=== PATIENT | male | born 1955 | race Caucasian/White ===

== ENCOUNTER 2021-05-03 18:32 | Inpatient (IN) | payer MEDICARE, SELFPAY ==
[2021-05-03] VITALS (8 sets, daily range): BP systolic 149–187; BP diastolic 99–123; PULSE 73–106; RESP 12–19; TEMP 36.1–36.6; O2SAT 94–97; BMI 35.0
--- NOTE | 2021-05-03 18:34 | EKG12_ITS ---
Test Reason : Blood Pressure : / mmHG Vent. Rate : 081 BPM Atrial Rate : 081 BPM P-R Int : 156 ms QRS Dur : 096 ms QT Int : 410 ms P-R-T Axes : 059 002 038 degrees QTc Int : 476 ms Normal sinus rhythm Inferior infarct , age undetermined Abnormal ECG Confirmed by TINO SHANKAR, JOHNATHON ([id number]), editor school photograph RACH MILES ([id number]) on 05/05/2021 11:01:30 AM Referred By: Confirmed By:JOHNATHON JIMÉNEZ MD
--- NOTE | 2021-05-03 18:34 | CT_ITS ---
STUDY: CT BRAIN WITHOUT CONTRAST REASON FOR EXAM: Male, 66 years old. Headache vertigo vomiting RADIATION DOSAGE (If Supplied By Facility): CTDIvol = ( 44.99 ) mGy, DLP = ( 880.47 ) mGycm TECHNIQUE: Transaxial CT imaging of the brain was performed without administration of intravenous contrast material. Individualized dose optimization techniques were used for this CT. COMPARISON: No relevant priors. FINDINGS: Brain parenchyma is without focal lesions, mass effect, acute intracranial hemorrhage, extra parenchymal fluid collections, hydrocephalus or herniation. The skull is intact. CT/Brain/Head without Contrast IMPRESSION: 1. Normal CT brain. Electronically Signed: Funmilayo Edouard MD at 19:31 EDT Tel , Service support ,
--- NOTE | 2021-05-03 18:36 | EX.ED.DYSGE1 ---
HPI History of Present Illness Chief Complaint: Weakness Informant: patient Narrative Narrative: 66-year-old male with a history of asthma states when he woke up this morning he felt very lightheaded and noted an occipital headache. He states it progressively has gotten worse throughout the day. He was able to eat dinner but after dinner everything seemed to get worse and he began to vomit. He notes that when he moves his eyes from side to side things do not focus as they should. But he denies any double vision. He notes tingling in his fingertips on both sides. No recent falls or head injuries. He describes dizziness not as a room spinning sensation but more of a lightheadedness [facility] Medical History (Updated 05/03/21 @ 21:[address] James Reyes DO) Asthma Home Medications albuterol sulfate [Ventolin HFA] 2 puff INHALATION Q6H PRN PRN 10/28/14 [History Last Taken Unknown] fluticasone propion-salmeterol [Advair Diskus] 1 puff INHALATION BID 10/28/14 [History Last Taken 10/31/14 09:00] Allergy/AdvReac Type Severity Reaction Status Date / Time latex Allergy Rash Verified 05/03/21 18:33 Surgical History H/O inguinal hernia repair H/O ventral hernia repair Social History (Updated 05/03/21 @ 18:[address] James Reyes DO) Smoking Status: Former smoker substance use type: does not use ROS ROS ED ROS Narrative Lightheadedness Constitutional Constitutional ED: Denies chills or weight loss Eyes Eyes: Reports change in vision; Denies diplopia ENT ENT ED: Denies ear pain, rhinorrhea or sore throat Cardiovascular Cardiovascular: Denies chest pain, orthopnea, palpitations or racing heartbeat Respiratory/Chest Respiratory/Chest: Denies cough, dyspnea or orthopnea Gastrointestinal Gastrointestinal: Reports nausea and vomiting; Denies abdominal pain or diarrhea Genitourinary Genitourinary ED: Denies dysuria, hematuria or urinary frequency Musculoskeletal Musculoskeletal: Denies arthralgias or myalgias Integumentary Denies abscess or rash Neurologic Neurologic: Reports headache(s); Denies weakness Psychiatric Psychiatric: Denies anxiety, depression, suicidal ideation or suicidal thoughts Endocrine Endocrinology: Denies polydipsia, polyphagia or polyuria Allergic/Immunologic Allergic/Immunologic ED: Denies mouth swelling, tongue swelling or urticaria EXAM Physical Exam Const Vital Signs: 05/03/21 18:33 05/03/21 18:38 05/03/21 18:53 Temperature 97.9 F Temperature Source Oral Pulse Rate 100 78 Respiratory Rate 18 12 Respiratory Effort Normal Non-Labored Respiratory Pattern Normal Blood Pressure 172/123 H 162/112 H Blood Pressure Mean 139 128 Pulse Ox 94 94 Oxygen Delivery Method Room Air Room Air 05/03/21 19:26 05/03/21 21:24 05/03/21 22:16 Temperature Temperature Source Pulse Rate 79 73 78 Respiratory Rate 17 15 16 Respiratory Effort Respiratory Pattern Blood Pressure 149/115 H 187/115 H 172/101 H Blood Pressure Mean 126 139 124 Pulse Ox 94 97 96 Oxygen Delivery Method Room Air Room Air Room Air 05/03/21 22:47 Temperature Temperature Source Pulse Rate 102 H Respiratory Rate 16 Respiratory Effort Respiratory Pattern Blood Pressure 162/99 H Blood Pressure Mean 120 Pulse Ox 95 Oxygen Delivery Method Room Air Positive well nourished and well developed General Appearance ED: well developed HEENT Reports normocephalic, head/scalp atraumatic, TM's clear and moist mucous membranes Negative for trauma Tympanic Membrane ED: Yes TM's clear Eyes PERRL and EOMs intact bilaterally Neck no lymphadenopathy, supple and no JVD Resp normal respiratory effort and clear to auscultation bilaterally Cardio regular rate, regular rhythm and no murmurs GI normal to inspection, nondistended, normoactive bowel sounds and non-tender Palpation: soft Back/Spine no CVA tenderness and normal ROM Extremity normal to inspection General Extremety ED: Negative for edema General Extremity: Negative for edema Neuro oriented x3 and CN's II-XII intact bilaterally Neuro Narrative: I do not appreciate nystagmus. He has a normal [id number] [id number]. Her scores NIH is 0. Watching him go from cot to bed he appears rather ataxic. Sensorium / Orientation: alert Motor Exam: strength 5/5 throughout Psych mental status grossly normal Mood & Affect: Negative for depressed or tearful Skin no rashes or lesions noted and no wounds MDM MDM MDM Narrative Medical decision making narrative: When the patient ambulates it appears that he is ataxic. White count elevated 12.8. Coags normal. Troponin XX [address] of the brain showed no acute finding. My interpretation of the chest x-ray is no acute process. Patient remains significantly hypertensive. He received a dose of clonidine which was ineffective so we gave him hydralazine. Currently blood pressure 162/99 and he is resting comfortably in the bed. Difficult to say if this is all hypertensive urgency or perhaps the patient had a cerebellar stroke rendering him ataxic. I think it is reasonable given his lack of history of hypertension to bring him into the hospital for further evaluation I will speak with her hospitalist Lab Data Attestation: I reviewed the patient's lab results. Labs: Laboratory Results - last 24 hr 05/03/21 05/03/21 05/03/21 18:40 18:40 18:40 WBC 12.8 H RBC 5.24 Hgb 15.4 Hct 47.7 MCV 91.0 MCH 29.4 MCHC 32.3 RDW Std Deviation 44.7 H RDW Coeff of [place] 13.2 Plt Count 288 MPV 9.9 Immature Gran % (Auto) 0.500 Neut % (Auto) 86.4 H Lymph % (Auto) 8.1 L [place] % (Auto) 4.4 Eos % (Auto) 0.1 Baso % (Auto) 0.5 Absolute Neuts (auto) 11.1 H Absolute Lymphs (auto) 1.04 Nucleated RBC % 0 PT 12.9 INR 1.0 APTT 29.1 Sodium 136 Potassium 3.8 Chloride 103 Carbon Dioxide 24.0 Anion Gap 9 BUN 14 Creatinine 1.19 Estim Creat Clear Calc 69.94 Est GFR (MDRD) Af Amer 79 Est GFR (MDRD) Non-Af 65 BUN/Creatinine Ratio 11.8 Glucose 185 H Calcium 9.3 Total Bilirubin 0.50 AST 19 ALT 40 Alkaline Phosphatase 116 Troponin I High Sens 23 Total Protein 8.4 H Albumin 3.7 Globulin 4.7 H Albumin/Globulin Ratio 0.8 L Lipase 47 L Radiography Diagnostic Testing: Clinical Impression(s) from Imaging Studies Brain CT 05/03/21 18:34 IMPRESSION: 1. Normal CT brain. Electronically Signed: Funmilayo Edouard MD at 19:31 EDT Tel , Service support , Chest X-Ray 05/03/21 19:09 IMPRESSION: Normal x-ray examination of the chest. Electronically Signed: Destiney Kimbrough MD at 21:48 EDT Tel , Service support , EKG Initial EKG: Attestation: I personally reviewed and interpreted this EKG as follows: Comments: Normal sinus rhythm with a ventricular rate of 81 bpm. Discharge Plan Dx/Rx/DC Orders Clinical Impression: Ataxia, Vomiting, Hypertensive urgency Disposition Disposition: Acute Care Hospital [facility]
[2021-05-03] MEDS: Ondansetron 4 MG/2 ML Vial IV (18:40)
[2021-05-03 18:49] LABS: Absolute Lymphocyte Count 1.04 X10^3/uL (0.83-4.51); Absolute Neutrophil Count 11.1 X10^3/uL (2.0-7.7); Basophil# 0.07 X10^3/uL; Basophil% 0.5 % (0-1); Eosinophil# 0.01 X10^3/uL; Eosinophils% 0.1 % (0-5); Hematocrit 47.7 % (40-54); Hemoglobin 15.4 g/dL (13.0-16.5); Lymphocyte # 1.04 X10^3/ul (0.83-4.51); Lymphocyte % 8.1 % (19-41); Mean Corp Hgb Conc 32.3 g/dL (32-36); Mean Corpuscular Hgb 29.4 pg (27.0-32.0); Mean Platelet Vol. 9.9 fl (6.2-12.0); Monocyte# 0.57 X10^3/uL; Monocyte% 4.4 % (0-10); NRBC Flagged by Analyzer 0 % (0-5); Neutrophil # 11.06 X10^3/uL (2.7-7.7); Neutrophil % 86.4 % (47-70); Platelet Count 288 K/mm3 (150-450); RBC Distribution Width CV 13.2 % (11.6-14.6); RBC Distribution Width SD 44.7 fl (35.1-43.9); Red Blood Count 5.24 M/mm3 (4.6-6.2); White Blood Count 12.8 K/mm3 (4.4-11.0)
[2021-05-03] MEDS: 0.9% Normal Saline 1,000 ML 150 ML IV (18:50)
--- NOTE | 2021-05-03 19:09 | RAD_ITS ---
STUDY: X-RAY CHEST REASON FOR EXAM: Male, 66 years old. lightheadedness TECHNIQUE: Single AP portable view of the chest. COMPARISON: None. FINDINGS: The lungs are clear and expanded. There is no demonstrated pleural abnormality. Normal size heart. Normal mediastinum and tierra. Normal visualized pulmonary arteries. Normal visualized aortic arch and descending thoracic aorta. Normal visualized thoracic spine. Normal visualized ribs, clavicles, and shoulders. There is no demonstrated abnormality of the visualized soft tissue structures of the upper abdomen. RAD/Chest 1 View (Portable) IMPRESSION: Normal x-ray examination of the chest. Electronically Signed: Destiney Kimbrough MD at 21:48 EDT Tel , Service support ,
[2021-05-03 19:12] LABS: ALB/GLOB Ratio 0.8 RATIO (0.9-2.4); AST(SGOT) 19 U/L (15-37); Alanine Aminotransfer ALT/SGPT 40 U/L (16-61); Albumin, Serum 3.7 g/dL (3.2-5.0); Alkaline Phosphatase 116 U/L (45-117); Anion Gap 9 (5-15); BUN 14 mg/dL (7-18); BUN/Creat Ratio 11.8 RATIO (10-20); Calcium,Total 9.3 mg/dL (8.5-10.1); Chloride 103 mmol/L (98-107); Creatinine, Serum 1.19 mg/dL (0.70-1.30); EST Glomerular Filtration Rate 65 mL/min (>60); Est Glom Filt Rate - Afr Amer 79 mL/min (>60); Estimated Creatinine Clearance 69.94 ml/min; Globulin 4.7 g/dL (2.2-4.2); Glucose 185 mg/dL (74-106); Lipase 47 U/L (73-393); Potassium 3.8 mmol/L (3.5-5.1); Protein, Total 8.4 g/dL (6.4-8.2); Sodium Level 136 mmol/L (136-145); Troponin-I HS 23 pg/mL (3.0-78.0)
[2021-05-03 19:41] LABS: Partial Thromboplast Time 29.1 Seconds (24.1-36.2); Prothrombin Time (Protime)PT. 12.9 SECONDS (11.7-14.9)
[2021-05-03] MEDS: 0.9% Normal Saline 1,000 ML 999 ML IV (20:08)
[2021-05-03] MEDS: cloNIDine HCl 0.1 MG Tablet PO (20:08)
[2021-05-03] MEDS: Ketorolac 30 MG/ML Syringe IV (20:09)
--- NOTE | 2021-05-03 20:28 | ED.RN ---
Patient shaking after toradol injection and asked to speak to a nurse. Patient BP 198/126, which has been elevated and was given a catapres. He has visible tremor that is more noticeable. [place] given and will continue to monitor.
--- NOTE | 2021-05-03 20:33 | NURSING ---
RN for patient and Dr Reyes both aware of tremor, shaking and BP status. Urinal given to patient.
[2021-05-03] MEDS: hydrALAZINE 20 MG/ML Vial IV (21:44)
[2021-05-03] MEDS: hydrALAZINE 20 MG/ML Vial 10 MG IV (22:17)
--- NOTE | 2021-05-03 23:02 | PCM.HP.STD ---
HPI - General General Date of Admission: 05/03/21 Date of Service: 05/03/21 Chief Complaint: Lightheaded, N/V, headache. HPI Narrative The patient is a 66 y/o M w/ PMHx: Asthma, Allergic rhinitis, Former Tobacco use who presents to the [facility] ED on 05/03/21 with history of fatigue, malaise, lightheadedness with occipital headache onset progressively worsening through the day with onset of nausea and emesis following dinner attempted intake with vision changes primarily having difficulty focusing with worsening with certain head movements but no blurring or double vision, especially when he moves his head but not specifically any kind of spinning sensation prompting eventual ED evaluation. Patient does report the occipital headache is mostly an aching, 3-4 out of 10 in severity. He does have a history in the past of migraines but these are not similar and he has not had any of these for many years. Work-up in the ED included T 97.9, heart rate 100, BP 172/123 initially but up to SBP 220s per discussion with ED physician with most recent repeat 162/99, respiratory rate 18, 94 to 97% on room air, CBC with WC 12.8, hemoglobin 15.4, platelet 288 with left shift, unremarkable coags, CMP with glucose 185 otherwise not marked appearing, high-sensitivity cardiac troponin 23, chest x-ray with no acute cardiopulmonary finding, CT head with no acute intracranial findings, EKG with sinus rhythm with no acute evidence of ischemia. In the ED patient ministered Zofran, Toradol, hydralazine 10 mg IV x1, 20 mg IV x1 and eventual clonidine 0.1 mg p.o. x1 in addition to a normal saline bolus and maintenance IV fluids. [facility] Medical History (Updated 05/03/21 @ 23:[address] Kacey Ruano MD) Allergic rhinitis Asthma Former tobacco use Obesity Home Medications albuterol sulfate [Ventolin HFA] 2 puff INHALATION Q6H PRN PRN 10/28/14 [History Last Taken Unknown] fluticasone propion-salmeterol [Advair Diskus] 1 puff INHALATION BID 10/28/14 [History Last Taken 10/31/14 09:00] Allergy/AdvReac Type Severity Reaction Status Date / Time latex Allergy Rash Verified 05/03/21 18:33 Family History (Updated 05/03/21 @ 23:[address] Kacey Ruano MD) Mother HLD (hyperlipidemia) Hypertension Heart disease CVA (cerebral vascular accident) Father HLD (hyperlipidemia) Hypertension Heart disease CVA (cerebral vascular accident) Surgical History H/O inguinal hernia repair H/O ventral hernia repair Social History (Updated 05/03/21 @ 23:[address] Kacey Ruano MD) household members: spouse Smoking Status: Former smoker alcohol intake: never substance use type: does not use ROS ROS Narrative Admission Review of Systems: CONSTITUTIONAL: No weight loss, fever, chills, + weakness or fatigue. HEENT: + FAGAN, vision changes with difficulty seeing but no specific double vision or blurred vision. Eyes: No visual loss, blurred vision, double vision or yellow sclerae. Ears, Nose, Throat: No hearing loss, sneezing, congestion, runny nose or sore throat. SKIN: No rash or itching, lesions, wounds. CARDIOVASCULAR: No chest pain, chest pressure or chest discomfort, palpitations, edema, orthopnea, syncopal events. RESPIRATORY: No shortness of breath, cough or sputum, wheezing, hemoptysis. GASTROINTESTINAL: + anorexia, nausea, vomiting, No diarrhea, abdominal pain, melena, BRBPR. GENITOURINARY: No dysuria, frequency, urgency or retention. NEUROLOGICAL: + headache, dizziness, No syncope, paralysis, ataxia, numbness or tingling in the extremities, focal weakness, change in bowel or bladder control, seizure. MUSCULOSKELETAL: No muscle, back pain, joint pain or stiffness. HEMATOLOGIC: No anemia, bleeding or bruising. LYMPHATICS: No enlarged nodes. No history of splenectomy. PSYCHIATRIC: No history of depression or anxiety. ENDOCRINOLOGIC: No reports of sweating, cold or heat intolerance. No polyuria or polydipsia. ALLERGIES: No history of asthma, hives, eczema or rhinitis. Vital Signs Vital Signs Vital Signs: 05/03/21 18:33 05/03/21 18:38 05/03/21 18:53 Temperature 97.9 F Temperature Source Oral Pulse Rate 100 78 Respiratory Rate 18 12 Respiratory Effort Normal Non-Labored Respiratory Pattern Normal Blood Pressure 172/123 H 162/112 H Blood Pressure Mean 139 128 Pulse Ox 94 94 Oxygen Delivery Method Room Air Room Air 05/03/21 19:26 05/03/21 21:24 05/03/21 22:16 Temperature Temperature Source Pulse Rate 79 73 78 Respiratory Rate 17 15 16 Respiratory Effort Respiratory Pattern Blood Pressure 149/115 H 187/115 H 172/101 H Blood Pressure Mean 126 139 124 Pulse Ox 94 97 96 Oxygen Delivery Method Room Air Room Air Room Air 05/03/21 22:47 Temperature Temperature Source Pulse Rate 102 H Respiratory Rate 16 Respiratory Effort Respiratory Pattern Blood Pressure 162/99 H Blood Pressure Mean 120 Pulse Ox 95 Oxygen Delivery Method Room Air Weight Weight: 265 lb 14.04 oz Body Mass Index (BMI) 35.0 Physical Exam Narrative Physical Examination: General: Awake, alert, oriented x 3 and cooperative, seated upright in the ED bed, fatigued and uncomfortable appearing, ill-appearing reporting nausea recurrence. Skin: Normal color, normal turgor, no icterus, no cyanosis. HEENT: AT/NC, EOMI, PERRLA, dry MM, peripheral enriquez of vision intact, still reports difficulty focusing but no blurred or double vision, no carotid bruits or JVD noted. Lungs: Diminished, greater bases, moderate effort, no rales, ronchi or wheezing. Heart: Tachycardic with regular rhythm; no gallop, rub audible. Abdomen: Soft, NTTP, ND, normal BS, no HSM. Extremities: No cyanosis, clubbing, or edema. Neurological: Patient awake, alert, oriented as noted, cognitive function intact; pupils equally reactive to light and accommodation, cranial nerves II-XII grossly normal, moving all 4 extremities, no focal deficits, sensation intact, peripheral vision intact, no nystagmus evident, strength preserved however generally debilitated secondary to acute presentation as noted. Psychiatric: Affect appears fatigued, ill-appearing, reporting he is nauseous again, no acute evidence of depressive or anxiety feelings. Results Lab / Micro Data Result Diagrams: 05/03/21 18:40 05/03/21 18:40 Labs: Laboratory Results - last 24 hr 05/03/21 18:40: WBC 12.8 H, RBC 5.24, Hgb 15.4, Hct 47.7, MCV 91.0, MCH 29.4, MCHC 32.3, RDW Std Deviation 44.7 H, RDW Coeff of [place] 13.2, Plt Count 288, MPV 9.9, Immature Gran % (Auto) 0.500, Neut % (Auto) 86.4 H, Lymph % (Auto) 8.1 L, [place] % (Auto) 4.4, Eos % (Auto) 0.1, Baso % (Auto) 0.5, Absolute Neuts (auto) 11.1 H, Absolute Lymphs (auto) 1.04, Nucleated RBC % 0 05/03/21 18:40: PT 12.9, INR 1.0, APTT 29.1 05/03/21 18:40: Sodium 136, Potassium 3.8, Chloride 103, Carbon Dioxide 24.0, Anion Gap 9, BUN 14, Creatinine 1.19, Estim Creat Clear Calc 69.94, Est GFR (MDRD) Af Amer 79, Est GFR (MDRD) Non-Af 65, BUN/Creatinine Ratio 11.8, Glucose 185 H, Calcium 9.3, Total Bilirubin 0.50, AST 19, ALT 40, Alkaline Phosphatase 116, Troponin I High Sens 23, Total Protein 8.4 H, Albumin 3.7, Globulin 4.7 H, Albumin/Globulin Ratio 0.8 L, Lipase 47 L Radiology Impression Brain CT 05/03/21 18:34 IMPRESSION: 1. Normal CT brain. Electronically Signed: Funmilayo Edouard MD at 19:31 EDT Tel , Service support , Chest X-Ray 05/03/21 19:09 IMPRESSION: Normal x-ray examination of the chest. Electronically Signed: Destiney Kimbrough MD at 21:48 EDT Tel , Service support , Assessment & Plan Assessment/Plan (1) Hypertensive urgency: (2) Ataxia: PLAN: The patient is a 66 y/o M w/ PMHx: Asthma, Allergic rhinitis, Former Tobacco use who presents to the [facility] ED on 05/03/21 with history of fatigue, malaise, lightheadedness with occipital headache onset progressively worsening through the day with onset of nausea and emesis following dinner attempted intake with vision changes primarily having difficulty focusing with worsening with certain head movements but no blurring or double vision, especially when he moves his head but not specifically any kind of spinning sensation prompting eventual ED evaluation. 1. Hypertensive Urgency versus potential Acute CVA, possibly posterior versus Complex migraine: EKG in ED with sinus rhythm with no acute evidence of ischemia, CXR w/ no acute cardiopulmonary finding, initial trop 23. Will admit to PCU, place on a monitored bed to assure no acute myocardial infarction with serial cardiac enzymes and EKGs. Additionally given presentation and concern for possible posterior stroke as etiology versus is hypertensive presentation will obtain MRI Brain, MRA Head and Neck, ECHO, PT/OT/Speech/Nutrition evaluation per protocol. Will maintain on asa, fall precautions. FLP in AM, Mag, TSH, HgbA1c pending. Will have PRN hypertensive IV agents with modified permissive HTN treatment. If MRI of the brain is negative will immediately need to likely more aggressively treat blood pressure is certainly hypertensive urgency could be the primary factor. If MRI negative but ongoing symptoms may need to consider complex migraine as well. Once work-up is obtained may benefit from neurology consultation. 2. Hyperglycemia: Admission glucose 185, will obtain HgbA1c to be cautious, if notable will add accu check w/ ISS, ADA diet transition. 3. Chronic asthma with allergic rhinitis: We will have as needed albuterol, continue fluticasone, encourage head of bed. 4. Former tobacco usage: Encouraged continued tobacco cessation. 5. Obesity: Weight loss and lifestyle changes encouraged. 6. DVT prophylaxis: SCDs, Lovenox. Charges/Coding Visit Charges Inpatient E&M: 75954 Init Hosp L3
[2021-05-03] MEDS: proMETHazine 25 MG Tablet PO (23:54)
[2021-05-04] VITALS (16 sets, daily range): BP systolic 143–179; BP diastolic 94–118; PULSE 76–135; RESP 16–18; TEMP 36.7–37.5; O2SAT 93–97; BMI 34.4
--- NOTE | 2021-05-04 00:02 | ECHOD_ITS ---
Reason For Study: CVA Procedure This was a 2D Doppler, Color Flow transthoracic echocardiogram. Exam performed portable in patient room. Left Ventricle Normal LV size. Mild concentric left ventricular hypertrophy. Left ventricular systolic function is normal. The estimated ejection fraction is 60 %. Stage 1 diastolic dysfunction. No regional wall motion abnormalities noted. Right Ventricle Normal RV size. Normal systolic function. Atria Normal left atrium. Normal right atrium. Bubble contrast study negative for right to left interatrial shunt. Mitral Valve Normal mitral valve. Tricuspid Valve Normal tricuspid valve. Aortic Valve Normal aortic valve. Trisinus/trileaflet aortic valve. Pulmonic Valve Normal pulmonic valve. Great Vessels Normal aortic root. The pulmonary artery is normal size. Normal inferior vena cava. Pericardium/Pleural No pericardial effusion. Medication Performed a rapid injection of agitated mix of 9 cc saline and 1cc air to assess for atrial septal defect. MMode/2D Measurements & Calculations LVIDd: 4.4 cm IVSd: 1.2 cm Ao root diam: 4.2 cm LVIDs: 2.5 cm LVPWd: 1.2 cm RVDd: 3.7 cm FS: 44.0 % LAV(MOD-bp): 55.5 ml LA A4 area: 20.4 cm2 LA dimension(2D): 4.2 cm LAV(MOD-bp) Indexed: 22.9 ml/m2 LAV(MOD-sp2): 48.9 ml LAV(MOD-sp4): 63.3 ml Time Measurements MV dec time: 0.17 sec Doppler Measurements & Calculations MV E max neal: 49.5 cm/sec Lat Peak E' Neal: 9.6 cm/sec Med Peak E' Neal: 6.2 cm/sec MV A max neal: 67.9 cm/sec E/E' lat: 5.2 E/E' med: 8.0 MV E/A: 0.73 Ao V2 max: 127.9 cm/sec LV V1 max: 96.1 cm/sec PA V2 max: 111.9 cm/sec Ao max P.5 mmHg LV V1 max P.7 mmHg ECHO/Echo Complete Interpretation Summary Normal LV size. Left ventricular systolic function is normal. The estimated ejection fraction is 60 %. Stage 1 diastolic dysfunction. Bubble contrast study negative for right to left interatrial shunt. Ordering Physician: Kacey Ruano Referring Physician: JULIÁN PCP Performed By: Leda Baez, VIRY, RVT
--- NOTE | 2021-05-04 00:02 | MRI_ITS ---
We are attempting to reach an attending provider to discuss findings. An addendum with communication details will be sent when the communication is complete. STUDY: MRA OF THE HEAD WITHOUT CONTRAST REASON FOR EXAM: Male, 66 years old. CVA. CVA TECHNIQUE: 3-D [id number] (TOF) imaging was performed with MIPs. The study was performed unenhanced. COMPARISON: None. FINDINGS: Patent right cavernous carotid artery. Patent left cavernous carotid artery. Patent right A1 segments of the anterior cerebral artery. Patent left A1 segments of the anterior cerebral artery. Unremarkable anterior communicating artery (ACOM) region. Normal bilateral A2 segments of the anterior cerebral arteries. Patent right M1 and M2 segments of the middle cerebral arteries, with a unremarkable M1 bifurcation. Patent left M1 and M2 segments of the middle cerebral arteries, with a unremarkable M1 bifurcation. There is non-visualization of the right posterior communicating artery (PCOM). There is a persistent origin of the left posterior cerebral artery with absence of the P1 segment of the left posterior cerebral artery. Patent basilar artery with a normal basilar bifurcation. Patent bilateral posterior cerebral arteries. There is occlusion of the distal left vertebral artery MRI/MRA Head ONLY without Contrast IMPRESSION: Left vertebral artery occlusion. Further evaluation with CTA can be obtained. Electronically Signed: Jc Salvador MD at 14:21 EDT Tel , Service support ,
--- NOTE | 2021-05-04 00:02 | MRI_ITS ---
We are attempting to reach an attending provider to discuss findings. An addendum with communication details will be sent when the communication is complete. STUDY: MRI BRAIN WITHOUT CONTRAST REASON FOR EXAM: Male, 66 years old. CVA TECHNIQUE: Standardized multiplanar fat and water weighted pulse sequences were obtained. COMPARISON: 05/03/2021 CT of the head FINDINGS: Normal size of the ventricles and extra-axial spaces for the patient''s age. There are multiple white matter hyperintensities, distributed throughout the deep white matter tracts of the cerebral hemispheres, consistent with mild chronic white matter ischemic changes. There is approximately 1 cm area of restricted diffusion involving the left paramedian medulla (diffusion image #6 series 4) there is drop of signal on ADC map, consistent with acute infarctions.. Normal bilateral basal ganglia. Normal thalami. There is no extra-axial fluid accumulation. Normal flow voids within the major intracranial circulation suggesting patency by spin echo criteria. Normal sella turcica, pituitary gland, infundibular stalk, optic chiasm and hypothalamus. Normal tectal plate and pineal gland. MRI/Brain without Contrast IMPRESSION: Acute left medullary infarct. Mild chronic microvascular ischemic changes. Electronically Signed: Jc Salvador MD at 14:14 EDT Tel , Service support ,
--- NOTE | 2021-05-04 00:02 | MRI_ITS ---
STUDY: MRA NECK WITHOUT CONTRAST REASON FOR EXAM: Male, 66 years old. CVA. CVA TECHNIQUE: Source images were obtained, MIPs were performed. The study was performed unenhanced. COMPARISON: None. FINDINGS: RIGHT CAROTID ARTERIES: Antegrade flow within the right common carotid artery (CCA). Antegrade flow within the right carotid bulb. Antegrade flow within the right internal carotid (ICA) artery. Antegrade flow within the visualized cervical portion of the right internal carotid artery. LEFT CAROTID ARTERIES: Antegrade flow within the left common carotid artery (CCA). Antegrade flow within the left common carotid bulb. Antegrade flow within the origin of the left internal carotid (ICA) artery. Antegrade flow within the visualized cervical portion of the left internal carotid artery. VERTEBRAL ARTERIES: There is antegrade flow within the bilateral vertebral arteries with a small left vertebral artery, and a dominant right vertebral artery. There is occlusion of the distal left vertebral artery. MRI/MRA Neck without Contrast IMPRESSION: Occluded distal left vertebral artery. Further evaluation with CTA can be obtained. Electronically Signed: Jc Salvador MD at 14:20 EDT Tel , Service support ,
[2021-05-04 00:07] LABS: Magnesium 2.1 mg/dL (1.6-2.6)
--- NOTE | 2021-05-04 01:05 | PCS.PANDOC ---
PANDEMIC DOCUMENTATION INITIATED: Date: 02/23/2021 Time: 190
[2021-05-04 01:10] LABS: Troponin-I HS 35 pg/mL (3.0-78.0)
[2021-05-04] MEDS: 0.9% Normal Saline 1,000 ML 100 ML IV ×3 (01:15→23:00)
[2021-05-04 02:43] LABS: Troponin-I HS 45 pg/mL (3.0-78.0)
[2021-05-04] MEDS: Budesonide Respules 0.5 MG/2 ML AMPUL.NEB. INHALATION (07:31)
[2021-05-04] MEDS: Albuterol 2.5 MG/3 ML VIAL.NEB. INHALATION (07:31)
[2021-05-04 07:34] LABS: Absolute Lymphocyte Count 0.89 X10^3/uL (0.83-4.51); Absolute Neutrophil Count 11.4 X10^3/uL (2.0-7.7); Basophil# 0.04 X10^3/uL; Basophil% 0.3 % (0-1); Eosinophil# 0.68 X10^3/uL; Eosinophils% 4.9 % (0-5); Hematocrit 46.5 % (40-54); Hemoglobin 14.7 g/dL (13.0-16.5); Lymphocyte # 0.89 X10^3/ul (0.83-4.51); Lymphocyte % 6.4 % (19-41); Mean Corp Hgb Conc 31.6 g/dL (32-36); Mean Corpuscular Hgb 29.4 pg (27.0-32.0); Mean Platelet Vol. 10.3 fl (6.2-12.0); Monocyte# 0.85 X10^3/uL; Monocyte% 6.1 % (0-10); NRBC Flagged by Analyzer 0 % (0-5); Neutrophil # 11.36 X10^3/uL (2.7-7.7); Neutrophil % 81.7 % (47-70); POSITIVE MORPHOLOGY YES; Platelet Count 272 K/mm3 (150-450); RBC Distribution Width CV 13.4 % (11.6-14.6); RBC Distribution Width SD 45.9 fl (35.1-43.9); White Blood Count 13.9 K/mm3 (4.4-11.0)
[2021-05-04 07:46] LABS: Differential Indicated SCAN CRITERIA MET
[2021-05-04 08:20] LABS: ALB/GLOB Ratio 0.8 RATIO (0.9-2.4); AST(SGOT) 15 U/L (15-37); Alanine Aminotransfer ALT/SGPT 34 U/L (16-61); Albumin, Serum 3.2 g/dL (3.2-5.0); Alkaline Phosphatase 99 U/L (45-117); Anion Gap 10 (5-15); BUN 15 mg/dL (7-18); BUN/Creat Ratio 14.3 RATIO (10-20); Calcium,Total 8.5 mg/dL (8.5-10.1); Chloride 99 mmol/L (98-107); Cholesterol 261 mg/dL (200); Creatinine, Serum 1.05 mg/dL (0.70-1.30); EST Glomerular Filtration Rate 75 mL/min (>60); Est Glom Filt Rate - Afr Amer 91 mL/min (>60); Estimated Creatinine Clearance 79.27 ml/min; Globulin 4.2 g/dL (2.2-4.2); Glucose 133 mg/dL (74-106); High Density Lipoprotein 51 mg/dL; Potassium 3.6 mmol/L (3.5-5.1); Protein, Total 7.4 g/dL (6.4-8.2); Sodium Level 136 mmol/L (136-145); Thyroid Stim Hormone (TSH) 0.44 uIU/mL (0.358-3.74); Triglycerides 76 mg/dL; Troponin-I HS 41 pg/mL (3.0-78.0); Very Low Density Lipoprotein 15 mg/dL (5-40)
[2021-05-04] MEDS: Enoxaparin 40 MG/0.4 ML Syringe SC (08:36)
[2021-05-04] MEDS: Aspirin 81 MG TAB.CHEW PO (08:37)
[2021-05-04] MEDS: Famotidine 20 MG Tablet PO ×2 (08:37→20:53)
[2021-05-04 09:40] LABS: Hemoglobin A1c 5.9 % (3.8-5.6)
--- NOTE | 2021-05-04 11:15 | CASEMGMT ---
JOSSE CHAUDHARY assessment: Face to Face with patient for initial transition planning/care coordination assessment. JOSSE CHAUDHARY introduced self and role at [facility], pt voices understanding and consents to assessment. Pt is sitting up in bed in no distress on room air. Pt is A/Ox4 and answers all questions appropriately. Pt's is at bedside during assessment. Care providers, pharmacy, and demographics verified/updated. Presentation: Pt c/o weak, lightheaded, vomiting with headache since this am Admitting dx: HTN urgency, CVA PCP: Pt does not have PCP but list provided. Specialists: Pt states no current specialists. Preferred Pharmacy: [facility] Insurance: [facility] A/B Prescription Benefit: Self pay Living Will/HPOA: Pt states does not have LW/HPOA and declines AD info. LNOK: Criss Herrera, Living Arrangements: Pt states lives with in 2 story home and states no concerns at home. Pt is independent with ADL's. Transportation: Pt states drives self and states no transportation concerns. DME/HHC: Pt states no current DME or need for any further DME. Pt states no hx of HHC or SNF. Pt states no concerns with going home at time of discharge. Pt is retired. Pt states does not smoke cigarettes or drink ETOH. Pt states no further concerns/needs. CM to follow for any further discharge planning/needs. Advised pt to ask for CM if any further questions/concerns/needs arise, voices understanding. Pt Goal: Home Plan: [place] JOSSE CHAUDHARY
[2021-05-04] MEDS: ChlorproMAZINE 25 MG Tablet PO ×3 (11:39→20:58)
--- NOTE | 2021-05-04 14:48 | TELEMED_ITS ---
SOC Telemed has confirmed receipt of a request for visit. This document confirms receipt of the order initiating the consult. To find the results of the consultation, please view the patient's reports for the scanned Telemed Consult.
--- NOTE | 2021-05-04 14:50 | PCM.PN.HOSP ---
Documented by User: Barbara Zuñiga FELLING BUCKING SUPERVISOR, FELLING BUCKING SUPERVISOR-C 05/04/21 14:57 Subjective Subjective Patient seen and examined. MRI positive for stroke. Headaches improved. SOC neurology consult pending. Objective Data Objective Data Vital Signs: Vital Signs Temp Pulse Resp BP Pulse Ox 98.3 F 76 16 158/96 H 96 05/04/21 14:37 05/04/21 14:37 05/04/21 14:37 05/04/21 14:37 05/04/21 14:37 Oxygen Delivery Method Room Air Weight: 261 lb 11.019 oz Body Mass Index (BMI) 34.4 Intake & Output: Intake and Output for Last 24 Hours 05/02/21 05/03/21 05/04/21 23:59 23:59 23:59 Intake Total 1000 / 1000 2185 / 2185 Output Total 600 / 600 Balance 1000 / 1000 1585 / 1585 Lab / Micro Data Result Diagrams: 05/04/21 06:13 05/04/21 06:13 Labs: Laboratory Results - last 24 hr 05/03/21 18:40: WBC 12.8 H, RBC 5.24, Hgb 15.4, Hct 47.7, MCV 91.0, MCH 29.4, MCHC 32.3, RDW Std Deviation 44.7 H, RDW Coeff of [place] 13.2, Plt Count 288, MPV 9.9, Immature Gran % (Auto) 0.500, Neut % (Auto) 86.4 H, Lymph % (Auto) 8.1 L, [place] % (Auto) 4.4, Eos % (Auto) 0.1, Baso % (Auto) 0.5, Absolute Neuts (auto) 11.1 H, Absolute Lymphs (auto) 1.04, Nucleated RBC % 0 05/03/21 18:40: PT 12.9, INR 1.0, APTT 29.1 05/03/21 18:40: Sodium 136, Potassium 3.8, Chloride 103, Carbon Dioxide 24.0, Anion Gap 9, BUN 14, Creatinine 1.19, Estim Creat Clear Calc 69.94, Est GFR (MDRD) Af Amer 79, Est GFR (MDRD) Non-Af 65, BUN/Creatinine Ratio 11.8, Glucose 185 H, Calcium 9.3, Total Bilirubin 0.50, AST 19, ALT 40, Alkaline Phosphatase 116, Troponin I High Sens 23, Total Protein 8.4 H, Albumin 3.7, Globulin 4.7 H, Albumin/Globulin Ratio 0.8 L, Lipase 47 L 05/03/21 18:40: Magnesium 2.1 05/04/21 00:25: Troponin I High Sens 35 05/04/21 02:15: Troponin I High Sens 45 05/04/21 06:13: WBC 13.9 H, RBC 5.00, Hgb 14.7, Hct 46.5, MCV 93.0, MCH 29.4, MCHC 31.6 L, RDW Std Deviation 45.9 H, RDW Coeff of [place] 13.4, Plt Count 272, MPV 10.3, Immature Gran % (Auto) 0.600, Neut % (Auto) 81.7 H, Lymph % (Auto) 6.4 L, [place] % (Auto) 6.1, Eos % (Auto) 4.9, Baso % (Auto) 0.3, Absolute Neuts (auto) 11.4 H, Absolute Lymphs (auto) 0.89, Nucleated RBC % 0 05/04/21 06:13: Sodium 136, Potassium 3.6, Chloride 99, Carbon Dioxide 27.0, Anion Gap 10, BUN 15, Creatinine 1.05, Estim Creat Clear Calc 79.27, Est GFR (MDRD) Af Amer 91, Est GFR (MDRD) Non-Af 75, BUN/Creatinine Ratio 14.3, Glucose 133 H, Calcium 8.5, Total Bilirubin 0.50, AST 15, ALT 34, Alkaline Phosphatase 99, Troponin I High Sens 41, Total Protein 7.4, Albumin 3.2, Globulin 4.2, Albumin/Globulin Ratio 0.8 L, Triglycerides 76, Cholesterol 261 H, LDL Cholesterol 195 H, VLDL Cholesterol 15, HDL Cholesterol 51, TSH 0.44 05/04/21 06:13: Hemoglobin A1c 5.9 H Micro: Microbiology 05/03/21 23:40 Nasal Secretion SARS-CoV-2 Antigen (Rapid) - Final Radiography Diagnostic Testing: Radiology Impression Brain CT 05/03/21 18:34 IMPRESSION: 1. Normal CT brain. Electronically Signed: Funmilayo Edouard MD at 19:31 EDT Tel , Service support , Chest X-Ray 05/03/21 19:09 IMPRESSION: Normal x-ray examination of the chest. Electronically Signed: Destiney Kimbrough MD at 21:48 EDT Tel , Service support , Brain MRI 05/04/21 00:02 IMPRESSION: Acute left medullary infarct. Mild chronic microvascular ischemic changes. Electronically Signed: Jc Salvador MD at 14:14 EDT Tel , Service support , ADDENDUM: 05/04/21 1430 IMPRESSION: Acute left medullary infarct. Mild chronic microvascular ischemic changes. N.B. : The above Results were Read Back by Jc Salvador MD to Missy Burnette RN, and understanding confirmed on 05/04/2021 14:23:05 (ET). Electronically Signed: Jc Salvador MD at 14:14 EDT Tel , Service support , Echocardiogram 05/04/21 00:02 Interpretation Summary Normal LV size. Left ventricular systolic function is normal. The estimated ejection fraction is 60 %. Stage 1 diastolic dysfunction. Bubble contrast study negative for right to left interatrial shunt. Ordering Physician: Kacey Ruano Referring Physician: JULIÁN PCP Performed By: Leda Baez, KRISSYCS, RVT Head MRA 05/04/21 00:02 IMPRESSION: Left vertebral artery occlusion. Further evaluation with CTA can be obtained. Electronically Signed: Jc Salvador MD at 14:21 EDT Tel , Service support , Neck MRA 05/04/21 00:02 IMPRESSION: Occluded distal left vertebral artery. Further evaluation with CTA can be obtained. Electronically Signed: Jc Salvador MD at 14:20 EDT Tel , Service support , Physical Exam Const alert, oriented x3 and no apparent distress Orientation / Consciousness: awake, oriented to person, oriented to place and oriented to time HEENT normocephalic and moist oral mucous membranes Eyes PERRL, EOMs intact bilaterally and conjunctivae normal Neck no lymphadenopathy Resp normal respiratory effort and clear to auscultation bilaterally Cardio regular rate, regular rhythm and no murmurs Peripheral Pulses: pulses 2+ throughout GI normal to inspection, nondistended, normoactive bowel sounds, non-tender and non-distended Extremity normal to inspection Skin no rashes or lesions noted Lesions: no lesions Rashes: no rashes Trauma: no lacerations or abrasions Neuro CN's II-XII intact bilaterally, no focal motor deficits, no sensory deficits noted and deep tendon reflexes 2+ bilaterally Psych mental status grossly normal and affect normal Assessment & Plan Assessment/Plan (1) Hypertensive urgency: (2) CVA (cerebral vascular accident): PLAN: 1. 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 MRA of neck with occluded distal left vertebral artery. Echocardiogram demonstrates an EF of 60%, stage I diastolic dysfunction. Aspirin, statin, Plavix. PT/OT/ST. Obtain SOC neurology consult. 2. Hypertensive urgency-blood pressure improving. Permissive given #1. As needed labetalol/hydralazine. 3. Prediabetes-hemoglobin A1c 5.9%. Recommend carb controlled diet and outpatient follow-up. 4. Hyperlipidemia-initiated on high-dose statin. 5. Chronic asthma-as needed albuterol aerosol. 6. Former tobacco use-encouraged cessation. 7. Obesity-encouraged diet and lifestyle modifications. DVT prophylaxis- Lovenox sc This patient was seen by DAGOBERTO Lehman under the supervision of Dr. Trujillo. Documented by User: Dr. Kimberly Trujillo MD 05/04/21 15:49 Objective Data Lab / Micro Data Result Diagrams: 05/04/21 06:13 05/04/21 06:13 Charges/Coding Addendum Addendum: Patient seen by Barbara ARENAS under my supervision Patient seen and examined. He was admitted with a complaint of fatigue, dizziness and lightheadedness as well as occipital headache which gradually worsened. He was found to have markedly elevated BP on admission. He was admitted to rule out posterior stroke vs hypertensive urgency. He still complained of persistent dizziness, nausea and vomiting. Headache had improved. Review of systems was otherwise negative. He is for MRI of the brain today. O/E: Const alert, oriented x3 and no apparent distress Orientation / Consciousness: awake, oriented to person, oriented to place and oriented to time HEENT normocephalic and moist oral mucous membranes Eyes PERRL, EOMs intact bilaterally and conjunctivae normal Neck no lymphadenopathy Resp normal respiratory effort and clear to auscultation bilaterally Cardio regular rate, regular rhythm and no murmurs Peripheral Pulses: pulses 2+ throughout GI normal to inspection, nondistended, normoactive bowel sounds, non-tender and non-distended Extremity normal to inspection Skin no rashes or lesions noted Lesions: no lesions Rashes: no rashes Trauma: no lacerations or abrasions Neuro CN's II-XII intact bilaterally, no focal motor deficits, no sensory deficits noted and deep tendon reflexes 2+ bilaterally Psych mental status grossly normal and affect normal MRI of the brain done today showed acute left medullary infarct. MRA of the head and neck showed a distal left vertebral artery occlusion. SOC neurology consulted. On aspirin and plavix as well as high intensity statin. 2D echo showed EF of 60% with normal LV size, and mild concentric LV hypertrophy and stage 1 diastolic dysfunction, with no regional wall motion abnormalities noted. PT/OT consulted. Fall precautions. Check A1C. Allow for permissive hypertension, and start on BP meds tomorrow. Check lipid panel. Rest as per Barbara Zuñiga FELLING BUCKING SUPERVISOR-C's note, which I have reviewed and endorsed. Visit Charges Inpatient E&M: 76312 Subs Hosp L2
--- NOTE | 2021-05-04 15:46 | NURSING ---
This RN reviewed all SN charting
[2021-05-04] MEDS: Clopidogrel Bisulfate 75 MG Tablet PO (15:47)
[2021-05-04] MEDS: Ondansetron 4 MG/2 ML Vial IV (17:23)
[2021-05-04] MEDS: Atorvastatin Calcium 80 MG Tablet PO (20:53)
[2021-05-05] VITALS (9 sets, daily range): BP systolic 127–165; BP diastolic 90–107; PULSE 89–114; RESP 16–20; TEMP 36.7–36.9; O2SAT 94–97
[2021-05-05] MEDS: ChlorproMAZINE 25 MG Tablet PO ×2 (06:05→13:10)
[2021-05-05] MEDS: Acetaminophen 325 MG Tablet 650 MG PO (06:06)
[2021-05-05] MEDS: Meclizine HCl 25 MG Tablet PO (06:07)
[2021-05-05] MEDS: Budesonide Respules 0.5 MG/2 ML AMPUL.NEB. INHALATION (07:01)
[2021-05-05] MEDS: Albuterol 2.5 MG/3 ML VIAL.NEB. INHALATION ×2 (07:01→13:34)
[2021-05-05] MEDS: Enoxaparin 40 MG/0.4 ML Syringe SC (08:35)
[2021-05-05] MEDS: Famotidine 20 MG Tablet PO (08:35)
[2021-05-05] MEDS: 0.9% Normal Saline 1,000 ML 100 ML IV (08:35)
[2021-05-05] MEDS: Clopidogrel Bisulfate 75 MG Tablet PO (08:36)
[2021-05-05] MEDS: Aspirin 81 MG TAB.CHEW PO (08:36)
--- NOTE | 2021-05-05 12:28 | PCM.DC ---
Discharge Instructions Diet Discharge Diet: Low fat / Low cholesterol and Carb Control Diet Activity Discharge Activity: Return to Normal Activity and May Not Drive (Until vision changes resolved) Dressing / Incision Call your doctor if you observe: Shortness of breath, Dizziness and Chest pain Follow Up Care Test Results: Test results from this visit will be discussed in further detail at your follow-up appointment, if applicable. Discharge Plan Admission Admit Date/Time: 05/03/21 23:10 Primary Reason for Your Visit: Stroke Attending Provider: Diego Conn Primary Care Provider: Care Physician,No Primary Instructions Additional Instructions / Restrictions: Follow-up with ophthalmology in 4 to 6 weeks if no improvement in vision changes. Discharge Orders/Prescriptions Prescriptions: New atorvastatin 80 mg Tablet 80 mg PO QHS Qty: 30 RF: 0 clopidogrel 75 mg Tablet 75 mg PO DAILY Qty: 21 RF: 0 aspirin 81 mg Tablet,Chewable 81 mg PO BREAKFAST Qty: 30 RF: 0 Continued fluticasone propion-salmeterol [Advair Diskus] 1 PUFF inhaler 1 puff inhalation BID RF: 0 albuterol sulfate [Ventolin HFA] 1 INHALER inhaler 2 puff inhalation Q6H PRN PRN (Reason: Sob &/Or Wheezing) RF: 0 Referrals / Follow Up: Candelario Cam MD [STAFF PHYSICIAN] - Within 2 Weeks Care Physician,No Primary [Primary Care Provider] - In 1 Week Disposition Disposition (needs filled in before D/C Order can be placed): Home, Self Care
--- NOTE | 2021-05-05 12:39 | DS.PCM_ITS ---
Documented by User: Barbara Zuñiga NP, STOCK UNLOADER-C 05/05/21 12:44 Providers Date of Admission: 05/03/21 Date of Discharge: 05/05/21 Primary Care Physician: No Primary Care Phys Reason For Visit: HTN URGENCY, POSSIBLE POSTERIOR CVA Diagnosis Discharge Diagnosis (1) Hypertensive urgency: Status: Acute Code(s): I16.0 - Hypertensive urgency (2) CVA (cerebral vascular accident): Status: Acute Code(s): I63.9 - Cerebral infarction, unspecified Medications at Discharge Home Medications albuterol sulfate [Ventolin HFA] 2 puff INHALATION Q6H PRN PRN 10/28/14 fluticasone propion-salmeterol [Advair Diskus] 1 puff INHALATION BID 10/28/14 aspirin 81 mg PO DAILY 05/05/21 atorvastatin 80 mg PO QHS 05/05/21 chlorpromazine [Thorazine] 25 mg PO Q4H PRN 05/05/21 clopidogrel 75 mg PO DAILY 05/05/21 meclizine [Antivert] 25 mg PO BID 05/05/21 Hospital Course Operations None Procedures 2-D Echocardiogram Summary of Care Provided Minutes Spent on Discharge: 35 Hospital Course: Patient is a 66-year-old male admitted 05/03/2021 due to lightheadedness, dizziness, headache. 1. 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 MRA of neck with occluded distal left vertebral artery. Echocardiogram demonstrates an EF of 60%, stage I diastolic dysfunction. Aspirin, statin, Plavix. Continue dual antiplatelet therapy for 21 days followed by aspirin only. SOC neurology consulted. Recommends continued permissive hypertension until follow-up with PCP. If blood pressure remains elevated, may consider low-dose ZAHEER inhibitor, ARB or diuretic. If vision changes do not resolve in 4 to 6 weeks, recommend follow-up with ophthalmology. Follow-up with PCP in 1 week. Follow-up with neurology in 2 weeks. 2. Hypertensive urgency-blood pressure improving. Permissive given #1. 3. Prediabetes-hemoglobin A1c 5.9%. Recommend carb controlled diet and outpatient follow-up. 4. Hyperlipidemia-initiated on high-dose statin. 5. Chronic asthma-as needed albuterol aerosol. 6. Former tobacco use-encouraged cessation. 7. Obesity-encouraged diet and lifestyle modifications. Physical Exam Const alert, oriented x3 and no apparent distress Orientation / Consciousness: awake, oriented to person, oriented to place and oriented to time HEENT normocephalic and moist oral mucous membranes Eyes PERRL, EOMs intact bilaterally and conjunctivae normal Neck no lymphadenopathy Resp normal respiratory effort and clear to auscultation bilaterally Cardio regular rate, regular rhythm and no murmurs Peripheral Pulses: pulses 2+ throughout GI normal to inspection, nondistended, normoactive bowel sounds, non-tender and non-distended Extremity normal to inspection Skin no rashes or lesions noted Lesions: no lesions Rashes: no rashes Trauma: no lacerations or abrasions Neuro CN's II-XII intact bilaterally, no focal motor deficits, no sensory deficits noted and deep tendon reflexes 2+ bilaterally Psych mental status grossly normal and affect normal Patient seen and examined prior to discharge. Physical assessment as noted above. Patient is stable for discharge with follow up recommendations as noted above. This patient was seen by DAGOBERTO Lehman under the supervision of Dr. Conn. Weight / BMI Weight Weight: 262 lb 9.129 oz Body Mass Index (BMI) 34.4 ABG / Lab / Microbiology Data Result Diagrams: 05/04/21 06:13 05/04/21 06:13 Microbiology: Microbiology 05/03/21 23:40 Nasal Secretion SARS-CoV-2 Antigen (Rapid) - Final Radiography Diagnostic Testing: Radiology Impression Brain MRI 05/04/21 00:02 IMPRESSION: Acute left medullary infarct. Mild chronic microvascular ischemic changes. Electronically Signed: Jc Salvador MD at 14:14 EDT Tel , Service support , ADDENDUM: 05/04/21 1430 IMPRESSION: Acute left medullary infarct. Mild chronic microvascular ischemic changes. N.B. : The above Results were Read Back by Jc Salvador MD to Missy Burnette RN, and understanding confirmed on 05/04/2021 14:23:05 (ET). Electronically Signed: Jc Salvador MD at 14:14 EDT Tel , Service support , Echocardiogram 05/04/21 00:02 Interpretation Summary Normal LV size. Left ventricular systolic function is normal. The estimated ejection fraction is 60 %. Stage 1 diastolic dysfunction. Bubble contrast study negative for right to left interatrial shunt. Ordering Physician: Kacey Ruano Referring Physician: JULIÁN PCP Performed By: Leda Baez RDCS, RVT Head MRA 05/04/21 00:02 IMPRESSION: Left vertebral artery occlusion. Further evaluation with CTA can be obtained. Electronically Signed: Jc Salvador MD at 14:21 EDT Tel , Service support , ADDENDUM: 05/04/21 1533 IMPRESSION: Left vertebral artery occlusion. Further evaluation with CTA can be obtained. N.B. : The above Results were Read Back by Jc Salvador MD to Missy Burnette RN, RN, and understanding confirmed on 05/04/2021 15:26:56 (ET). Electronically Signed: Jc Salvador MD at 14:21 EDT Tel , Service support , Neck MRA 05/04/21 00:02 IMPRESSION: Occluded distal left vertebral artery. Further evaluation with CTA can be obtained. Electronically Signed: Jc Salvador MD at 14:20 EDT Tel , Service support , D/C Instructions Discharge Diet: Low fat / Low cholesterol and Carb Control Diet Call your doctor if you observe: Shortness of breath, Dizziness and Chest pain Meaningful Use Info Meaningful Use Diagnoses (Choose all that apply): Ischemic CVA CVA Therapy Assessed for PT,OT and/or ST?: Yes Ischemic Stroke Antithrombotic order at d/c?: Yes Dx of Atrial fib/flutter?: No Statins at discharge?: Yes Primary Dx Acute Ischemic CVA?: Yes IV tPA ordered during stay?: No Reason IV t-PA not ordered: Medical Contraindication Discharge Plan Admission Admit Date/Time: 05/03/21 23:10 Primary Reason for Your Visit: Stroke Attending Provider: Diego Conn Primary Care Provider: Care Physician,No Primary Instructions Additional Instructions / Restrictions: Follow-up with ophthalmology in 4 to 6 weeks if no improvement in vision changes. Discharge Orders/Prescriptions Prescriptions: Continued fluticasone propion-salmeterol [Advair Diskus] 1 PUFF inhaler 1 puff inhalation BID RF: 0 albuterol sulfate [Ventolin HFA] 1 INHALER inhaler 2 puff inhalation Q6H PRN PRN (Reason: Sob &/Or Wheezing) RF: 0 No Action meclizine [Antivert] 25 mg Tablet 25 mg PO BID RF: 0 chlorpromazine [Thorazine] 25 mg Tablet 25 mg PO Q4H PRN (Reason: Hiccups) RF: 0 atorvastatin 80 mg tablet 80 mg PO QHS RF: 0 clopidogrel 75 mg tablet 75 mg PO DAILY RF: 0 aspirin 81 mg tablet,chewable 81 mg PO DAILY RF: 0 Referrals / Follow Up: Candelario Cam MD [STAFF PHYSICIAN] - Within 2 Weeks Care Physician,No Primary [Primary Care Provider] - In 1 Week Disposition Disposition (needs filled in before D/C Order can be placed): Home, Self Care Documented by User: Dr. Diego Conn DO 05/05/21 20:03 Providers Date of Admission: 05/03/21 Reason For Visit: HTN URGENCY, POSSIBLE POSTERIOR CVA Medications at Discharge Home Medications albuterol sulfate [Ventolin HFA] 2 puff INHALATION Q6H PRN PRN 10/28/14 fluticasone propion-salmeterol [Advair Diskus] 1 puff INHALATION BID 10/28/14 aspirin 81 mg PO DAILY 05/05/21 atorvastatin 80 mg PO QHS 05/05/21 chlorpromazine [Thorazine] 25 mg PO Q4H PRN 05/05/21 clopidogrel 75 mg PO DAILY 05/05/21 meclizine [Antivert] 25 mg PO BID 05/05/21 ABG / Lab / Microbiology Data Result Diagrams: 05/04/21 06:13 05/04/21 06:13 Discharge Plan Admission Admit Date/Time: 05/03/21 23:10 Primary Reason for Your Visit: Stroke Attending Provider: Diego Conn Primary Care Provider: Care Physician,No Primary Instructions Additional Instructions / Restrictions: Follow-up with ophthalmology in 4 to 6 weeks if no improvement in vision changes. Discharge Orders/Prescriptions Prescriptions: Continued fluticasone propion-salmeterol [Advair Diskus] 1 PUFF inhaler 1 puff inhalation BID RF: 0 albuterol sulfate [Ventolin HFA] 1 INHALER inhaler 2 puff inhalation Q6H PRN PRN (Reason: Sob &/Or Wheezing) RF: 0 No Action meclizine [Antivert] 25 mg Tablet 25 mg PO BID RF: 0 chlorpromazine [Thorazine] 25 mg Tablet 25 mg PO Q4H PRN (Reason: Hiccups) RF: 0 atorvastatin 80 mg tablet 80 mg PO QHS RF: 0 clopidogrel 75 mg tablet 75 mg PO DAILY RF: 0 aspirin 81 mg tablet,chewable 81 mg PO DAILY RF: 0 Referrals / Follow Up: Candelario Cam MD [STAFF PHYSICIAN] - Within 2 Weeks Care Physician,No Primary [Primary Care Provider] - In 1 Week Disposition Disposition (needs filled in before D/C Order can be placed): Home, Self Care Charges/Coding Addendum Addendum: Patient was seen and examined today, patient did not appear to understand that he was going to the rehab unit today for further inpatient rehab services. On examination he appeared his stated age, he had some mild confusion. Vital signs as documented. Skin warm and dry and without overt rashes. Neck without JV D, neck was supple, trachea midline, thyroid was normal. Lungs clear bilaterally, normal air movement was noted. Heart exam notable for regular rhythm, normal sounds and absence of murmurs, rubs or gallops. Abdomen unremarkable and without evidence of organomegaly, masses, or abdominal aortic enlargement. Bowel sounds are present, abdomen is not distended. Extremities nonedematous, no cyanosis was noted, no clubbing was noted. Neuro: Cranial nerves II through XII are grossly intact, no focal motor deficits were noted, sensation to light touch and pinprick intact, motor exam 5/5 throughout. Psych: Patient is alert, he exhibits some mild confusion, he is not agitated. Patient will be discharged to the rehab unit at [facility] for further care, I have reviewed Barbara Zuñiga's discharge summary including her medical assessment and plan of care and endorse it. Visit Charges Inpatient E&M: 58133 Disch Hosp
--- NOTE | 2021-05-05 13:49 | CASEMGMT ---
SW completed a PHQ 9 with patient as he had a Stroke. He scored a 1 which indicates minimal depression. He declines need for counseling resources. SW also spoke with patient about his discharge plan. He said he does not feel like he can go home if he is being discharged today. SW told him he is being discharged today. SW told him about [facility] 4th floor Inpatient Rehab Unit. He was in agreement with going there at d/c. He asked SW to call his and let her know. SW called patient's . Introduced self and role at [facility]. SW let her know patient does not feel like he could go home right now, but medically he is ready for discharge. He has agreed to go to [facility] 4th floor Inpatient Rehab Unit and he will go today. SW answered her questions. MICHAELA told her SW did leave a pamphlet for Inpatient Rehab in his room. She thanked SW for letting her know. She will call him before she comes in so she knows where he is located. She will bring in some clothes for him. MICHAELA notified RN of plan. Plan: [facility] 4th floor Acute Rehab Unit. Suzanne YU
--- NOTE | 2021-05-05 14:41 | NURSING ---
Report called to inpatient rehab JOSSE Ordaz.
== END 2021-05-05 14:54 | DRG 66 ==
LOC: ED 21:51 → PCU 23:20
PROVIDERS: Admitting Provider Family Medicine; Emergency Provider Emergency Medicine; Visit Provider Internal Medicine
DX: I63.212 Cerebral infarction due to unspecified occlusion or stenosis of left vertebral artery (principal); I16.0 Hypertensive urgency; H53.2 Diplopia; R29.810 Facial weakness; H53.8 Other visual disturbances; R26.0 Ataxic gait; R29.700 NIHSS score 0; R29.701 NIHSS score 1; E78.5 Hyperlipidemia, unspecified; J45.909 Unspecified asthma, uncomplicated; E66.9 Obesity, unspecified; R73.03 Prediabetes; Z68.35 Body mass index [BMI] 35.0-35.9, adult; Z79.899 Other long term (current) drug therapy; Z87.891 Personal history of nicotine dependence; Z82.0 Family history of epilepsy and other diseases of the nervous system; Z82.49 Family history of ischemic heart disease and other diseases of the circulatory system
CPT/HCPCS: 36415; 70450; 70544; 70547; 70551; 71045; 80053; 80061; 83036; 83690; 83735; 84443; 84484; 85025; 85610; 85730; 87426; 92523; 92610; 93005; 93306; 94640; 97162; 97166; 97535; 97802; 99251; 99285; J7030; A4216; G0463; J2405

== ENCOUNTER 2021-05-05 15:10 | Inpatient (IN) | payer MEDICARE, SELFPAY ==
[2021-05-05 15:17] VITALS: BP 151/103; PULSE 120; RESP 18; TEMP 36.5; O2SAT 96
[2021-05-05 15:29] VITALS: BMI 34.6
[2021-05-05 16:55] VITALS: BP 159/110; BP 164/103; BP 170/126; PULSE 115; PULSE 147; PULSE 97
[2021-05-05 17:31] VITALS: O2SAT 96
[2021-05-05] MEDS: NIFEdipine 30 MG Tablet PO (18:25)
[2021-05-05 20:07] VITALS: BP 192/135; PULSE 112; RESP 18; TEMP 37; O2SAT 97
[2021-05-05 22:00] VITALS: BP 188/111; PULSE 101; PULSE 102; RESP 16; O2SAT 97
[2021-05-05] MEDS: Lisinopril 20 MG Tablet PO (22:04)
[2021-05-05] MEDS: Senna/Docusate Sodium 1 Tablet 2 TABLET PO (22:08)
[2021-05-05] MEDS: Meclizine HCl 25 MG Tablet PO (22:09)
[2021-05-05] MEDS: Atorvastatin Calcium 80 MG Tablet PO (22:09)
[2021-05-05] MEDS: Fluticasone/Salmeterol 232-14 Inhaler 1 PUFF INHALATION (22:10)
[2021-05-05 23:45] VITALS: BP 188/119; PULSE 101; TEMP 36.8; O2SAT 96
[2021-05-06] MEDS: Tamsulosin HCl 0.4 MG Capsule PO ×2 (00:31→17:25)
[2021-05-06] MEDS: ChlorproMAZINE 25 MG Tablet PO ×2 (00:32→06:46)
[2021-05-06 00:34] LABS: Mucous, Urine 0 SEEN /hpf (<or=2+); Squamous Epithelial Cells - UA 0 SEEN /hpf (0-5); White Blood Cells 0 SEEN /hpf (0-5)
[2021-05-06] MEDS: Acetaminophen 325 MG Tablet 650 MG PO ×2 (00:34→06:49)
[2021-05-06 00:43] LABS: Color, Urine Yellow (Yellow); Glucose, Dipstick Normal (Normal); Ketone-Dipstick Negative (Negative); Leukocyte Esterase-Dipstick Negative /ul (Negative); Nitrite-Dipstick Negative (Negative); Occult Blood-Urine 150 /ul (Negative); Protein-Dipstick Negative (Negative); Urine Bilirubin Dipstick Negative (Negative); Urine Clarity Clear (Clear); Urine Urobilinogen Normal (Normal); Urine pH 6.5 (5.0 - 8.0)
[2021-05-06 00:48] VITALS: BP 143/88; PULSE 99; O2SAT 98
[2021-05-06 00:49] LABS: Bacteria RARE /hpf (None Seen); Red Blood Cells-Urine 0-5 SEEN /hpf (0-5)
[2021-05-06] MEDS: Enoxaparin 40 MG/0.4 ML Syringe SC (06:14)
[2021-05-06 06:31] VITALS: BP 100/69; BP 126/78; PULSE 120; PULSE 89
[2021-05-06 07:32] VITALS: BP 111/74; PULSE 105; RESP 18; TEMP 37.1; O2SAT 93
--- NOTE | 2021-05-06 08:36 | CASEMGMT ---
Social Work SW met w/pt, completed initial assessment. Pt is normally independent at home, used no assistive devices prior to this. Pt has hiccups and is feeling dizzy at present, RN is aware. Pt declined to complete LW/POA on this stay, declined to add any additional contacts in the computer at this time. SW let pt know that there will be a plan of care meeting, and at that time length of stay will be discussed, will be able to participate in this meeting as well. Pt states understanding. PHQ-9 completed w/pt, pt scored a 1, symptom reported(feeling tired or having little energy) pt states started since he had the stroke. Pt plans to return home at discharge, he is open to home health is needed. Pt also may need some DME at discharge. SW will continue to follow for discharge needs and any social service needs that arise while pt is in rehab. FILIBERTO Velez
--- NOTE | 2021-05-06 09:32 | HP.PCM_ITS ---
[facility] - General General Date of Admission: 05/05/21 HPI Narrative LINO DRAKE, is a 66 YO M with a PMH of obesity, asthma, allergic rhinitis, tobacco dependence in remission and skin cancers who presented to the emergency department at [facility] on 05/03/2021 complaining of awakening that morning feeling lightheaded and experiencing occipital cephalgia. The symptoms got progressively worse throughout the day and after dinner he had emesis and so he came to the emergency department. Stat CT brain was normal. Chest x-ray was unremarkable. MRI of the brain done on 05/04/2021 showed a 1 cm area of restricted diffusion involving the left paramedian medulla consistent with acute infarction. MRA showed left distal vertebral artery occlusion. Transthoracic echocardiogram showed mild concentric left ventricular hypertrophy with normal left ventricular systolic function. There was stage I diastolic dysfunction present and there were no regional wall motion abnormalities. Bubble contrast study was negative for a right to left interatrial shunt. No significant valvular heart disease. He went on to develop additional sx including diplopia, weakness on the ipsilateral side, a feeling that he was falling to the left and hiccups. He was started on ASA, Plavix and a statin at admission to the hospital and consult with SOC was obtained. Significant lab included a HGBA1C of 5.9%, total cholesterol of 261, LDL of 195, normal TRIG and a HDL of 51. LFTs are within normal limits. He was seen by PT/OT/ST and acute rehab was recommended. He was transferred to the acute inpt rehab unit at [facility] on 05/05/21 for 3 hours of therapy daily to restore function at or near his prior level of function/independence. BP was very uncontrolled at presentation to the rehab unit and he was tachycardic. At 1 point the blood pressure was 188/119 and the heart rate was 101. The heart rate has been as high as 120.He was treated with an antihypertensive but, the BP remained elevated. He told the nurse last night jacob he was unable to urinate and he had 700 cc PVR. He admits to having a feeling that he does not completely empty his bladder at times and he goes more frequently than he used to. The UA last night was unremarkable. [facility] Medical History Allergic rhinitis Asthma Former tobacco use Obesity Home Medications albuterol sulfate [Ventolin HFA] 2 puff INHALATION Q6H PRN PRN 10/28/14 [History Last Taken Unknown] fluticasone propion-salmeterol [Advair Diskus] 1 puff INHALATION BID 10/28/14 [History Last Taken 10/31/14 09:00] aspirin 81 mg PO DAILY 05/05/21 [History Last Taken Unknown] atorvastatin 80 mg PO QHS 05/05/21 [History Last Taken Unknown] chlorpromazine [Thorazine] 25 mg PO Q4H PRN 05/05/21 [History Last Taken Unknown] clopidogrel 75 mg PO DAILY 05/05/21 [History Last Taken Unknown] meclizine [Antivert] 25 mg PO BID 05/05/21 [History Last Taken Unknown] Allergy/AdvReac Type Severity Reaction Status Date / Time latex Allergy Rash Verified 05/03/21 18:33 Family History Mother HLD (hyperlipidemia) Hypertension Heart disease CVA (cerebral vascular accident) Father HLD (hyperlipidemia) Hypertension Heart disease CVA (cerebral vascular accident) Surgical History H/O inguinal hernia repair H/O ventral hernia repair Social History household members: spouse Smoking Status: Former smoker alcohol intake: never substance use type: does not use ROS Constitutional Constitutional: Reports weakness; Denies anorexia, change in weight, chills, fatigue, fever(s) or night sweats Eyes Eyes: Reports change in vision and other Details: has not seen his eye doctor in a while ; Denies eye pain or loss of vision ENT HEENT: Denies abnormal hearing, dysphagia, headache(s), hearing loss, nasal congestion or sore throat Cardiovascular Cardiovascular: Reports edema; Denies chest pain, dyspnea on exertion, lighth eadedness, orthopnea, palpitations, paroxysmal nocturnal dyspnea or syncope Respiratory/Chest Respiratory/Chest: Denies cough, dyspnea, shortness of breath at rest, shortness of breath with exertion or wheezing Gastrointestinal Gastrointestinal: Reports dyspepsia and other Details: He c/o reflux and epigastric discomfort ; Denies abdominal pain, constipation, diarrhea, hematemesis, hematochezia, nausea or vomiting Genitourinary Genitourinary: Reports other Details: having urine retention since the stroke ....prior to the stroke he admits to urinating more than he used to but no nocturia and no dribbling ; Denies dysuria, hematuria, nocturia, urinary frequency, urinary hesitancy, urinary incontinence or urinary urgency Musculoskeletal Musculoskeletal: Denies back pain, joint pain, joint swelling or neck pain Integumentary Integumentary: Denies jaundice, rash or wounds Neurologic Neurologic: Reports abnormal gait, dizziness, focal weakness and other Details: he feels weak on the left side but, strength is 5/5. ; Denies confusion, disequilibrium, headache(s), numbness, paresthesias, seizures or tremor(s) Psychiatric Psychiatric: Denies anxiety, depression, homicidal ideation or suicidal ideation Endocrine Endocrinology: Denies change in body appearance, polydipsia or polyuria Hematologic/Lymphatic Hematologic/Lymphatic: Denies easy bleeding, easy bruising or lymphadenopathy Allergic/Immunologic Allergic/Immunologic: Denies rhinitis, eczemia or asthma Vital Signs Vital Signs Vital Signs: 05/05/21 15:17 05/05/21 16:55 05/05/21 17:08 Temperature 97.7 F L Temperature Source Oral Pulse Rate 120 H Pulse Rate [Lying] 97 Pulse Rate [Sitting] 115 H Pulse Rate [Standing] 147 H Pulse Strength Respiratory Rate 18 Respiratory Effort Normal Non-Labored Respiratory Depth Normal Respiratory Pattern Normal Blood Pressure 151/103 H Blood Pressure [Lying] 164/103 H Blood Pressure [Sitting] 159/110 H Blood Pressure [Standing] 170/126 H Blood Pressure Mean 119 Blood Pressure Mean [Lying] 123 Blood Pressure Mean [Sitting] 126 Blood Pressure Mean [Standing] 140 Blood Pressure Source Monitor Blood Pressure Position Sitting Blood Pressure Location Right Arm Pulse Ox 96 Oxygen Delivery Method Room Air Room Air 05/05/21 17:31 05/05/21 20:07 05/05/21 22:00 Temperature 98.6 F Temperature Source Oral Pulse Rate 112 H 102 H Pulse Rate [Lying] Pulse Rate [Sitting] Pulse Rate [Standing] Pulse Strength Normal (2+) Respiratory Rate 18 16 Respiratory Effort Normal Respiratory Depth Normal Respiratory Pattern Normal Blood Pressure 192/135 H 188/111 H Blood Pressure [Lying] Blood Pressure [Sitting] Blood Pressure [Standing] Blood Pressure Mean 154 136 Blood Pressure Mean [Lying] Blood Pressure Mean [Sitting] Blood Pressure Mean [Standing] Blood Pressure Source Monitor Monitor Blood Pressure Position Sitting Semi-Fowlers Blood Pressure Location Right Arm Right Arm Pulse Ox 96 97 97 Oxygen Delivery Method Room Air Room Air Room Air 05/05/21 23:45 05/06/21 00:48 05/06/21 06:31 Temperature 98.3 F Temperature Source Oral Pulse Rate 101 H 99 Pulse Rate [Lying] 89 Pulse Rate [Sitting] 120 H Pulse Rate [Standing] Pulse Strength Respiratory Rate Respiratory Effort Respiratory Depth Respiratory Pattern Blood Pressure 188/119 H 143/88 H Blood Pressure [Lying] 126/78 H Blood Pressure [Sitting] 100/69 Blood Pressure [Standing] Blood Pressure Mean 142 106 Blood Pressure Mean [Lying] 94 Blood Pressure Mean [Sitting] 79 Blood Pressure Mean [Standing] Blood Pressure Source Monitor Monitor Blood Pressure Position Semi-Fowlers Semi-Fowlers Blood Pressure Location Right Arm Right Arm Pulse Ox 96 98 Oxygen Delivery Method Room Air Room Air 05/06/21 07:32 Temperature 98.7 F Temperature Source Oral Pulse Rate 105 H Pulse Rate [Lying] Pulse Rate [Sitting] Pulse Rate [Standing] Pulse Strength Respiratory Rate 18 Respiratory Effort Respiratory Depth Respiratory Pattern Blood Pressure 111/74 Blood Pressure [Lying] Blood Pressure [Sitting] Blood Pressure [Standing] Blood Pressure Mean 86 Blood Pressure Mean [Lying] Blood Pressure Mean [Sitting] Blood Pressure Mean [Standing] Blood Pressure Source Monitor Blood Pressure Position Sitting Blood Pressure Location Left Arm Pulse Ox 93 Oxygen Delivery Method Room Air Weight Weight: 262 lb 9.129 oz Body Mass Index (BMI) 34.6 Indicators for Scoring Admitted with or Primary Diagnosis of CVA/Stroke: Yes Hx of CVA/Stroke: Yes Modified Kiran Score MRS Score at time of Evaluation: 4-Moderate/severe disability NIHSS NIHSS 1a. Level of Consciousness: Alert; keenly responsive 1b. LOC Questions: Answers BOTH questions correctly. 1c. LOC Commands: Performs both tasks correctly. 2. Best Gaze: Normal 3. Visual: No visual loss 4. Facial Palsy: Minor paralysis (flattened nasolabial fold, asymmetry on smiling) 5a. Left Arm: No drift; arm holds 90 (or 45) degrees for full 10 seconds 5b. Right Arm: No drift; arm holds 90 (or 45) degrees for full 10 seconds 6a. Left Leg: No drift; leg holds 30-degree position for full 5 seconds 6b. Right Leg: No drift; leg holds 30-degree position for full 5 seconds 7. Limb Ataxia: Absent 8. Sensory: Normal; no sensory loss 9. Best Language: No aphasia; normal 10. Dysarthria: Normal 11. Extinction and Inattention: Visual, tactile, auditory, spatial, or personal inattention Total: 2 Stroke Questions Stroke Team Activated: No Physical Exam Const alert and oriented x3 Constitutional Narrative: Looks ill. He is very lightheaded. He has hiccups and has not been sleeping due to constant hiccups for 3 days. General Appearance: cooperative HEENT normocephalic, head/scalp atraumatic and hearing grossly normal bilaterally Eyes PERRL, EOMs intact bilaterally, conjunctivae normal and no scleral icterus Eyes Narrative: no nystagmus Neck no lymphadenopathy, supple, No nodes and no carotid bruits General: trachea midline Resp normal respiratory effort, normal air movement and clear to auscultation bilaterally Effort and Inspection: able to speak in complete sentences and symmetric chest movement Cardio regular rhythm, S1 normal heart sound, S2 normal heart sound, no murmurs, no rub and no gallops Rate: tachycardic GI normal to inspection, nondistended, normoactive bowel sounds, soft to palpation and non-tender Back/Spine Back/Spine Narrative: occasional low back pain - relieved with PRN Motrin. No spasm or deformity. NT at the present time in the LS spine area. Extremity no calf tenderness General Extremity: edema bilateral (usually it is the RLE that swells at the end of the day and it resolves with elevation. He has a hx of trauma to the distal RLE and it has swelled ever since the wound healed. No hx of VTE) Skin General Skin Exam: no breakdown Rashes: no rashes Neuro oriented x3, moves all extremities, no focal motor deficits, no sensory deficits noted and No gait normal Neuro Narrative: see the NIHSS scoring. He leans to the left when standing and ambulating. Has some neglect of the left side ...spatial Psych mental status grossly normal, thought process normal, cooperative, affect normal, activity/motor behavior normal, denies hallucinations, denies homicidal ideation and denies suicidal ideation Results Lab / Micro Data Result Diagrams: 05/07/21 05:33 05/07/21 05:33 Labs: Laboratory Results - last 24 hr 05/06/21 00:00: Urine Color Yellow, Urine Clarity Clear, Urine pH 6.5, Ur Specific [place] 1.010, Urine Protein Negative, Urine Glucose (UA) Normal, Urine Ketones Negative, Urine Occult Blood 150 H, Urine Nitrite Negative, Urine Bilirubin Negative, Urine Urobilinogen Normal, Ur Leukocyte Esterase Negative, Urine RBC 0-5 SEEN, Urine WBC 0 SEEN, Ur Squamous Epith Cells 0 SEEN, Urine Bacteria RARE, Urine Mucus 0 SEEN Assessment & Plan Assessment/Plan (1) Physical debility: (2) Occlusion of left vertebral artery: (3) CVA (cerebral vascular accident): (4) Intractable singultus: (5) Diplopia: (6) Ataxia: (7) Hypertensive urgency: (8) HLD (hyperlipidemia): (9) LVH (left ventricular hypertrophy): (10) Grade I diastolic dysfunction: (11) Tachycardia: (12) Urine retention: PLAN: PLAN PT for gait stability OT for ADL's ST for evaluation Analgesics as needed Bowel protocol Fall precautions Assess for Anxiety/Depression GI prophylaxis not necessary at this time. The hiccups are due to the CVA and not due to GERD or PUD. DVT prophylaxis with enoxaparin 40 mg subcu daily Follow up with PCP and neurology following DC from IP Rehab DC the Thorazine and start Gabapentin 100 mg TID and Baclofen 5 mg TID. After we get the hiccups under control may be able to DC one of these meds as we adjust the dosing of the other. DC the Antivert.......no nystagmus and no vertigo. The lightheadedness is likely due to autonomic dysfunction Be very cautious with antihypertensives.........PRN meds only if the BP is > 180/ 105 for now. Villasenor was inserted for urine retention which is likely due to BPH + autonomic dysfunction due to the CVA Lisinopril 10 mg BID - hold if the BP is < 140/90 BMP in the AM Orthostatic VS's Q AM X 3. overnight trending pulse ox Ask if he has had COVID vaccination and if not offer to give it here Also ask about the flu vaccine. Charges/Coding Visit Charges Inpatient E&M: 44463 Init Hosp L3
[2021-05-06] MEDS: 0.9% Saline Lock 10 ML Syringe IV (09:47)
[2021-05-06] MEDS: 0.9% Normal Saline 1,000 ML 150 ML IV (09:47)
[2021-05-06] MEDS: Meclizine HCl 25 MG Tablet PO (10:19)
[2021-05-06] MEDS: Clopidogrel Bisulfate 75 MG Tablet PO (10:19)
[2021-05-06] MEDS: Fluticasone/Salmeterol 232-14 Inhaler 1 PUFF INHALATION ×2 (10:19→22:25)
[2021-05-06] MEDS: Aspirin 81 MG TAB.CHEW PO (10:19)
--- NOTE | 2021-05-06 11:17 | REHABEVAL_ITS ---
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 and Stroke patients assessed for lethargy or change in status. Infection: Clinical Staff to Monitor for S/S of infection: and S/S of infection include fever, redness, warmth, etc. Urinary Tract Infection: Monitor for frequency, burning, discomfort, or incontinence. and Nursing will obtain urine sample for urinalysis and C&S when ordered. Aspiration: Clinical staff will monitor for coughing, drooling, congestion., Speech will evaluate swallowing and dsyphasia. and Nursing will monitor patient swallowing during meals. Falls: Patient will be evaluated for Fall Precautions and Patient will be placed on Fall Precautions as indicated per protocol. Skin Breakdown: Nursing will assess skin daily using assessment tool. and Nursing will place on Skin Breakdown Precautions as indicated. Pain: Clinical staff will assess patient's pain level per protocol., Medications will be given, if needed, and the pain level reassessed. and Other methods: Massage, distraction, decrease stimulus, etc. used PRN. Plan of Care Patient requires physician specializing in physical medicine and rehab oversight to provide close medical supervision of rehab issues including: Pain Management, Sleep Problems, Bowel and Bladder, Medical and co-morbidity Management, DVT prophylaxis, Rehabilitation Leadership and Coordination of treatment team Patient needs Physical Therapy: For a minimum of 1 hour and At least 5 out of 7 days Patient needs Physical Therapy to improve:: Mobility, Strengthening, Transfers, Stretching, ROM, Endurance, Stairs, Gait and Balance Patient needs Occupational Therapy: For a minimum of 1 hour and At least 5 out of 7 days Patient needs Occupational Therapy to improve ADL's incl.: Eating, Grooming, Bathing, Dressing, Toileting, Toilet transfers, Community Reintegration, Higher functioning activities, Household tasks, Adaptive Equipment, Splinting and Other activities as determined Patient requires speech therapy: For a minimum of 1 hour and At least 5 out of 7 days Patient requires speech therapy for: Swallowing, Cognition, Language Skills and Compensatory Strategies Patient requires 24/7 Rehabilitation Nursing for: Pain Issues, Identifying and preventing risk factors, Monitoring and reporting current medical conditions, Assisting with ambulation, transfer, and all ADL's, Teaching patients about disease process and medications, Family teaching, Providing safe environment, Bowel and Bladder Issues, Skin integrity and Medication Management Patient needs Orthotics Prosthetics Technician/ Case Management for: Discharge Planning, Arranging Home Equipment or Services and Family Interventions Patient needs Dietary and Nutrition Services for: Adequate Nutrition, Nutritional Supplements and Nutritional Education Goals Patient will remain: free from falls and or injury at time of discharge. Patient will perform bed mobility at: MOD I level of assist. Patient will complete transfers from bed to chair at: MOD I level of assist. Patient will ambulate: - (500 feet independently on various surfaces) Patient will complete upper body dressing at: MOD I level of assist. Patient will complete lower body dressing at: MOD I level of assist. Patient will complete toileting at: MOD I level of assist. Patient will perform bathing at: MOD I level of assist. Patient will complete grooming at: MOD I level of assist. Patient will complete home management skills at: MOD I level of assist. Patient will achieve: - (2 curb step and 6 regular steps ) Patient will have pain level of: of 3 or less Patient's skin will: remain intact Patient will receive: adequate nutrition. Discharge Planning Pt Prognosis for Sig. Practical Improv. w/in Reasonable Time: Good Estimated Length of stay (days): 14 Anticipated D/C Destination: Home with Outpt Therapy Was Preadmission Assessment Accurate?: Yes
[2021-05-06] MEDS: Gabapentin 100 MG Capsule PO ×2 (11:19→17:25)
[2021-05-06 13:07] VITALS: BMI 34.6
[2021-05-06] MEDS: Baclofen 10 MG Tablet 5 MG PO ×2 (14:00→22:24)
[2021-05-06 21:35] VITALS: PULSE 75; O2SAT 97
[2021-05-06 22:15] VITALS: BP 131/68; PULSE 82; RESP 16; TEMP 37.3; O2SAT 95; BMI 34.6
[2021-05-06] MEDS: Lisinopril 10 MG Tablet PO (22:24)
[2021-05-06] MEDS: Atorvastatin Calcium 80 MG Tablet PO (22:24)
--- NOTE | 2021-05-07 03:00 | NURSING ---
Reviewed and agree with CORDAGE SALES REPRESENTATIVE assessment.
[2021-05-07 06:00] VITALS: BP 121/86; BP 126/83; BP 139/96; PULSE 103; PULSE 116; PULSE 91
[2021-05-07 06:31] LABS: Anion Gap 7 (5-15); BUN 16 mg/dL (7-18); BUN/Creat Ratio 17.8 RATIO (10-20); Chloride 106 mmol/L (98-107); EST Glomerular Filtration Rate 90 mL/min (>60); Est Glom Filt Rate - Afr Amer 109 mL/min (>60); Estimated Creatinine Clearance 92.48 ml/min; Glucose 106 mg/dL (74-106); Potassium 3.5 mmol/L (3.5-5.1); Sodium Level 139 mmol/L (136-145)
[2021-05-07] MEDS: Enoxaparin 40 MG/0.4 ML Syringe SC (06:33)
[2021-05-07] MEDS: Baclofen 10 MG Tablet 5 MG PO ×3 (06:34→20:56)
[2021-05-07 07:56] VITALS: PULSE 91; RESP 18; O2SAT 97
[2021-05-07] MEDS: Acetaminophen 325 MG Tablet 650 MG PO ×2 (09:08→17:22)
[2021-05-07] MEDS: Gabapentin 100 MG Capsule PO (09:09)
[2021-05-07] MEDS: Lisinopril 10 MG Tablet PO ×2 (09:09→20:56)
[2021-05-07] MEDS: Aspirin 81 MG TAB.CHEW PO (09:09)
[2021-05-07] MEDS: Clopidogrel Bisulfate 75 MG Tablet PO (09:09)
[2021-05-07] MEDS: Fluticasone/Salmeterol 232-14 Inhaler 1 PUFF INHALATION ×2 (09:10→20:52)
[2021-05-07] MEDS: Senna/Docusate Sodium 1 Tablet 2 TABLET PO (09:10)
--- NOTE | 2021-05-07 09:54 | PCM.PN.BLA ---
Progress Note Afebrile VSS Maintaining appropriate oxygen saturation on RA Oral intake is good. Discussed with nursing - no problems that need addressed Reviewed the PT/OT/ST notes Medication list reviewed. All labs personally reviewed. Calcium is 8 today. Will check a Vitamin D level. Still with hiccups but, better than yesterday. Did not sleep well again last night due to hiccups. Lightheadedness is much better and he was sitting up in a chair doing OT when I entered his room. He is c/o some reflux now with the hiccups. He has had reflux in the past. He has a high caffeine consumption and eats prior to lying down at night. Has gained 20 pounds since retiring. He also has some upper abd soreness. Not feeling drowsy with the Gabapentin 100 mg TID. The diplopia is getting somewhat better. The double vision is worse at night when he is tired. His is bringing him in an eye patch. Denies calf pain, chest pain, shortness of breath, nausea/vomiting. Physical Exam Const alert, oriented x3 and no apparent distress Constitutional Narrative: sitting in the chair when I entered the room and denied lightheadedness. He rarely hiccupped today while I was talking to him UNTIL he took a drink of cold water and then he had a flurry of hiccups General Appearance: cooperative, comfortable and well kempt Eyes PERRL and EOMs intact bilaterally Eyes Narrative: No nystagmus Resp Resp Narrative: rare wheeze and the BS's are a little diminished today. He had wet BS's and a cough when the ST was seeing him Effort and Inspection: able to speak in complete sentences; Negative for tachypneic or respiratory distress Cardio regular rate, regular rhythm, S1 normal heart sound, S2 normal heart sound and no gallops GI GI Narrative: He has pain in the Left upper abd under the ribs that gets worse with hiccups. Inspection: Negative for abdominal aortic bruit Extremity no calf tenderness Extremity Narrative: the edema in the RLE is controlled with the TINA hose and he states they feel good on Skin General Skin Exam: no breakdown Rashes: no rashes Neuro Neuro Narrative: facial droop is barely noticeable today Psych affect normal Assessment & Plan Assessment/Plan (1) CVA (cerebral vascular accident): (2) Stroke, Wallenberg's syndrome: (3) Physical debility: (4) Urine retention: (5) Diplopia: (6) Intractable singultus: (7) Ataxia: (8) GERD (gastroesophageal reflux disease): PLAN: 1. Start Protonix 40 mg daily. I explained how caffeine and eating prior to lying down at night increase reflux. I also recommended some wt loss. 2. Increase the Gabapentin to 300 mg TID 3. Spent 30 minutes discussing the risk factors for stroke, treatment of ischemic strokes and how to prevent a second stroke. 4. Continue therapy 5. Check the BP every 4 hours while awake for the next 48 hours....continue with orthostatic in the AM 6. patch one eye to get rid of the diplopia - alternate eyes daily 7. call RT and get the results of the overnight trending pulse ox Visit Charges Inpatient E&M: 21495 Subs Hosp L2
[2021-05-07 12:01] LABS: Vitamin D,25 Hydroxy 21.3 ng/mL
[2021-05-07] MEDS: Pantoprazole Sodium 40 MG Tablet PO (12:20)
[2021-05-07] MEDS: Gabapentin 300 MG Capsule PO ×2 (12:21→16:54)
[2021-05-07 14:59] VITALS: BMI 34.6
[2021-05-07] MEDS: Tamsulosin HCl 0.4 MG Capsule PO (16:54)
[2021-05-07 19:32] VITALS: BP 168/92; PULSE 64; RESP 18; TEMP 37.3; O2SAT 98
[2021-05-07 20:38] VITALS: BP 128/80; PULSE 89
[2021-05-07] MEDS: 0.9% Saline Lock 10 ML Syringe IV (20:40)
[2021-05-07] MEDS: Atorvastatin Calcium 80 MG Tablet PO (20:56)
[2021-05-08 01:16] VITALS: BMI 34.6
[2021-05-08 05:41] VITALS: BP 109/87; BP 151/79; BP 155/81; PULSE 113; PULSE 78; PULSE 85
[2021-05-08 05:46] VITALS: BP 109/87; BP 151/79; BP 155/81; PULSE 113; PULSE 78; PULSE 85
[2021-05-08] MEDS: Enoxaparin 40 MG/0.4 ML Syringe SC (05:48)
[2021-05-08] MEDS: Baclofen 10 MG Tablet 5 MG PO ×3 (05:48→21:26)
[2021-05-08] MEDS: Acetaminophen 325 MG Tablet 650 MG PO ×3 (05:49→23:07)
[2021-05-08] MEDS: 0.9% Saline Lock 10 ML Syringe IV (05:50)
--- NOTE | 2021-05-08 06:46 | NURSING ---
REVIEWED AND AGREE WITH HOT PUNCH PRESS OPERATOR'S FUNCTIONAL ASSESSMENT AND HANDOFF CHARTING.
[2021-05-08 08:31] VITALS: BP 133/77; PULSE 78; RESP 20; TEMP 37.3; O2SAT 95
[2021-05-08] MEDS: Pantoprazole Sodium 40 MG Tablet PO (08:51)
[2021-05-08] MEDS: Clopidogrel Bisulfate 75 MG Tablet PO (08:51)
[2021-05-08] MEDS: Gabapentin 300 MG Capsule PO ×3 (08:51→17:01)
[2021-05-08] MEDS: Aspirin 81 MG TAB.CHEW PO (08:51)
[2021-05-08] MEDS: Lisinopril 10 MG Tablet PO (08:51)
[2021-05-08] MEDS: Fluticasone/Salmeterol 232-14 Inhaler 1 PUFF INHALATION ×2 (08:52→21:21)
[2021-05-08] MEDS: Senna/Docusate Sodium 1 Tablet 2 TABLET PO (08:52)
--- NOTE | 2021-05-08 10:00 | NURSING ---
Refused laxative when this nurse offfered. Patient reported he has no discomfort and he has not been eating much which is why he is constipated. Patient is passing flatus.
--- NOTE | 2021-05-08 15:23 | PCM.PN.BLA ---
Progress Note Afebrile VSS-he is orthostatic today and is c/o lightheadedness. Maintaining appropriate oxygen saturation on RA Oral intake is good Discussed with nursing - no problems that need addressed Reviewed the PT/OT/ST notes Medication list reviewed. He slept well last night. diplopia is making him more dizzy today. His was not able to bring a patch in last night so the OT made one this morning. Hiccups are improving. Denies chest pain, shortness of breath, cough, nausea/vomiting. The discomfort in the upper abdomen in the midepigastric region has improved and he denies reflux today. He is vitamin D deficient. Physical Exam Const alert and oriented x3 Constitutional Narrative: Still with diplopia, waxes ad wanes - gets worse when he is tired. No nystagmus. Resp normal respiratory effort, normal air movement and clear to auscultation bilaterally Effort and Inspection: able to speak in complete sentences Cardio regular rate, regular rhythm, S1 normal heart sound, S2 normal heart sound, no murmurs and no gallops Cardio Narrative: occasional ectopic beat GI normal to inspection, nondistended, normoactive bowel sounds, soft to palpation and non-tender Extremity no calf tenderness Skin Rashes: no rashes Assessment & Plan Assessment/Plan (1) Physical debility: (2) Occlusion of left vertebral artery: (3) CVA (cerebral vascular accident): (4) Stroke, Wallenberg's syndrome: (5) Dysautonomia: (6) Urine retention: (7) Orthostatic hypotension: (8) Diplopia: (9) Intractable singultus: PLAN: DC the Lisinopril and continue with PRN medication only. Labetalol 100 mg Q 6H PRN sys>170 or DIAST>100. Continue the orthostatic VS's once a day Patch one eye when the diplopia is bad and bothering him. Continue the Gabapentin 300 mg TID and the Baclofen 5 mg TID for hiccups. Continue therapy Has been on Flomax for a few days......will try and DC the Villasenor on Tuesday. Visit Charges Inpatient E&M: 65033 Subs Hosp L2
[2021-05-08 15:35] VITALS: BMI 34.6
[2021-05-08] MEDS: Tamsulosin HCl 0.4 MG Capsule PO (17:01)
[2021-05-08 20:05] VITALS: BP 145/86; PULSE 81; RESP 14; TEMP 36.7; O2SAT 96
[2021-05-08] MEDS: Atorvastatin Calcium 80 MG Tablet PO (21:27)
--- NOTE | 2021-05-09 02:34 | NURSING ---
Reviewed and agree with DICTAPHONE MECHANIC assessment.
[2021-05-09] MEDS: Acetaminophen 325 MG Tablet 650 MG PO ×2 (05:39→21:35)
[2021-05-09] MEDS: Enoxaparin 40 MG/0.4 ML Syringe SC (05:39)
[2021-05-09] MEDS: Baclofen 10 MG Tablet 5 MG PO ×3 (05:39→20:51)
[2021-05-09 06:00] VITALS: BP 125/83; BP 143/91; BP 158/80; PULSE 101; PULSE 71; PULSE 72
[2021-05-09 08:22] VITALS: BP 150/78; PULSE 72; RESP 16; TEMP 36.9; O2SAT 96
[2021-05-09] MEDS: Fluticasone/Salmeterol 232-14 Inhaler 1 PUFF INHALATION ×2 (09:18→20:50)
[2021-05-09] MEDS: Pantoprazole Sodium 40 MG Tablet PO (09:19)
[2021-05-09] MEDS: Gabapentin 300 MG Capsule PO ×3 (09:19→16:52)
[2021-05-09] MEDS: Senna/Docusate Sodium 1 Tablet 2 TABLET PO (09:20)
[2021-05-09] MEDS: Aspirin 81 MG TAB.CHEW PO (09:20)
[2021-05-09] MEDS: Clopidogrel Bisulfate 75 MG Tablet PO (09:21)
[2021-05-09] MEDS: Tamsulosin HCl 0.4 MG Capsule PO (16:52)
[2021-05-09 17:00] VITALS: BMI 34.6
[2021-05-09] MEDS: Atorvastatin Calcium 80 MG Tablet PO (20:52)
[2021-05-09 20:55] VITALS: BP 145/80; PULSE 70; RESP 16; TEMP 37.1
[2021-05-10 00:11] VITALS: BMI 34.6
[2021-05-10] MEDS: Baclofen 10 MG Tablet 5 MG PO ×3 (05:48→20:03)
[2021-05-10] MEDS: Enoxaparin 40 MG/0.4 ML Syringe SC (05:48)
[2021-05-10] MEDS: Acetaminophen 325 MG Tablet 650 MG PO ×2 (05:54→20:02)
[2021-05-10 07:08] VITALS: BP 148/74; PULSE 79; RESP 18; TEMP 37.1; O2SAT 96
[2021-05-10 07:15] VITALS: BP 132/76; BP 140/80; BP 148/74; PULSE 79; PULSE 82; PULSE 90
[2021-05-10] MEDS: Fluticasone/Salmeterol 232-14 Inhaler 1 PUFF INHALATION ×2 (09:50→20:05)
[2021-05-10] MEDS: Gabapentin 300 MG Capsule PO ×3 (09:51→16:38)
[2021-05-10] MEDS: Clopidogrel Bisulfate 75 MG Tablet PO (09:51)
[2021-05-10] MEDS: Pantoprazole Sodium 40 MG Tablet PO (09:51)
[2021-05-10] MEDS: Aspirin 81 MG TAB.CHEW PO (09:52)
[2021-05-10] MEDS: Senna/Docusate Sodium 1 Tablet 2 TABLET PO ×2 (09:52→20:03)
[2021-05-10 10:21] VITALS: BMI 34.6
[2021-05-10] MEDS: Tamsulosin HCl 0.4 MG Capsule PO (16:40)
[2021-05-10 19:44] VITALS: BP 144/90; PULSE 86; RESP 18; TEMP 36.8; O2SAT 96
[2021-05-10] MEDS: Atorvastatin Calcium 80 MG Tablet PO (20:03)
--- NOTE | 2021-05-11 05:50 | NURSING ---
Pt c/o generalized headache this am at 8/10. Tylenol given per dr order along w/ scheduled Baclofen. Requests ice pack for headache. Has hiccups. In no acute distress. Will continue to monitor.
[2021-05-11] MEDS: Acetaminophen 325 MG Tablet 650 MG PO ×3 (05:51→18:20)
[2021-05-11] MEDS: Baclofen 10 MG Tablet 5 MG PO ×2 (05:51→13:10)
[2021-05-11] MEDS: Enoxaparin 40 MG/0.4 ML Syringe SC (05:54)
[2021-05-11 07:36] VITALS: BP 156/87; PULSE 73; RESP 16; TEMP 36.7; O2SAT 93
[2021-05-11] MEDS: Fluticasone/Salmeterol 232-14 Inhaler 1 PUFF INHALATION (07:48)
[2021-05-11] MEDS: Aspirin 81 MG TAB.CHEW PO (07:49)
[2021-05-11] MEDS: Pantoprazole Sodium 40 MG Tablet PO (07:49)
[2021-05-11] MEDS: Senna/Docusate Sodium 1 Tablet 2 TABLET PO (07:49)
[2021-05-11] MEDS: Clopidogrel Bisulfate 75 MG Tablet PO (07:49)
[2021-05-11] MEDS: Gabapentin 300 MG Capsule PO ×3 (07:49→17:22)
--- NOTE | 2021-05-11 11:47 | PCM.PN.BLA ---
Progress Note Nahid was seen on TEAM rounds today. His was present in the room for rounds. Afebrile VSS-systolic blood pressures are all mildly above goal but diastolics are for the most part within goal. Heart rate is in the 70s and 80s. Still mildly orthostatic yesterday with the systolic blood pressure going from 148 lying down to 132 standing up. He is not on a diuretic. Maintaining appropriate oxygen saturation on RA Oral intake is good but he is diuresing and outputs have been >> input past few days. The urine in the Villasenor bag is pink tinged today but clear. Last bowel movement was 05/09/2021. Discussed with nursing - no problems that need addressed. He told the night nurse he would prefer not to be on fluticasone. Reviewed the PT/OT/ST notes. St is going to discharge him today. He has refused any evaluation for cognition. Swallowing is worse when he has the hiccups. He ambulated much better with OT today and walked back to his room from the therapy room. Medication list reviewed. He is still having hiccups at times. They get worse with very hot or very cold beverages and when he is having increased anxiety. He is sleeping better at night. He is having some FAGAN due to caffeine withdrawal but they are starting to lessen. He continues to have heartburn at times but better since the addition of the Protonix to the drug regimen. No abd pain today. Also denies CP, N/V, palpitations, calf pain, cough. He told me today that his BM's are very dark now and this is new. Hemoccult was ordered. He is currently on aspirin, Plavix and prophylactic dose of enoxaparin. He denied any history of peptic ulcer disease. He has had some epigastric pain since arriving in rehab and also heartburn. Physical Exam Const alert, oriented x3 and no apparent distress Constitutional Narrative: Was no having hiccups when we first entered the room but, once the therapists started to present and his started to ask questions he starting hiccuping much more. As he and I got talking he calmed down and the hiccups went away again. He is very invested in following up with a PCP and maintaining good health to prevent any additional strokes. General Appearance: cooperative, comfortable, well kempt and anxious HEENT HEENT Narrative: MM are dry Eyes conjunctivae normal and no scleral icterus Eyes Narrative: No nystagmus except when he looks quickly to the left side. Resp normal respiratory effort, normal air movement and clear to auscultation bilaterally Effort and Inspection: able to speak in complete sentences Cardio regular rate, regular rhythm and no gallops GI soft to palpation and non-tender; Negative for hepatosplenomegaly or no masses GI Narrative: No guarding with palpation. BS's are not hyperactive. Extremity no calf tenderness Skin General Skin Exam: no breakdown Rashes: no rashes Assessment & Plan Assessment/Plan (1) Ataxia: (2) Physical debility: (3) Occlusion of left vertebral artery: (4) CVA (cerebral vascular accident): QUALIFIERS: CVA mechanism: unspecified Qualified Code(s): I63.9 - Cerebral infarction, unspecified (5) Stroke, Wallenberg's syndrome: (6) Dysautonomia: (7) Orthostatic hypotension: (8) Urine retention: (9) Diplopia: (10) Tachycardia: (11) Intractable singultus: (12) GERD (gastroesophageal reflux disease): QUALIFIERS: Esophagitis presence: esophagitis presence not specified Qualified Code(s): K21.9 - Gastro-esophageal reflux disease without esophagitis (13) Anxiety about health: (14) HTN (hypertension): QUALIFIERS: Hypertension type: primary hypertension Qualified Code(s): I10 - Essential (primary) hypertension (15) Polyuria: PLAN: 1. No change in the antihypertensives for now since he is still has symptomatic orthostasis. 2. check a CBC in the AM and also a BMP and a mag 3. daily weight for the next week. 4. Increase the Gabapentin to 400 mg TID 5. Start Buspar 5 mg BID 6. DC the Baclofen 7. Check a Hemoccult stool 8. Continue aspirin, Plavix and Lovenox for now 9. Continue Protonix Visit Charges Inpatient E&M: 05550 Subs Hosp L2
[2021-05-11 12:56] VITALS: BMI 34.6
--- NOTE | 2021-05-11 15:21 | CASEMGMT ---
Social Work IDT met with patient and for Team meeting. Discussed patient's progress in therapy and nursing. Pt is not active with PCP - provided resources for pt to f/u at [facility]. Pt requesting [facility] at [facility]. Pt to return home with at [facility]. Explained Medicare approved 18 days with [facility] 05/24. Will ReTeam. Will continue to follow. Lindsey Park, MEDICINE AIDE OPHTHALMIC MEDICAL TECHNICIAN
--- NOTE | 2021-05-11 16:54 | CHAPLAIN ---
Type of Pastoral Visit _x__ Initial Visit ___ Follow-up Visit ___ On-call Visit ___ General Patient Visit ___ Spiritual Assessment ___ Family Conference ___ Bereavement ___ Rapid Response ___ Code Blue ___ Other (describe below) Pastoral Care Referral From _x__ Patient ___ Family ___ Nurse ___ Physician ___ Manufacturing Quality Inspector ___ Sprinkler Repair Technician ___ Other (describe below) Sacrament/Intervention _x__ Active listening ___ Anointing ___ Restorationist ___ Bereavement ___ Communion ___ Neisha exploration ___ _x__ Life review _x__ Prayer ___ Reconciliation ___ Sacrament of Sick _x__ Supportive presence ___ Wedding ___ Other (describe below) Pastoral Comments patient states he is pleased with his progress and the care given; pt reviews his health history and interruption to his residential; pt speaks of losing his mother during COVID in a ECF where he could not visit; pt is emotionally struggling with the separation of family at that crucial time; pt states that his support comes from his family and that he is not very religion; pt did however ask for prayer when support of any kind was offered; showed up in room at this time and offer of support was given to her as well
[2021-05-11] MEDS: Tamsulosin HCl 0.4 MG Capsule PO (17:22)
[2021-05-11 20:30] VITALS: BP 129/71; PULSE 90; RESP 16; TEMP 36.8; O2SAT 98; BMI 34.6
[2021-05-11] MEDS: Atorvastatin Calcium 80 MG Tablet PO (20:46)
[2021-05-11] MEDS: busPIRone 5 MG Tablet PO (20:46)
[2021-05-12] MEDS: Acetaminophen 325 MG Tablet 650 MG PO ×4 (01:33→23:33)
[2021-05-12] MEDS: Enoxaparin 40 MG/0.4 ML Syringe SC (05:41)
[2021-05-12 06:00] VITALS: BP 132/82; BP 132/87; BP 144/96; PULSE 73; PULSE 78; PULSE 91
[2021-05-12 06:00] LABS: Absolute Lymphocyte Count 1.96 X10^3/uL (0.83-4.51); Absolute Neutrophil Count 7.2 X10^3/uL (2.0-7.7); Basophil# 0.08 X10^3/uL; Basophil% 0.7 % (0-1); Eosinophil# 0.28 X10^3/uL; Eosinophils% 2.6 % (0-5); Hemoglobin 11.5 g/dL (13.0-16.5); Lymphocyte # 1.96 X10^3/ul (0.83-4.51); Lymphocyte % 18.2 % (19-41); Mean Corp Hgb Conc 31.9 g/dL (32-36); Mean Corpuscular Hgb 29.3 pg (27.0-32.0); Mean Corpuscular Volume 91.8 fL (80-94); Mean Platelet Vol. 9.9 fl (6.2-12.0); Monocyte# 1.11 X10^3/uL; Monocyte% 10.3 % (0-10); NRBC Flagged by Analyzer 0 % (0-5); Neutrophil # 7.19 X10^3/uL (2.7-7.7); Neutrophil % 66.6 % (47-70); Platelet Count 289 K/mm3 (150-450); RBC Distribution Width CV 13.5 % (11.6-14.6); RBC Distribution Width SD 46.1 fl (35.1-43.9); Red Blood Count 3.92 M/mm3 (4.6-6.2); White Blood Count 10.8 K/mm3 (4.4-11.0)
[2021-05-12 06:41] LABS: Anion Gap 7 (5-15); BUN 14 mg/dL (7-18); BUN/Creat Ratio 16.5 RATIO (10-20); Calcium,Total 8.1 mg/dL (8.5-10.1); Chloride 107 mmol/L (98-107); Creatinine, Serum 0.85 mg/dL (0.70-1.30); EST Glomerular Filtration Rate 96 mL/min (>60); Est Glom Filt Rate - Afr Amer 117 mL/min (>60); Estimated Creatinine Clearance 97.92 ml/min; Glucose 98 mg/dL (74-106); Magnesium 2.2 mg/dL (1.6-2.6); Potassium 3.3 mmol/L (3.5-5.1); Sodium Level 141 mmol/L (136-145)
[2021-05-12] MEDS: Clopidogrel Bisulfate 75 MG Tablet PO (07:37)
[2021-05-12] MEDS: Pantoprazole Sodium 40 MG Tablet PO (07:37)
[2021-05-12] MEDS: Gabapentin 400 MG Capsule PO ×3 (07:37→17:07)
[2021-05-12] MEDS: Aspirin 81 MG TAB.CHEW PO (07:37)
[2021-05-12] MEDS: busPIRone 5 MG Tablet PO ×2 (07:37→20:47)
[2021-05-12] MEDS: Cholecalciferol (VIT D3) 25 MCG TABLET (1,000 UNITS) PO (07:37)
[2021-05-12 11:30] VITALS: BP 147/98; PULSE 83; RESP 16; TEMP 36.7; O2SAT 95
[2021-05-12 11:33] LABS: Mucous, Urine 0 SEEN /hpf (<or=2+); Squamous Epithelial Cells - UA 0 SEEN /hpf (0-5)
[2021-05-12 11:39] LABS: Color, Urine Yellow (Yellow); Glucose, Dipstick Normal (Normal); Ketone-Dipstick Negative (Negative); Leukocyte Esterase-Dipstick 100 /ul (Negative); Nitrite-Dipstick Negative (Negative); Occult Blood-Urine 25 /ul (Negative); Protein-Dipstick 15 mg/dl (Negative); Urine Bilirubin Dipstick Negative (Negative); Urine Clarity Clear (Clear); Urine Urobilinogen Normal (Normal); Urine pH 6.5 (5.0 - 8.0)
[2021-05-12 11:53] LABS: Bacteria 1+ /hpf (None Seen); Red Blood Cells-Urine 0-5 SEEN /hpf (0-5); White Blood Cells 0-5 SEEN /hpf (0-5)
[2021-05-12 12:07] VITALS: BMI 34.6
[2021-05-12 12:10] VITALS: BP 140/90; PULSE 99; RESP 18; O2SAT 97
[2021-05-12] MEDS: Tamsulosin HCl 0.4 MG Capsule PO (17:07)
--- NOTE | 2021-05-12 17:09 | PCM.PN.BLA ---
Progress Note Afebrile VSS - he is tachycardic but, no orthostatic change in the BP today. Maintaining appropriate oxygen saturation on RA Oral intake is good Discussed with nursing - no problems that need addressed Reviewed the PT/OT/ST notes Medication list reviewed. All lab was personally reviewed. Potassium is decreased at 3.3 today. Magnesium is within normal limits. Hemoccult stool is negative. Recent urine culture has no growth. Hiccups are much better, Diplopia is intermittent. Still having some epigastric pain and heart burn. Denies SOB. Having lightheadedness mostly in the AM when he is first getting out of bed. Denies dysuria. Physical Exam Const alert, oriented x3 and no apparent distress Eyes PERRL, EOMs intact bilaterally, conjunctivae normal and no scleral icterus Resp normal respiratory effort and clear to auscultation bilaterally Resp Narrative: diminished, maurice with expiration but, no wheezing. Has been using Ventolin MDI TID. Does not want a long acting inhaler. Cardio regular rhythm, no gallops and no JVD Rate: tachycardic GI normal to inspection, nondistended, normoactive bowel sounds and soft to palpation Extremity no calf tenderness Skin General Skin Exam: no breakdown Rashes: no rashes Neuro oriented x3, CN's II-XII intact bilaterally, moves all extremities and no focal motor deficits Assessment & Plan Assessment/Plan (1) Physical debility: (2) Occlusion of left vertebral artery: (3) Stroke, Wallenberg's syndrome: (4) Orthostatic hypotension: (5) Dysautonomia: (6) GERD (gastroesophageal reflux disease): QUALIFIERS: Esophagitis presence: esophagitis presence not specified Qualified Code(s): K21.9 - Gastro-esophageal reflux disease without esophagitis (7) Urine retention: (8) Diplopia: (9) Intractable singultus: PLAN: 1. Increase the Protonix to BID 2. Continue Gabapentin for hiccups. 3. Start Buspar for anxiety which makes the hiccups worse 4. continue therapy Visit Charges Inpatient E&M: 64158 Subs Hosp L2
[2021-05-12] MEDS: Potassium Chloride Oral Tablet 20 MEQ 40 MEQ PO (18:04)
[2021-05-12] MEDS: Atorvastatin Calcium 80 MG Tablet PO (20:48)
[2021-05-12 22:19] VITALS: BP 142/85; PULSE 69; RESP 18; TEMP 36.3; O2SAT 96
--- NOTE | 2021-05-13 00:15 | NURSING ---
Patient up to bathroom to void. NV scan performed, with results 0ml. Patient feels like he is able to empty bladder when voiding. Will continue to monitor.
[2021-05-13 01:05] VITALS: BMI 34.6
[2021-05-13 06:00] VITALS: BP 146/87; BP 149/92; BP 169/107; PULSE 116; PULSE 69; PULSE 86
[2021-05-13] MEDS: Enoxaparin 40 MG/0.4 ML Syringe SC (06:02)
[2021-05-13 07:30] VITALS: BP 146/87; PULSE 96; RESP 18; TEMP 36.6; O2SAT 92
[2021-05-13] MEDS: Gabapentin 400 MG Capsule PO ×3 (08:54→16:39)
[2021-05-13] MEDS: Cholecalciferol (VIT D3) 25 MCG TABLET (1,000 UNITS) PO (08:54)
[2021-05-13] MEDS: Clopidogrel Bisulfate 75 MG Tablet PO (08:54)
[2021-05-13] MEDS: Potassium Chloride Oral Tablet 20 MEQ PO (08:54)
[2021-05-13] MEDS: Pantoprazole Sodium 40 MG Tablet PO (08:54)
[2021-05-13] MEDS: Aspirin 81 MG TAB.CHEW PO (08:54)
[2021-05-13] MEDS: busPIRone 5 MG Tablet PO ×3 (08:54→21:06)
[2021-05-13] MEDS: Albuterol Sulfate 8 gm Inhaler (60 puffs) 2 PUFF INHALATION ×3 (09:32→21:06)
--- NOTE | 2021-05-13 11:10 | PCM.PN.BLA ---
Progress Note Afebrile VSS - he is still orthostatic. The change is primarily with the HR. He c/o lightheadedness initially in the morning when he first gets up but, it gets better after he has been up for a while. Maintaining appropriate oxygen saturation on RA Oral intake was less than 1 liter yesterday but it has been good prior to yesterday. He continues to have >> urine output than intake. He is not on a diuretic. Wt is stable. Discussed with nursing - no problems that need addressed Reviewed the PT/OT notes - has been discharged from speech Medication list reviewed. Hemoccult stool was negative. He states he slept well last night. The hiccups are better. He feels less anxious this AM. He is c/o FAGAN's and the headache is in the posterior neck. It improved with ice and with massage last night. He denies chest pain, shortness of breath, nausea/vomiting/abdominal pain, dysuria. He felt as though he was retaining urine yesterday and he had 1 post void residual of 280 but the next 2 times the post void residual was 0. The UA obtained yesterday showed 0-5 WBCs and +1 bacteria. Urine culture is pending. Physical Exam Const alert, oriented x3 and no apparent distress Constitutional Narrative: General Appearance: cooperative, comfortable, well kempt and anxious HEENT normocephalic, head/scalp atraumatic, hearing grossly normal bilaterally and moist oral mucous membranes Eyes PERRL, EOMs intact bilaterally, conjunctivae normal and no scleral icterus Eyes Narrative: No nystagmus except when he looks quickly to the left side. Neck no lymphadenopathy, supple, No nodes and no carotid bruits General: trachea midline Resp normal respiratory effort, normal air movement and clear to auscultation bilaterally Resp Narrative: diminished but, no wheezing. Not tachypneic and no conversational dyspnea. Effort and Inspection: able to speak in complete sentences and symmetric chest movement; Negative for tachypneic or respiratory distress Cardio regular rate, regular rhythm, S1 normal heart sound, S2 normal heart sound, no murmurs, no rub, no gallops and no JVD Cardio Narrative: No ectopy Rate: tachycardic GI normal to inspection, nondistended, normoactive bowel sounds, soft to palpation and non-tender; Negative for hepatosplenomegaly or no masses GI Narrative: has been refusing the senna. He is having regular BM's Inspection: Negative for abdominal aortic bruit Narrative: . Back/Spine Back/Spine Narrative: occasional low back pain - relieved with PRN Motrin. No spasm or deformity. NT at the present time in the LS spine area. NT at the CVA Extremity no calf tenderness and no pedal edema Extremity Narrative: mild ankle edema - TINA hose are in place General Extremity: edema bilateral (usually it is the RLE that swells at the end of the day and it resolves with elevation. He has a hx of trauma to the distal RLE and it has swelled ever since the wound healed. No hx of VTE) Skin General Skin Exam: no breakdown Rashes: no rashes Neuro oriented x3, CN's II-XII intact bilaterally, moves all extremities, no focal motor deficits and No gait normal Neuro Narrative: . Psych mental status grossly normal, thought process normal, cooperative, affect normal, activity/motor behavior normal, denies hallucinations, denies homicidal ideation and denies suicidal ideation Psych Narrative: Tells me that his anxiety is OK and he does not think he needs an increase in the Buspar.....I do not think he will continue this after DC because he complains tht he is not used to taking medication. Assessment & Plan Assessment/Plan (1) Physical debility: (2) Occlusion of left vertebral artery: (3) Stroke, Wallenberg's syndrome: (4) Dysautonomia: (5) Urine retention: (6) Diplopia: (7) Glucose intolerance (impaired glucose tolerance): (8) Anxiety about health: PLAN: 1. Continue therapy 2. Explained once again why he is retaing urine and why it is necessary to straight cath or insert Villasenor - he still thinks he will not need either. I explained again that when he retains urine the BP an the HR increase significantly and this puts him at risk of another stroke. He would also be at risk for RF due to obstructive uropathy. 3. Continue Buspar for anxiety 4. I get the feeling he is not going to be compliant after DC. He keeps telling me he was always healthy and meds are new to him.........I pointed out that he may have felt healthy but the long standing HTN and HLD and prediabetes and smoking hx all put him at risk and this is why he had a stroke. If these conditions are not controlled he will most likely have additioal cerebrovascular andcardiovascular events. 5. Will need a PCP at [place]. Visit Charges Inpatient E&M: 08156 Subs Hosp L2
[2021-05-13 13:05] LABS: Osmolality, Serum 304 mOsm/KG (280-301)
[2021-05-13 15:04] LABS: Urine Sodium 88 mmol/L (Not Establ.)
[2021-05-13 15:11] LABS: Osmolality, Urine 760 mOsm/KG
[2021-05-13 15:44] VITALS: BMI 34.6
[2021-05-13] MEDS: Acetaminophen 325 MG Tablet 650 MG PO (16:39)
[2021-05-13] MEDS: Tamsulosin HCl 0.4 MG Capsule PO (16:39)
[2021-05-13 19:40] VITALS: BP 140/85; PULSE 66; RESP 17; TEMP 36.4; O2SAT 98
[2021-05-13] MEDS: Arthritis Pain Compound 60 CLICK TUBE TOPICAL (21:05)
[2021-05-13] MEDS: Atorvastatin Calcium 80 MG Tablet PO (21:06)
[2021-05-14 00:15] VITALS: BMI 34.6
[2021-05-14] MEDS: Acetaminophen 325 MG Tablet 650 MG PO (01:38)
--- NOTE | 2021-05-14 03:15 | NURSING ---
REVIEWED AND AGREE WITH HEARTH FEEDER ASSESSMENT.
[2021-05-14] MEDS: Albuterol Sulfate 8 gm Inhaler (60 puffs) 2 PUFF INHALATION ×3 (05:20→20:40)
[2021-05-14] MEDS: busPIRone 5 MG Tablet PO ×3 (05:20→20:40)
[2021-05-14] MEDS: Enoxaparin 40 MG/0.4 ML Syringe SC (05:20)
[2021-05-14 06:36] LABS: Anion Gap -1 (5-15); BUN 13 mg/dL (7-18); BUN/Creat Ratio 14.3 RATIO (10-20); Calcium,Total 8.5 mg/dL (8.5-10.1); Chloride 110 mmol/L (98-107); Creatinine, Serum 0.91 mg/dL (0.70-1.30); EST Glomerular Filtration Rate 89 mL/min (>60); Est Glom Filt Rate - Afr Amer 107 mL/min (>60); Estimated Creatinine Clearance 91.46 ml/min; Glucose 99 mg/dL (74-106); Potassium 3.6 mmol/L (3.5-5.1); Sodium Level 141 mmol/L (136-145)
[2021-05-14 07:42] VITALS: BP 107/71; PULSE 69; RESP 17; TEMP 36.6; O2SAT 96
[2021-05-14] MEDS: Aspirin 81 MG TAB.CHEW PO (07:46)
[2021-05-14] MEDS: Arthritis Pain Compound 60 CLICK TUBE TOPICAL ×2 (07:46→20:41)
[2021-05-14] MEDS: Senna/Docusate Sodium 1 Tablet 2 TABLET PO ×2 (07:47→20:40)
[2021-05-14] MEDS: Clopidogrel Bisulfate 75 MG Tablet PO (07:47)
[2021-05-14] MEDS: Cholecalciferol (VIT D3) 25 MCG TABLET (1,000 UNITS) PO (07:47)
[2021-05-14] MEDS: Pantoprazole Sodium 40 MG Tablet PO (07:47)
[2021-05-14] MEDS: Gabapentin 400 MG Capsule PO ×3 (07:47→16:15)
[2021-05-14] MEDS: Potassium Chloride Oral Tablet 20 MEQ PO (07:47)
[2021-05-14 08:34] VITALS: PULSE 106; RESP 18; O2SAT 95
[2021-05-14 15:30] VITALS: BP 124/86; BP 130/85; BP 151/89; PULSE 100; PULSE 79; PULSE 97
[2021-05-14] MEDS: Tamsulosin HCl 0.4 MG Capsule PO (16:15)
[2021-05-14 19:42] VITALS: BP 127/86; PULSE 102; RESP 16; TEMP 36.6; O2SAT 100
[2021-05-14] MEDS: Atorvastatin Calcium 80 MG Tablet PO (20:40)
[2021-05-15] MEDS: Acetaminophen 325 MG Tablet 650 MG PO (00:55)
[2021-05-15] MEDS: Albuterol Sulfate 8 gm Inhaler (60 puffs) 2 PUFF INHALATION ×3 (04:46→20:55)
[2021-05-15] MEDS: busPIRone 5 MG Tablet PO ×3 (04:47→20:56)
[2021-05-15] MEDS: Enoxaparin 40 MG/0.4 ML Syringe SC (04:47)
[2021-05-15 04:50] VITALS: BMI 34.6
[2021-05-15 05:06] VITALS: BP 115/81; BP 127/87; BP 140/91; PULSE 103; PULSE 89
[2021-05-15 07:38] VITALS: BP 140/91; PULSE 82; RESP 12; TEMP 36.8; O2SAT 100
[2021-05-15] MEDS: Arthritis Pain Compound 60 CLICK TUBE TOPICAL ×2 (08:13→20:56)
[2021-05-15] MEDS: Clopidogrel Bisulfate 75 MG Tablet PO (08:14)
[2021-05-15] MEDS: Pantoprazole Sodium 40 MG Tablet PO (08:14)
[2021-05-15] MEDS: Senna/Docusate Sodium 1 Tablet 2 TABLET PO (08:14)
[2021-05-15] MEDS: Aspirin 81 MG TAB.CHEW PO (08:14)
[2021-05-15] MEDS: Cholecalciferol (VIT D3) 25 MCG TABLET (1,000 UNITS) PO (08:14)
[2021-05-15] MEDS: Gabapentin 400 MG Capsule PO ×3 (08:14→16:44)
[2021-05-15] MEDS: Potassium Chloride Oral Tablet 20 MEQ PO (08:15)
--- NOTE | 2021-05-15 14:11 | PCM.PN.BLA ---
Progress Note Afebrile VSS - BP is routinely above goal lying down but he is still orthostatic Maintaining appropriate oxygen saturation on RA Oral intake is good Discussed with nursing - He continues to retain urine and has had to have a straight cath. Reviewed the PT/OT notes. ST has released him Medication list reviewed. He denies chest pain, shortness of breath, hemoptysis, palpitations, nausea/vomiting/abdominal pain, dysuria, back pain. He has lightheadedness but, it is getting better and is now mostly just in the AM when he first gets out of bed. Physical Exam Const alert, oriented x3, no apparent distress and average body habitus General Appearance: cooperative, comfortable, well kempt and anxious Eyes PERRL, EOMs intact bilaterally, conjunctivae normal and no scleral icterus Eyes Narrative: No nystagmus except when he looks quickly to the left side. Resp normal respiratory effort, normal air movement and clear to auscultation bilaterally Effort and Inspection: able to speak in complete sentences and symmetric chest movement; Negative for tachypneic or respiratory distress Cardio regular rate, regular rhythm, S1 normal heart sound, S2 normal heart sound, no murmurs, no rub and no gallops Cardio Narrative: The HR picks up with changes in position and when he is ambulating. GI normal to inspection, nondistended, normoactive bowel sounds, soft to palpation and non-tender; Negative for hepatosplenomegaly or no masses GI Narrative: No guarding with palpation. BS's are not hyperactive. Back/Spine Back/Spine Narrative: occasional low back pain - relieved with PRN Motrin. No spasm or deformity. NT at the present time in the LS spine area. NT at the CVA Extremity no calf tenderness and no pedal edema Extremity Narrative: TINA hose are in place Skin General Skin Exam: no breakdown Rashes: no rashes Neuro oriented x3, moves all extremities, no focal motor deficits and No gait normal Neuro Narrative: He has decreased temperature sensation in the RUE. He has intact touch sensation. Still with mild perception of weakness on the R side Psych mental status grossly normal, thought process normal, cooperative, affect normal, activity/motor behavior normal, denies hallucinations, denies homicidal ideation and denies suicidal ideation Assessment & Plan Assessment/Plan (1) Stroke, Wallenberg's syndrome: (2) Urine retention: (3) HTN (hypertension): QUALIFIERS: Hypertension type: primary hypertension Qualified Code(s): I10 - Essential (primary) hypertension (4) Orthostatic hypotension: PLAN: 1. We once again discussed the COVID vaccine and he continues to refuse. He had COVID this year and he survived. I pointed out he is overweight, has asthma and now has had a stroke so his risk is high of being hospitalized and even dying if he gets COVID again. He still refuses. 2. If we have to straight cath again will start teaching him how to straight cath himself.......he is not happy about this but, he understands that there are less infections with straight cathing than with Villasenor's. He was good for a few days and then the retention started again. It may be that the prostate was dilated from the Villasenor and everything was good for a few days. I really can not increase the Flomax due to the autonomic insufficiency and symptomatic orthostatic hypotension. Will continue the TINA hose. Visit Charges Inpatient E&M: 16672 Subs Hosp L2
[2021-05-15 15:27] VITALS: BMI 34.6
[2021-05-15] MEDS: Tamsulosin HCl 0.4 MG Capsule PO (16:44)
[2021-05-15 19:26] VITALS: BP 118/88; PULSE 82; RESP 16; TEMP 36.8; O2SAT 97
[2021-05-15] MEDS: Atorvastatin Calcium 80 MG Tablet PO (20:56)
[2021-05-15 21:07] VITALS: BMI 34.6
[2021-05-16] MEDS: Acetaminophen 325 MG Tablet 650 MG PO (02:49)
--- NOTE | 2021-05-16 02:55 | NURSING ---
PT WAKES FROM SLEEP WITH A HEADACHE TO ENTIRE HEAD THAT HE RATES #9 ON PAIN SCALE. PT NEURO ASSSESSMENT IS UNCHANGED. VS AND BLOOD SUGAR OBTAINED, PT GIVEN TYLENOL AND ICEPACK TO BACK OF HEAD. BLADDER SCAN SHOWS 199 ML URINE AND PT FEELS NO BLADDER PRESSURE.
[2021-05-16 02:57] VITALS: BP 145/88; PULSE 62; RESP 12; TEMP 36.8; O2SAT 98
[2021-05-16 03:06] LABS: Bedside Glucose 103 mg/dL (70-110)
--- NOTE | 2021-05-16 03:07 | NURSING ---
HEADACHE PAIN HAS DECREASED TO #6. OH IS RESTING WITH EYES CLOSED. RESP ARE EVEN AND EASY. HOB ELEVATED AT 45 DEGREES. LIGHTS TURNED OFF.
[2021-05-16 06:00] VITALS: BP 142/94; BP 150/87; BP 157/85; PULSE 104; PULSE 63; PULSE 67
[2021-05-16] MEDS: Albuterol Sulfate 8 gm Inhaler (60 puffs) 2 PUFF INHALATION ×3 (06:57→21:08)
[2021-05-16] MEDS: Enoxaparin 40 MG/0.4 ML Syringe SC (06:58)
[2021-05-16] MEDS: busPIRone 5 MG Tablet PO ×3 (06:58→21:09)
[2021-05-16 07:37] VITALS: BP 157/85; PULSE 63; RESP 12; TEMP 36.6; O2SAT 97
[2021-05-16] MEDS: Clopidogrel Bisulfate 75 MG Tablet PO (08:10)
[2021-05-16] MEDS: Potassium Chloride Oral Tablet 20 MEQ PO (08:10)
[2021-05-16] MEDS: Gabapentin 400 MG Capsule PO ×3 (08:10→16:52)
[2021-05-16] MEDS: Aspirin 81 MG TAB.CHEW PO (08:10)
[2021-05-16] MEDS: Arthritis Pain Compound 60 CLICK TUBE TOPICAL ×2 (08:11→21:11)
[2021-05-16] MEDS: Cholecalciferol (VIT D3) 25 MCG TABLET (1,000 UNITS) PO (08:11)
[2021-05-16] MEDS: Pantoprazole Sodium 40 MG Tablet PO (08:11)
[2021-05-16 15:29] VITALS: BMI 34.6
--- NOTE | 2021-05-16 16:05 | NURSING ---
pt back to bed and very defeated acting and upset over needing to be st cathed. pt had wanted movie extra not to scan d/t this. denies any feeling of fullness though straight cath done for 875cc. pt refusing to be shown how to do but ok for nurse to talk thru steps anyways. pt up to chair and will try to go more freq to avoid having to be cathed
[2021-05-16] MEDS: Tamsulosin HCl 0.4 MG Capsule PO (16:52)
[2021-05-16] MEDS: Atorvastatin Calcium 80 MG Tablet PO (21:09)
[2021-05-16 21:15] VITALS: BP 143/90; PULSE 79; RESP 18; TEMP 36.7; O2SAT 95
[2021-05-16 22:15] VITALS: BMI 34.6
[2021-05-17] MEDS: Acetaminophen 325 MG Tablet 650 MG PO ×3 (00:49→23:03)
--- NOTE | 2021-05-17 00:57 | NURSING ---
pt had not voided since 1629 and had made an attempt 2114 with no success. 0035 staff went into check pt to see if he needed to void. pt went into the br and voided 200cc of cloudy light yellow urine. pt bladder scanned and value was 0cc. pt stated that he feel like he didn't empty and staff scanned again and still the value was 0cc. pt was given reassurance with fair effect. ice pack and tylenol given for neck discomfort. no other needs are voiced. rn aware
--- NOTE | 2021-05-17 02:07 | NURSING ---
Reviewed and agree with WEBSPHERE CONSULTANT assessment and note.
--- NOTE | 2021-05-17 02:40 | NURSING ---
Pt states he has a headache rates a /10. Perrla. BP 135/73, HR reg 91. Denies any numbness or weakness. Pt is not due for tylenol. States he will use ice packs which help headache. Pt will call nurse if headache worsens or any other symptoms occur. Will cont to monitor pt.
[2021-05-17 06:00] VITALS: BP 134/92; BP 144/99; BP 148/87; PULSE 66; PULSE 73; PULSE 96
[2021-05-17] MEDS: Enoxaparin 40 MG/0.4 ML Syringe SC (06:05)
[2021-05-17] MEDS: Albuterol Sulfate 8 gm Inhaler (60 puffs) 2 PUFF INHALATION ×3 (06:06→20:19)
[2021-05-17] MEDS: busPIRone 5 MG Tablet PO ×3 (06:06→20:19)
--- NOTE | 2021-05-17 07:22 | NURSING ---
pt awake and 0245 and reports that he has a bad headache and staff unable to medicate at this time d/t it was not time. pt requested to sit on the side of the bed for a few minutes pt then returned to bed. pt woke up at 0545 and pt stated that his h/a was now a 7/10, rn to given tylenol and am medication. pt up in recliner for comfort with ice pack to back of head bp was 158/75 and ap 66.
[2021-05-17] MEDS: Cholecalciferol (VIT D3) 25 MCG TABLET (1,000 UNITS) PO (08:14)
[2021-05-17] MEDS: Aspirin 81 MG TAB.CHEW PO (08:15)
[2021-05-17] MEDS: Arthritis Pain Compound 60 CLICK TUBE TOPICAL ×2 (08:15→20:18)
[2021-05-17] MEDS: Potassium Chloride Oral Tablet 20 MEQ PO (08:15)
[2021-05-17] MEDS: Clopidogrel Bisulfate 75 MG Tablet PO (08:15)
[2021-05-17] MEDS: Gabapentin 400 MG Capsule PO ×3 (08:15→17:53)
[2021-05-17] MEDS: Pantoprazole Sodium 40 MG Tablet PO (08:15)
[2021-05-17 10:00] VITALS: BP 153/85; PULSE 65; RESP 18; TEMP 36.7; O2SAT 95
--- NOTE | 2021-05-17 10:50 | NURSING ---
pt called out for br but when done admitted to song and dance performer that felt that wasnt emptying again back to bed and bladder scanned for 690. pt aware that needing st cathed again. pt again feeling discouraged and emotional support given
[2021-05-17 13:37] VITALS: BMI 34.6
[2021-05-17] MEDS: Tamsulosin HCl 0.4 MG Capsule PO (17:53)
[2021-05-17 19:30] VITALS: BP 144/92; PULSE 66; RESP 18; TEMP 36.5; O2SAT 97
[2021-05-17] MEDS: Atorvastatin Calcium 80 MG Tablet PO (20:19)
[2021-05-18 00:23] VITALS: BMI 34.6
[2021-05-18] MEDS: Acetaminophen 325 MG Tablet 650 MG PO (05:38)
[2021-05-18] MEDS: Enoxaparin 40 MG/0.4 ML Syringe SC (05:39)
[2021-05-18] MEDS: busPIRone 5 MG Tablet PO ×3 (05:39→20:30)
[2021-05-18] MEDS: Albuterol Sulfate 8 gm Inhaler (60 puffs) 2 PUFF INHALATION ×3 (05:39→20:30)
[2021-05-18 05:45] VITALS: BP 109/76; BP 132/90; BP 143/94; PULSE 105; PULSE 84; PULSE 86
[2021-05-18 07:38] VITALS: BP 132/90; PULSE 86; RESP 16; TEMP 37.1; O2SAT 97
[2021-05-18] MEDS: Clopidogrel Bisulfate 75 MG Tablet PO (08:55)
[2021-05-18] MEDS: Cholecalciferol (VIT D3) 25 MCG TABLET (1,000 UNITS) PO (08:55)
[2021-05-18] MEDS: Potassium Chloride Oral Tablet 20 MEQ PO (08:55)
[2021-05-18] MEDS: Aspirin 81 MG TAB.CHEW PO (08:55)
[2021-05-18] MEDS: Pantoprazole Sodium 40 MG Tablet PO (08:56)
[2021-05-18] MEDS: Arthritis Pain Compound 60 CLICK TUBE TOPICAL ×2 (08:56→20:31)
[2021-05-18] MEDS: Gabapentin 400 MG Capsule PO ×3 (08:56→17:20)
[2021-05-18 13:53] VITALS: BMI 34.6
--- NOTE | 2021-05-18 14:09 | CASEMGMT ---
Social Work IDT met with patient and for Team meeting. Discussed patient's progress in therapy and nursing. Pt progressing well. Explained Medicare DC 05/24. IDT and pt agreeable. Pt to DC home with . Pt requesting outpatient therapy at [facility]. Referral made for PT/OT. No DME needs. to transport. Plan: DC home with 05/24, [facility] PT/OT HUMBLE [facility]attW
--- NOTE | 2021-05-18 15:44 | PCM.PN.BLA ---
Progress Note Nahid was seen on TEAM rounds today and his Criss was present in the room for rounds. Afebrile VSS-orthostatic vital signs are still positive today. Nahid tells me that the only time he really feels lightheaded is when he first sits up and then stands in the morning. Maintaining appropriate oxygen saturation on RA Oral intake is good Discussed with nursing - He has refused to allow nursing to teach him how to straight cath. He tells me that he is going fine. But, is urinating every 1-2 hours and was up most of the night trying to urinate. Reviewed the PT/OT notes. He is doing well in therapy and did multiple loops in the boyd this AM with a WW at [facility] with no LOB. He felt very fatigued afterward. Medication list reviewed. He is constantly trying to empty his bladder because he really does not want to have to straight cath himself at home. He wants his to do it, she does not want to. He denies dysuria. unfortunately the bladder scan is erratic because the machine is not working properly and we will have to try and borrow one from another floor. The current bladder scanner has been scheduled for service. The diplopia has improved significantly and primarily bothers him now when he is trying to look at something far away. He has not had to patch the eye recently. He has no hiccups now. The therapists no longer have to place a weight on the leg to help with balance. He denies CP, SOB, palpitations, N/V, dysuria. He has hesitancy and frequency and dribbles. Physical Exam Const alert, oriented x3, no apparent distress and average body habitus General Appearance: cooperative and well kempt HEENT normocephalic Eyes PERRL, EOMs intact bilaterally, conjunctivae normal and no scleral icterus Resp normal respiratory effort and clear to auscultation bilaterally Cardio regular rate, regular rhythm and no gallops Cardio Narrative: The HR picks up with changes in position and when he is ambulating. GI normal to inspection, nondistended, normoactive bowel sounds, soft to palpation and non-tender Extremity no calf tenderness and no pedal edema Extremity Narrative: TINA hose are in place Skin General Skin Exam: no breakdown Rashes: no rashes Neuro Neuro Narrative: He has decreased temperature sensation in the RUE. He has intact touch sensation. Still with mild perception of weakness on the R side Assessment & Plan Assessment/Plan (1) Physical debility: (2) Stroke, Wallenberg's syndrome: (3) Dysautonomia: (4) Urine retention: PLAN: 1. The blood pressures are above goal however, he is still orthostatic and symptomatic in the AM and I can not treat this at present. He is on Flomax which cause orthostasis but, He is asymptomatic now so I left it. When he is retaining the BP soars and can be as high as 200 systolic......this is verbal from the nurse...they have not been documenting. 2. I explained to Nahid and Criss that urine retention leads to infections and possibly sepsis which can be fatal. I also explained that chronic retention can also lead to kidney failure. I gave them 2 options, straight cath until he can be seen by Dr. Smallwood or Jacklyn. I also explained that there are more infections with Villasenor than there are with doing the straight cath 3 times a day. He has chosen straight cath and nursing will begin teaching......both Nahid and his . An appt will be made for him to see Dr. Smallwood as soon as possible. 3. check a CBC and BMP on Tuesday 4. Continue therapy Visit Charges Inpatient E&M: 81166 Subs Hosp L2
[2021-05-18] MEDS: Tamsulosin HCl 0.4 MG Capsule PO (17:20)
--- NOTE | 2021-05-18 17:44 | NURSING ---
PT STATES HE DOES NOT NEED THE MUSCLE RELAXER OR ACID MEDICATION FOR HICCUPS. I'M NOT HICCUPING ANYMORE AND THAT MED MAKES ME GO TO SLEEP RIGHT AWAY. ALSO I'VE NEVER HAD A PROBLEM WITH ACID REFLUX. I DON'T TAKE THIS MUCH MEDICATION. I'M OVER MEDICATED HERE. PT INFORMED THAT HE DOES NOT TAKE A MUSCLE RELAXER AT THIS TIME. BUT THAT THIS NURSE WOULD DISCUSS MEDICATIONS WITH THE DOCTOR. DISCUSSED WITH DR ARDON. DR ARDON GAVE VERBAL ORDER TO STOP GABAPENTIN AND PROTONIX. WILL MONITOR FOR HICCUPS.
[2021-05-18] MEDS: Atorvastatin Calcium 80 MG Tablet PO (20:30)
--- NOTE | 2021-05-18 20:47 | NURSING ---
pt straight cathed for 1010 ml
[2021-05-18 22:00] VITALS: BP 119/77; PULSE 91; RESP 16; TEMP 36.7; O2SAT 94
[2021-05-19 06:00] VITALS: BP 140/90; BP 151/95; BP 153/109; PULSE 103; PULSE 105; PULSE 84
[2021-05-19] MEDS: Enoxaparin 40 MG/0.4 ML Syringe SC (06:05)
[2021-05-19] MEDS: Albuterol Sulfate 8 gm Inhaler (60 puffs) 2 PUFF INHALATION ×3 (06:06→20:20)
[2021-05-19] MEDS: busPIRone 5 MG Tablet PO ×3 (06:10→20:13)
[2021-05-19 07:30] VITALS: BP 140/90; PULSE 84; RESP 18; TEMP 36.9; O2SAT 95
[2021-05-19] MEDS: Potassium Chloride Oral Tablet 20 MEQ PO (07:34)
[2021-05-19] MEDS: Aspirin 81 MG TAB.CHEW PO (07:34)
[2021-05-19] MEDS: Cholecalciferol (VIT D3) 25 MCG TABLET (1,000 UNITS) PO (07:35)
[2021-05-19] MEDS: Clopidogrel Bisulfate 75 MG Tablet PO (07:35)
[2021-05-19] MEDS: Arthritis Pain Compound 60 CLICK TUBE TOPICAL ×2 (07:35→20:18)
--- NOTE | 2021-05-19 12:04 | PN_ITS ---
Progress Note The BP today was 140/90 lying down. Sitting up the blood pressure increased to 151/95 and when standing the blood pressure was 153/109. Last night he was [facility]ed at bedtime for 1010. He urinated 300 this AM and has not gone since. When the BP is that high he is usually retaining. Will bladder scan now. Afebrile since admission Maintaining appropriate oxygen saturation on room air. Gabapentin and pantoprazole were discontinued yesterday at the patient's request. He denies Heartburn and he also denies hiccups. Physical Exam Const alert, oriented x3 and no apparent distress Resp clear to auscultation bilaterally Effort and Inspection: able to speak in complete sentences Cardio regular rate, regular rhythm and no gallops Cardio Narrative: No ectopy GI normal to inspection, nondistended, normoactive bowel sounds, soft to palpation and non-tender Extremity Extremity Narrative: mild ankle edema - TINA hose are in place Neuro Neuro Narrative: Diplopia has resolved and so have the hiccups. He has a loss of temperature sense in the R arm but the weakness is on the left. He thinks it his R arm is hot but in actuality he is unable to feel cold. Psych mental status grossly normal, thought process normal, cooperative and affect normal Assessment & Plan Assessment/Plan (1) Physical debility: (2) Occlusion of left vertebral artery: (3) Stroke, Wallenberg's syndrome: (4) Dysautonomia: (5) Urine retention: (6) Diplopia: (7) Glucose intolerance (impaired glucose tolerance): (8) Anxiety about health: PLAN: 1. continue therapy. If the hiccups reoccur will restart Gabapentin. Nahid does not like taking it because it makes him tired and his balance is worse. 2. Continue to try to encourage him to try straight cath'g himself. If he is unwilling to do this may have to insert a Villasenor catheter. 3. Will need to follow up with neurology. An appt has been made for him with a new PCP and that will be Dr. Cabrera. Visit Charges Inpatient E&M: 48661 Subs Hosp L2
--- NOTE | 2021-05-19 12:35 | CON.PCM.UR_ITS ---
Assessment & Plan Assessment/Plan (1) Urine retention: PLAN: doulble flomax check PVR after voids call urology with questions. HPI Consult Data Date of Consult: 05/19/21 HPI Narrative HPI Narrative: LINO DRAKE, is a 66 M who presents to rehad after a stroke doing okay having problem voiding, does not recall have problems before slow stream hard to empty bladder, on flomax. for now we can double dose of flomax to bid cath prn if can't void follow up with urology outpatient, may have neurogenic bladder as result of stroke may need urodynamics [facility] Medical History (Updated 05/13/21 @ 00:00 by Vanessa Blackmon) Allergic rhinitis Asthma CVA (cerebral vascular accident) Former tobacco use Hypertensive urgency Obesity Vomiting Home Medications albuterol sulfate [Ventolin HFA] 2 puff INHALATION Q6H PRN PRN 10/28/14 [History Last Taken Unknown] fluticasone propion-salmeterol [Advair Diskus] 1 puff INHALATION BID 10/28/14 [History Last Taken 10/31/14 09:00] aspirin 81 mg PO DAILY 05/05/21 [History Last Taken Unknown] atorvastatin 80 mg PO QHS 05/05/21 [History Last Taken Unknown] chlorpromazine [Thorazine] 25 mg PO Q4H PRN 05/05/21 [History Last Taken Unknown] clopidogrel 75 mg PO DAILY 05/05/21 [History Last Taken Unknown] meclizine [Antivert] 25 mg PO BID 05/05/21 [History Last Taken Unknown] Allergy/AdvReac Type Severity Reaction Status Date / Time latex Allergy Rash Verified 05/03/21 18:33 Family History Mother HLD (hyperlipidemia) Hypertension Heart disease CVA (cerebral vascular accident) Father HLD (hyperlipidemia) Hypertension Heart disease CVA (cerebral vascular accident) Surgical History H/O inguinal hernia repair H/O ventral hernia repair Social History household members: spouse Smoking Status: Former smoker alcohol intake: never substance use type: does not use Physical Exam Const alert and oriented x3 General Appearance: cooperative HEENT normocephalic, head/scalp atraumatic, EAC's normal and TM's normal bilaterally Eyes PERRL and EOMs intact bilaterally Pupil: sluggish Neck no lymphadenopathy, supple and no JVD General: trachea midline Lymph Lymphatic: no lymphadenopathy noted, lymphedema and lymphadenopathy Resp normal respiratory effort, normal air movement and clear to auscultation bilaterally Cardio regular rate, regular rhythm and peripheral pulses 2+ throughout GI soft to palpation, non-tender and non-distended Extremity normal capillary refill and no clubbing, cyanosis or edema General Extremity: no tenderness to palpation of joints or extremities Skin no rashes or lesions noted General Skin Exam: turgor normal Lesions: no lesions Rashes: no rashes Neuro CN's II-XII intact bilaterally Speech: speech normal Motor Exam: strength 5/5 throughout; Negative for general weakness Psych thought process normal, cooperative and affect normal Appearance: appropriate Lab / Micro Data Result Diagrams: 05/12/21 05:32 05/14/21 05:21
[2021-05-19] MEDS: Tamsulosin HCl 0.4 MG Capsule PO ×2 (13:35→20:13)
--- NOTE | 2021-05-19 14:03 | NURSING ---
pt voided 200ml, bladder scanned for 575ml. Dr uribe and Dr Smallwood made aware p/Dr smallwood request. pt refused to be st cathed at this time. advised of ramifications for urinary retention. pt states I know, I will tried to urinated again in a little while.
[2021-05-19 15:18] VITALS: BMI 34.6
[2021-05-19] MEDS: Senna/Docusate Sodium 1 Tablet 2 TABLET PO (20:14)
[2021-05-19] MEDS: Atorvastatin Calcium 80 MG Tablet PO (20:14)
[2021-05-19 22:00] VITALS: BP 137/97; PULSE 85; RESP 16; TEMP 36.6; O2SAT 97
[2021-05-19 23:53] VITALS: PULSE 90; RESP 12; O2SAT 97
--- NOTE | 2021-05-20 00:12 | NURSING ---
Villasenor placed per order. #[id number] placed without difficulty. Urine draining to bag was clear yellow. Patient handled well, no c/o pain noted.
[2021-05-20 03:40] VITALS: BMI 34.6
[2021-05-20] MEDS: busPIRone 5 MG Tablet PO ×3 (06:01→22:24)
[2021-05-20] MEDS: Enoxaparin 40 MG/0.4 ML Syringe SC (06:01)
[2021-05-20] MEDS: Acetaminophen 325 MG Tablet 650 MG PO (06:04)
[2021-05-20] MEDS: Albuterol Sulfate 8 gm Inhaler (60 puffs) 2 PUFF INHALATION ×3 (06:07→22:24)
[2021-05-20 06:32] VITALS: BP 105/72; BP 123/60; BP 127/88
[2021-05-20 06:51] VITALS: BP 105/72; BP 123/60; BP 127/88; PULSE 104; PULSE 69; PULSE 87
[2021-05-20 08:00] VITALS: BP 123/60; PULSE 69; RESP 18; TEMP 36.8; O2SAT 94
[2021-05-20 08:15] VITALS: BP 132/82; PULSE 70
--- NOTE | 2021-05-20 09:25 | NURSING ---
pt c/o lightheadedness, dizziness and headache. headache resolved with prn Tylenol. Orthostatic blood pressures are positive. Dr Pizano made aware. Flomax decreased to 0.4mg daily. Spoke with Meredith at Dr Smallwood's office to make aware of changes.
[2021-05-20] MEDS: Clopidogrel Bisulfate 75 MG Tablet PO (09:32)
[2021-05-20] MEDS: Aspirin 81 MG TAB.CHEW PO (09:32)
[2021-05-20] MEDS: Potassium Chloride Oral Tablet 20 MEQ PO (09:32)
[2021-05-20] MEDS: Cholecalciferol (VIT D3) 25 MCG TABLET (1,000 UNITS) PO (09:33)
[2021-05-20] MEDS: Senna/Docusate Sodium 1 Tablet 2 TABLET PO (09:33)
--- NOTE | 2021-05-20 10:54 | PCM.PN.BLA ---
Progress Note Afebrile VSS -blood pressure is better today however, he had 2 doses of Flomax yesterday (Dr. Smallwood increased the dose) Maintaining appropriate oxygen saturation on RA Oral intake is good Discussed with nursing - Villasenor was inserted last night and when it was inserted he had over 1,000 cc's in the bladder. He is complaining he does not want to walk around with a bag. BP is much better since he no longer has urine retention. Reviewed the PT/OT notes Medication list reviewed. Nahid had severe lightheadedness while standing this AM and felt as though he was going to fall/pass out. When he laid back down after standing for 5 minutes he had a head gimenez and then had a headache.......it resolved after laying down for a while. He was able to do therapy in bed and in the chair and tolerated the treatment. He has no hiccups and denies diplopia. He has now made the connection between the high BP's and HR with urine retention and is reluctantly agreeable to the Villasenor. Will teach him to use the leg bag after he leaves rehab. He has an appt with Dr. Smallwood Tuesday at 2:15. Denies heartburn and abdominal pain today. Physical Exam Const alert, oriented x3 and no apparent distress Constitutional Narrative: calm, less agitated than yesterday when he was trying to force urine out every hour and was still retaining. Even when the residual was > 500 he would not allow nursing to do a straight cath because he wanted to keep trying to force the urine out. He was sitting in the recliner when I talked with him and he denied lightheadedness. Resp clear to auscultation bilaterally Resp Narrative: diminished but, no wheezing. Not tachypneic and no conversational dyspnea. Effort and Inspection: able to speak in complete sentences Cardio regular rate and regular rhythm Cardio Narrative: no ectopy. No tachycardia today GI normal to inspection, nondistended, normoactive bowel sounds, soft to palpation and non-tender Extremity no calf tenderness Extremity Narrative: Trace ankle edema. TINA hose are in place. Skin General Skin Exam: no breakdown Rashes: no rashes Psych Psych Narrative: Tells me that his anxiety is OK and he does not think he needs an increase in the Buspar.....I do not think he will continue this after DC because he complains tht he is not used to taking medication. Assessment & Plan Assessment/Plan (1) Physical debility: (2) Stroke, Wallenberg's syndrome: (3) Dysautonomia: (4) Orthostatic hypotension: (5) Urine retention: (6) Hematuria: QUALIFIERS: Hematuria type: unspecified type Qualified Code(s): R31.9 - Hematuria, unspecified PLAN: 1. Hematuria is due to the Villasenor and it is mild. Will DC the Lovenox as he is up and around now and he is compliant with the TINA hose. 2. Appt with Dr. Smallwood for follow up on Tuesday. 3. Continue therapy. 4. He will follow up with Dr. Cabrera post DC Visit Charges Inpatient E&M: 60924 Subs Hosp L2
[2021-05-20 15:41] VITALS: BMI 34.6
[2021-05-20] MEDS: Tamsulosin HCl 0.4 MG Capsule PO (16:29)
[2021-05-20 19:46] VITALS: BP 133/83; PULSE 74; RESP 18; TEMP 36.6; O2SAT 97
[2021-05-20] MEDS: Atorvastatin Calcium 80 MG Tablet PO (22:24)
[2021-05-20] MEDS: Arthritis Pain Compound 60 CLICK TUBE TOPICAL (22:24)
[2021-05-21 06:00] VITALS: BP 107/81; BP 108/81; BP 123/87; PULSE 102; PULSE 114; PULSE 81
[2021-05-21 07:03] LABS: Hematocrit 39.8 % (40-54); Hemoglobin 12.5 g/dL (13.0-16.5)
[2021-05-21] MEDS: busPIRone 5 MG Tablet PO ×3 (07:03→20:37)
[2021-05-21] MEDS: Albuterol Sulfate 8 gm Inhaler (60 puffs) 2 PUFF INHALATION ×3 (07:03→20:37)
[2021-05-21 07:54] VITALS: BP 116/81; PULSE 86; RESP 16; TEMP 37.2; O2SAT 97
[2021-05-21 08:21] LABS: Anion Gap 7 (5-15); BUN 11 mg/dL (7-18); BUN/Creat Ratio 10.5 RATIO (10-20); Calcium,Total 8.9 mg/dL (8.5-10.1); Chloride 105 mmol/L (98-107); Creatinine, Serum 1.05 mg/dL (0.70-1.30); EST Glomerular Filtration Rate 75 mL/min (>60); Est Glom Filt Rate - Afr Amer 91 mL/min (>60); Estimated Creatinine Clearance 79.27 ml/min; Glucose 116 mg/dL (74-106); Potassium 4.1 mmol/L (3.5-5.1); Sodium Level 140 mmol/L (136-145)
[2021-05-21] MEDS: Arthritis Pain Compound 60 CLICK TUBE TOPICAL ×2 (08:30→20:38)
[2021-05-21] MEDS: Cholecalciferol (VIT D3) 25 MCG TABLET (1,000 UNITS) PO (08:31)
[2021-05-21] MEDS: Aspirin 81 MG TAB.CHEW PO (08:31)
[2021-05-21] MEDS: Clopidogrel Bisulfate 75 MG Tablet PO (08:31)
[2021-05-21] MEDS: Potassium Chloride Oral Tablet 20 MEQ PO (08:31)
[2021-05-21] MEDS: Acetaminophen 325 MG Tablet 650 MG PO (13:25)
--- NOTE | 2021-05-21 15:17 | PCM.PN.BLA ---
Progress Note Afebrile Heart rate sitting was 81 and with standing the heart rate increased to 114. Blood pressure lying down was 123/87 and dropped to 108/81 with standing. This is a positive test for standing. Maintaining appropriate oxygen saturation on RA Oral intake is good Discussed with nursing - The urine in the bag is pink tinged. Nursing tells me there was some traction on the bag yesterday at one time. The Lovenox was discontinued yesterday. Reviewed the PT/OT notes Medication list reviewed. All current lab was personally reviewed. Heme globin is up to 12.5 from 11.5 on 05/12/21. The BMP is unremarkable and the BUN is 11 with a creatinine of 1.05. Potassium is 4.1. Fasting blood sugar is 116 and the hemoglobin A1c was 5.9. Nahid tells me the lightheadedness if better today and he had lightheadedness only when first getting up this AM. He was able to ambulate in the halls with a FWW and no LOB, diaphoresis or weakness. Now that he is no longer retaining urine the BP's are lower. Physical Exam Const alert and no apparent distress General Appearance: cooperative HEENT moist oral mucous membranes Resp normal respiratory effort, normal air movement and clear to auscultation bilaterally Cardio regular rate, regular rhythm and no gallops GI normal to inspection, nondistended, normoactive bowel sounds, soft to palpation and non-tender GI Narrative: has been refusing the senna. He is having regular BM's Narrative: Urine in the Villasenor bag is pink tinged but, no gross hematuria. Bladder / Kidney Exam: catheter in place Extremity no calf tenderness Assessment & Plan Assessment/Plan (1) Physical debility: (2) Occlusion of left vertebral artery: (3) Stroke, Wallenberg's syndrome: (4) Dysautonomia: (5) Orthostatic hypotension: (6) Urine retention: (7) Glucose intolerance (impaired glucose tolerance): PLAN: 1. Continue the daily orthostatics. If he is still orthostatic on Tuesday will DC the Flomax since he has a Villasenor in now. He is very resistant to straight cath'g himself. He has an appt with Dr. Smallwood on this coming Tuesday 2. Continue therapy 3. DC on Tuesday 4. DC the potassium and recheck a K on Tuesday AM - he may no longer need potassium Visit Charges Inpatient E&M: 98973 Subs Hosp L2
[2021-05-21] MEDS: Tamsulosin HCl 0.4 MG Capsule PO (16:39)
[2021-05-21 16:46] VITALS: BMI 34.6
[2021-05-21] MEDS: Atorvastatin Calcium 80 MG Tablet PO (20:37)
[2021-05-21 21:14] VITALS: BP 123/78; PULSE 86; RESP 16; TEMP 36.6; O2SAT 95
[2021-05-22] MEDS: Albuterol Sulfate 8 gm Inhaler (60 puffs) 2 PUFF INHALATION ×3 (05:08→21:10)
[2021-05-22] MEDS: busPIRone 5 MG Tablet PO ×3 (05:09→21:09)
[2021-05-22 06:00] VITALS: BP 118/79; BP 121/73; BP 138/89; PULSE 118; PULSE 69; PULSE 88
[2021-05-22 08:11] VITALS: BP 128/92; PULSE 69; RESP 16; TEMP 36.9; O2SAT 94
[2021-05-22] MEDS: Arthritis Pain Compound 60 CLICK TUBE TOPICAL ×2 (08:16→21:09)
[2021-05-22] MEDS: Potassium Chloride Oral Tablet 20 MEQ PO (08:16)
[2021-05-22] MEDS: Aspirin 81 MG TAB.CHEW PO (08:16)
[2021-05-22] MEDS: Clopidogrel Bisulfate 75 MG Tablet PO (08:16)
[2021-05-22] MEDS: Cholecalciferol (VIT D3) 25 MCG TABLET (1,000 UNITS) PO (08:16)
[2021-05-22] MEDS: Acetaminophen 325 MG Tablet 650 MG PO (08:23)
--- NOTE | 2021-05-22 16:24 | DCINST_ITS ---
Discharge Instructions Diet Discharge Diet: Low fat / Low cholesterol and 4000 mg Sodium Diet Activity Discharge Activity: May Not Drive, May Shower, Use Walker and - (Do the exercises given to you by the therapists at least once a day) Weight Bearing Status: Full weight bearing Lifting Restrictions: 10 lbs Keep extremity elevated above heart level: Legs Dressing / Incision Call your doctor if you observe: Fever of 101 or Higher, Inability to have a bowel movement, Shortness of breath, Fainting spells, Swelling in the ankles, Chest pain, Prolonged hiccupping, Increased palpitations (irregular heartbeat), Calf discomfort and - (If the urine is dark red or if the Villasenor is not draining and you are having pain. ) Catheter: Villasenor to leg bag Follow Up Care Please Follow Up With: Danny Cabrera MD Test Results: Test results from this visit will be discussed in further detail at your follow-up appointment, if applicable. Pending Tests Upon Discharge: none. 05/23/21 the K was stable to 4.1 of the potassium supplement and the HGB is stable at 12.9. 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 You have had a stroke at a relatively young age. It is very important to have regular follow up with your PCP to make sure everything that can be done to prevent another stroke is being done. You have had high blood pressure and high cholesterol for a long time. These 2 diseases are silent killers. Most people have no symptoms until they have had a stoke or a heart attack. This is why it is important to follow up with the PCP.......to practise good health maintenance. 2. You no longer have high BP because the type of stroke you had causes the autonomic nervous system to malfunction and this leads to dizziness when you stand up, fast heart rates, trouble emptying your bladder, constipation and sexual dysfunction. Do NOT stop taking your medications if you are having any of these problems. DO discuss any adverse reactions with your PCP before taking matters into your own hands. 3. Fortunately the double vision and the hiccups have resolved. Hopefully the trouble with urine retention will resolve over the next few months also. If there is traction on the catheter it can irritate the lining of the urethra and lead to blood in the urine. This is not uncommon and should not alarm you. If the urine is dark red, you are having clots in the urine or you have pain you should go to the ER or call your PCP or Dr. Smallwood. When you can not empty your bladder or if you get constipated it will affect other parts of the autonomic nervous system and it causes a big increase in BP and HR and it puts you at risk for another stroke. 4. We had you on a medication in the rehab unit for anxiety control. I am giving you a prescription to hold onto so if you find you need it you can get the prescription filled. You do not have to take this medication at home if you do not want to. 5. There are certain goals to keep in mind when we are trying to prevent another stroke. The BP should be less than 135/80. That is not a problem for you at this time. Your BP is still dropping when you stand up and we do not want to make this worse. The LDL is the bad cholesterol and in people who have had a stroke the LDL needs to be less than or equal to 70. Your LDL was 195. this not only puts you at risk for aother stroke but, also for a heart attack. You HDL (good cholesterol) is 51 and that is good for a male.....we like to see it > 40. Regular exercise helps to increase the HDL. The HGBA1C should be less than 7. You are what we call prediabetic. This means that your HGBA1 C is above normal but, you are not yet diabetic, you are at risk for diabetes. The highest normal HGBA1C is 5.6 and your HGBA1C is 5.9. If you lose some weight and exercise regularly you will likely never become diabetic. Do not start sm oking and limit exposure to second hand smoke. 6. You should have your cholesterol and a liver profile checked in another 4-6 weeks to make sure the cholesterol is adequately controlled and that you are not having any adverse reaction to the Lipitor (atorvastatin). 7. You are Vitamin D deficient. Vitamin D comes from the sun and we do not see the sun often in [place], [place] in the winter. vitamin D is essential for your body to absorb calcium. It is cheaper when you buy it OTC at the pharmacy than getting a prescription os I did not give you a prescription. Ask the pharmacist about which product is appropriate for you. 8. I hope that you take this very seriously and start to take better care of yourself. You are a young man and you recently retired. This is supposed to be your nicholas years and you want to be able to enjoy them and not be restricted due to deficits from a stroke. Not everyone gets back to their baseline after a stroke, I hope you do. 9. If you have any questions after you leave rehab please feel free to call me. Office: [phone] . Discharge Orders/Prescriptions Prescriptions: New buspirone 5 mg Tablet 5 mg PO TID Qty: 90 RF: 0 tamsulosin 0.4 mg Capsule 0.4 mg PO 1700 Qty: 30 RF: 0 cholecalciferol (vitamin D3) 25 mcg (1,000 unit) Tablet 25 mcg PO DAILY Qty: 0 RF: 0 Continued albuterol sulfate [Ventolin HFA] 1 INHALER inhaler 2 puff inhalation Q6H PRN PRN (Reason: Sob &/Or Wheezing) RF: 0 aspirin 81 mg tablet,chewable 81 mg PO DAILY RF: 0 atorvastatin 80 mg tablet 80 mg PO QHS Qty: 30 RF: 0 clopidogrel 75 mg tablet 75 mg PO DAILY Qty: 30 RF: 0 Discontinued fluticasone propion-salmeterol [Advair Diskus] 1 PUFF inhaler 1 puff inhalation BID RF: 0 meclizine [Antivert] 25 mg Tablet 25 mg PO BID RF: 0 chlorpromazine [Thorazine] 25 mg Tablet 25 mg PO Q4H PRN (Reason: Hiccups) RF: 0 Referrals / Follow Up: Care Physician,No Primary [Primary Care Provider] - Disposition Disposition (needs filled in before D/C Order can be placed): Home, Self Care
[2021-05-22 17:00] VITALS: BMI 34.6
--- NOTE | 2021-05-22 17:14 | PCM.DC.SUM ---
Providers Date of Admission: 05/05/21 Date of Discharge: 05/24/21 Primary Care Physician: Dr. Danny Cabrera Consultations 05/18/21 11:04 Consult: Urology Routine Consulting Provider: Sukumar Smallwood Reason for Consult: urinary retention EMERGENT Consult: No MD Notified: Yes Date Notified: 05/18/21 Time Notified: 11:05 Method of Notification: Verbal Reason For Visit: CVA Diagnosis Discharge Diagnosis (1) Physical debility: Status: Acute Code(s): R53.81 - Other malaise (2) Occlusion of left vertebral artery: Status: Acute Code(s): I65.02 - Occlusion and stenosis of left vertebral artery (3) Stroke, Wallenberg's syndrome: Status: Acute Code(s): G46.3 - Brain stem stroke syndrome (4) Dysautonomia: Status: Acute Code(s): G90.1 - Familial dysautonomia [Kong-Day] (5) Urine retention: Status: Acute Code(s): R33.9 - Retention of urine, unspecified (6) Diplopia: Status: Resolved Code(s): H53.2 - Diplopia (7) Glucose intolerance (impaired glucose tolerance): Status: Chronic Code(s): R73.02 - Impaired glucose tolerance (oral) (8) Anxiety about health: Status: Acute Code(s): F41.8 - Other specified anxiety disorders (9) HTN (hypertension): Status: Chronic Code(s): I10 - Essential (primary) hypertension Qualifiers: Hypertension type: primary hypertension Qualified Code(s): I10 - Essential (primary) hypertension (10) Hematuria: Status: Acute Code(s): R31.9 - Hematuria, unspecified Qualifiers: Hematuria type: unspecified type Qualified Code(s): R31.9 - Hematuria, unspecified (11) Orthostatic hypotension: Status: Acute Code(s): I95.1 - Orthostatic hypotension (12) Tachycardia: Status: Acute Code(s): R00.0 - Tachycardia, unspecified (13) Intractable singultus: Status: Resolved Code(s): R06.6 - Hiccough (14) GERD (gastroesophageal reflux disease): Status: Chronic Code(s): K21.9 - Gastro-esophageal reflux disease without esophagitis Qualifiers: Esophagitis presence: esophagitis presence not specified Qualified Code(s): K21.9 - Gastro-esophageal reflux disease without esophagitis (15) Grade I diastolic dysfunction: Status: Chronic Code(s): I51.89 - Other ill-defined heart diseases (16) LVH (left ventricular hypertrophy): Status: Chronic Code(s): I51.7 - Cardiomegaly (17) HLD (hyperlipidemia): Status: Chronic Code(s): E78.5 - Hyperlipidemia, unspecified Plan: DC to home. OP PT at [facility]. Follow up with Dr. Cabrera for PCP and with Dr. Smallwood for urine retention. Medications at Discharge Home Medications albuterol sulfate [Ventolin HFA] 2 puff INHALATION Q6H PRN PRN 10/28/14 aspirin 81 mg PO DAILY 05/05/21 atorvastatin 80 mg PO QHS #30 tab 05/22/21 buspirone 5 mg PO TID #90 tab 05/22/21 cholecalciferol (vitamin D3) 25 mcg PO DAILY #0 tab 05/22/21 clopidogrel 75 mg PO DAILY #30 tab 05/22/21 tamsulosin 0.4 mg PO 1700 #30 cap 05/22/21 Hospital Course Operations None Procedures - (straight catheterizations and insertion of a Villasenor catheter. ) Summary of Care Provided Minutes Spent on Discharge: 45 Hospital Course: Nahid Simon is a 66 YO male who presented to the ER at [facility] on 05/03/2021 complaining of awakening that morning feeling lightheaded and experiencing occipital cephalgia. The symptoms got progressively worse throughout the day and after dinner he had emesis and so he came to the emergency department. Stat CT brain was normal. Chest x-ray was unremarkable. MRI of the brain done on 05/04/2021 showed a 1 cm area of restricted diffusion involving the left paramedian medulla consistent with acute infarction. MRA showed left distal vertebral artery occlusion. Transthoracic echocardiogram showed mild concentric left ventricular hypertrophy with normal left ventricular systolic function. There was stage I diastolic dysfunction present and there were no regional wall motion abnormalities. Bubble contrast study was negative for a right to left interatrial shunt. No significant valvular heart disease. He went on to develop additional sx including diplopia, weakness on the ipsilateral side, impaired temperature sense on the contralateral side, a feeling that he was falling to the left and hiccups. He was started on ASA, Plavix and a statin at admission to the hospital and consult with SOC was obtained. Significant lab included a HGBA1C of 5.9%, total cholesterol of 261, LDL of 195, normal TRIG and a HDL of 51. LFTs are within normal limits. He was seen by PT/OT/ST and acute rehab was recommended. He was transferred to the acute inpt rehab unit at [facility] on 05/05/21 for 3 hours of therapy daily to restore function at or near his prior level of function/independence. At admission he had intractable hiccups on Meclizine PRN and Thorazine. Since the etiology of the hiccups was central and due to the stroke he was started on Gabapentin and Thorazine and Meclizine were discontinued. He was also started on a PPI because he has GERD at night because he eats prior to lying down. The hiccups resolved. BP was very uncontrolled at presentation to the rehab unit and he was tachycardic. At 1 point the blood pressure was 188/119 and the heart rate was 101. The heart rate had been as high as 120. He was treated with an antihypertensive but, the BP remained elevated. Post void residuals were high and he was retaining urine. When the bladder was drained the HR and BP came down significantly. A UA was obtained and it was unremarkable. A Villasenor catheter was inserted and he was started on Flomax for suspected BPH. Orthostatic vital signs were ordered and he had symptomatic orthostasis. antihypertensives were discontinued and he continued to be orthostatic but, was only symptomatic in the AM when first arising. He continued to retain urine with the Flomax. 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 The etiology of the urine retention was likely neurogenic but, consult was obtained with Dr. Smallwood. He increased the Flomax and the following day he was dizzy, nauseated and unable to stand for most of the day. the dose was cut back to 0.4 mg daily which he tolerates. An appt was made for him to follow up with Dr. Smallwood in the office on Tuesday05/25/21. He refused to straight cath and so a Villasenor was inserted and attached to a leg bag at OH. The diplopia has resolved. He has occasional hiccups but not intractable, even off the Gabapentin. He no longer has nystagmus. He has a persistent decrease in Temperature sensation in the RUE. He did well with therapy. Prior to OH he was able to ambulate 619 feet with a wheeled walker at standby assist on various surfaces. He had no episodes of left trunk lean with ambulation. He was able to a send/descend 8 stairs with 2 handrails at standby assist. He was independent with eating and grooming. He was supervision/set up for bathing and independent with upper and lower body dressing. He was discharged from prior to OH. Dysphagia persisted until the hiccups were controlled. While in rehab he was offered COVID vaccine and Flu vaccine but refused. Lab at discharge showed a hemoglobin of 12.9 which was stable. Potassium was stable at 4.1 off potassium supplements. Nahid had not seen a physician in many years and thought himself healthy. I suspect he has had uncontrolled HTN in the past because he has LVH and diastolic dysfunction. His LDL was 195 and he is a former smoker. He is also prediabetic with a HGBA1C of 5.9. He was seen by the swimming coach and instructed in a low salt, low fat, carbohydrate controlled diet. Wt loss was encouraged. He was educated about the risk factors for stroke and also on how to prevent another stroke. He was discharged on 05/24/21 and he elected to F/U with Dr. Cabrera for his PCP. He has an appt on 05/25/[address] Smallwood. He should have a lipd panel and a liver panel in another 4 weeks since he is now on a high dose Statin. He will also need to follow up with neurology. Nahid was angry/belligerent at OH with his and the nurse because he was prescribed 6 medications and he did not want to follow up with doctors. I suspect he will be non-compliant with medications and follow up and this will put him at risk for future strokes and possiblyt cardiac events. Physical Exam Const alert, oriented x3, no apparent distress and well nourished Constitutional Narrative: obese General Appearance: cooperative and well developed HEENT normocephalic, head/scalp atraumatic and moist oral mucous membranes Eyes PERRL and EOMs intact bilaterally Eyes Narrative: Nystagmus with left gaze has resolved. Neck no lymphadenopathy, supple, no JVD and no carotid bruits Resp normal respiratory effort and clear to auscultation bilaterally Resp Narrative: No conversational dyspnea. Effort and Inspection: Negative for tachypneic or uses accessory muscles Auscultation: diminished lung sounds Cardio regular rate, regular rhythm, S1 normal heart sound, S2 normal heart sound, no murmurs and no gallops Cardio Narrative: Gets tachycardic when standing and exerting himself due to persistent orthostatic hypotension. GI normal to inspection, nondistended, normoactive bowel sounds, soft to palpation and non-tender GI Narrative: no abdominal bruits Extremity normal capillary refill Extremity Narrative: Has mild edema of the ankles that is controlled by TINA hose. No calf tenderness. General Extremity: Negative for clubbing or cyanosis Skin General Skin Exam: no breakdown Rashes: no rashes Wounds: Negative for wounds noted Neuro CN's II-XII intact bilaterally and no focal motor deficits Neuro Narrative: Impaired temperature sense on the RUE. Loses balance when trying to ambulate without the walker. Nystagmus has resolved. Hiccups have resolved. Diplopia has resolved. Gets lightheaded when first standing in the AM. Continues to retain urine. Constipation has resolved. Speech: speech normal; Negative for speech abnormal Motor Exam: strength 5/5 throughout Psych denies suicidal ideation Psych Narrative: Anxious at times and agitated at times. Does not want to have to take medications. Refuses the COVID vaccine. Frustrated that he has had a stroke. Angry with his and short tempered. Whenever I try and educate his answer is usually I know and I am not sure he is really listening because I have had to explain several times why urine retention is a big problem. Thought Content: No homicidality Weight / BMI Weight Weight: 257 lb 7.999 oz Body Mass Index (BMI) 34.6 ABG / Lab / Microbiology Data Result Diagrams: 05/23/21 19:05 Microbiology: Microbiology 05/12/21 11:17 Urine, Clean Catch Urine Culture - Final Culture exhibits no growth. 05/11/21 19:10 Stool Stool Occult Blood (SJ) - Final 05/06/21 00:00 Urine Catheter - Villasenor Urine Culture - Final Culture exhibits no growth. D/C Instructions Discharge Diet: Low fat / Low cholesterol and 4000 mg Sodium Diet Weight Bearing Status: Full weight bearing Keep extremity elevated above heart level: Legs Call your doctor if you observe: Fever of 101 or Higher, Inability to have a bowel movement, Shortness of breath, Fainting spells, Swelling in the ankles, Chest pain, Prolonged hiccupping, Increased palpitations (irregular heartbeat), Calf discomfort and - (If the urine is dark red or if the Villasenor is not draining and you are having pain. ) Catheter: Villasenor to leg bag Pending Tests Upon Discharge: none Please Follow Up With: Danny Cabrera MD Meaningful Use Info Meaningful Use Diagnoses (Choose all that apply): Ischemic CVA CVA Therapy Assessed for PT,OT and/or ST?: Yes Ischemic Stroke Antithrombotic order at d/c?: Yes Dx of Atrial fib/flutter?: No Anticoagulant at discharge?: No Reason anticoagulant not ordered: Treatment not Indicated Statins at discharge?: Yes Primary Dx Acute Ischemic CVA?: Yes IV tPA ordered during stay?: No Reason IV t-PA not ordered: Treatment not Indicated Discharge Plan Admission Admit Date/Time: 05/05/21 15:10 Primary Reason for Your Visit: debility due to L medullary CVA Attending Provider: Catrina Pizano Primary Care Provider: Care Physician,No Primary Consulting Providers: Sukumar Smallwood Instructions Patient Instructions: Intimacy After Stroke, Preparing Your Home After Stroke, Healthy Lifestyle to Prevent ..., Orthostatic Hypotension Additional Instructions / Restrictions: 1. You have had a stroke at a relatively young age. It is very important to have regular follow up with your PCP to make sure everything that can be done to prevent another stroke is being done. You have had high blood pressure and high cholesterol for a long time. These 2 diseases are silent killers. Most people have no symptoms until they have had a stoke or a heart attack. This is why it is important to follow up with the PCP.......to practise good health maintenance. 2. You no longer have high BP because the type of stroke you had causes the autonomic nervous system to malfunction and this leads to dizziness when you stand up, fast heart rates, trouble emptying your bladder, constipation and sexual dysfunction. Do NOT stop taking your medications if you are having any of these problems. DO discuss any adverse reactions with your PCP before taking matters into your own hands. 3. Fortunately the double vision and the hiccups have resolved. Hopefully the trouble with urine retention will resolve over the next few months also. If there is traction on the catheter it can irritate the lining of the urethra and lead to blood in the urine. This is not uncommon and should not alarm you. If the urine is dark red, you are having clots in the urine or you have pain you should go to the ER or call your PCP or Dr. Smallwood. When you can not empty your bladder or if you get constipated it will affect other parts of the autonomic nervous system and it causes a big increase in BP and HR and it puts you at risk for another stroke. 4. We had you on a medication in the rehab unit for anxiety control. I am giving you a prescription to hold onto so if you find you need it you can get the prescription filled. You do not have to take this medication at home if you do not want to. 5. There are certain goals to keep in mind when we are trying to prevent another stroke. The BP should be less than 135/80. That is not a problem for you at this time. Your BP is still dropping when you stand up and we do not want to make this worse. The LDL is the bad cholesterol and in people who have had a stroke the LDL needs to be less than or equal to 70. Your LDL was 195. this not only puts you at risk for aother stroke but, also for a heart attack. You HDL (good cholesterol) is 51 and that is good for a male.....we like to see it > 40. Regular exercise helps to increase the HDL. The HGBA1C should be less than 7. You are what we call prediabetic. This means that your HGBA1 C is above normal but, you are not yet diabetic, you are at risk for diabetes. The highest normal HGBA1C is 5.6 and your HGBA1C is 5.9. If you lose some weight and exercise regularly you will likely never become diabetic. Do not start smoking and limit exposure to second hand smoke. 6. You should have your cholesterol and a liver profile checked in another 4-6 weeks to make sure the cholesterol is adequately controlled and that you are not having any adverse reaction to the Lipitor (atorvastatin). 7. You are Vitamin D deficient. Vitamin D comes from the sun and we do not see the sun often in [place] in the winter. vitamin D is essential for your body to absorb calcium. It is cheaper when you buy it OTC at the pharmacy than getting a prescription os I did not give you a prescription. Ask the pharmacist about which product is appropriate for you. 8. I hope that you take this very seriously and start to take better care of yourself. You are a young man and you recently retired. This is supposed to be your nicholas years and you want to be able to enjoy them and not be restricted due to deficits from a stroke. Not everyone gets back to their baseline after a stroke, I hope you do. 9. If you have any questions after you leave rehab please feel free to call me. Office: [phone] . Discharge Orders/Prescriptions Prescriptions: New buspirone 5 mg Tablet 5 mg PO TID Qty: 90 RF: 0 tamsulosin 0.4 mg Capsule 0.4 mg PO 1700 Qty: 30 RF: 0 cholecalciferol (vitamin D3) 25 mcg (1,000 unit) Tablet 25 mcg PO DAILY Qty: 0 RF: 0 Continued albuterol sulfate [Ventolin HFA] 1 INHALER inhaler 2 puff inhalation Q6H PRN PRN (Reason: Sob &/Or Wheezing) RF: 0 aspirin 81 mg tablet,chewable 81 mg PO DAILY RF: 0 atorvastatin 80 mg tablet 80 mg PO QHS Qty: 30 RF: 0 clopidogrel 75 mg tablet 75 mg PO DAILY Qty: 30 RF: 0 Discontinued fluticasone propion-salmeterol [Advair Diskus] 1 PUFF inhaler 1 puff inhalation BID RF: 0 meclizine [Antivert] 25 mg Tablet 25 mg PO BID RF: 0 chlorpromazine [Thorazine] 25 mg Tablet 25 mg PO Q4H PRN (Reason: Hiccups) RF: 0 Referrals / Follow Up: Care Physician,No Primary [Primary Care Provider] - Disposition Disposition (needs filled in before D/C Order can be placed): Home, Self Care Charges/Coding Visit Charges Inpatient E&M: 44701 Disch Hosp
[2021-05-22] MEDS: Tamsulosin HCl 0.4 MG Capsule PO (18:14)
[2021-05-22 19:50] VITALS: BP 117/88; PULSE 82; RESP 18; TEMP 36.7; O2SAT 96
[2021-05-22] MEDS: Atorvastatin Calcium 80 MG Tablet PO (21:10)
[2021-05-23] MEDS: busPIRone 5 MG Tablet PO ×3 (04:48→21:47)
[2021-05-23] MEDS: Albuterol Sulfate 8 gm Inhaler (60 puffs) 2 PUFF INHALATION ×3 (04:48→21:47)
[2021-05-23 06:00] VITALS: BP 114/78; BP 130/80; BP 144/74; PULSE 107; PULSE 71; PULSE 92
[2021-05-23 08:00] VITALS: BP 122/74; PULSE 68; RESP 18; TEMP 36.8; O2SAT 96
[2021-05-23] MEDS: Arthritis Pain Compound 60 CLICK TUBE TOPICAL ×2 (08:14→21:47)
[2021-05-23] MEDS: Potassium Chloride Oral Tablet 20 MEQ PO (08:14)
[2021-05-23] MEDS: Clopidogrel Bisulfate 75 MG Tablet PO (08:14)
[2021-05-23] MEDS: Aspirin 81 MG TAB.CHEW PO (08:14)
[2021-05-23] MEDS: Cholecalciferol (VIT D3) 25 MCG TABLET (1,000 UNITS) PO (08:17)
[2021-05-23 13:33] VITALS: BMI 34.6
[2021-05-23] MEDS: Tamsulosin HCl 0.4 MG Capsule PO (16:37)
[2021-05-23] MEDS: Acetaminophen 325 MG Tablet 650 MG PO (18:56)
[2021-05-23 19:13] LABS: Hematocrit 41.5 % (40-54); Hemoglobin 12.9 g/dL (13.0-16.5)
[2021-05-23 19:53] LABS: Potassium 4.1 mmol/L (3.5-5.1)
[2021-05-23 20:06] VITALS: BP 122/86; PULSE 79; RESP 18; TEMP 37; O2SAT 97
[2021-05-23] MEDS: Atorvastatin Calcium 80 MG Tablet PO (21:47)
[2021-05-24 00:34] VITALS: BMI 34.6
[2021-05-24] MEDS: Acetaminophen 325 MG Tablet 650 MG PO (01:05)
[2021-05-24 06:00] VITALS: BP 107/80; BP 129/84; BP 132/95; PULSE 100; PULSE 67; PULSE 78
[2021-05-24] MEDS: busPIRone 5 MG Tablet PO (06:07)
[2021-05-24] MEDS: Albuterol Sulfate 8 gm Inhaler (60 puffs) 2 PUFF INHALATION (06:08)
[2021-05-24] MEDS: Clopidogrel Bisulfate 75 MG Tablet PO (07:56)
[2021-05-24] MEDS: Aspirin 81 MG TAB.CHEW PO (07:56)
[2021-05-24] MEDS: Potassium Chloride Oral Tablet 20 MEQ PO (07:56)
[2021-05-24] MEDS: Arthritis Pain Compound 60 CLICK TUBE TOPICAL (07:56)
[2021-05-24] MEDS: Cholecalciferol (VIT D3) 25 MCG TABLET (1,000 UNITS) PO (07:56)
[2021-05-24 09:00] VITALS: BP 119/84; PULSE 60; RESP 16; TEMP 36.3; O2SAT 97
[2021-05-24 10:00] VITALS: BMI 34.6
[2021-05-24 11:45] VITALS: BP 119/84; PULSE 60; RESP 16; TEMP 36.3; O2SAT 97
--- NOTE | 2021-05-24 11:45 | NURSING ---
Discharge instructions given to patient and . Patient became belligerent yelling at this nurse and his when this nurse went over his follow up appointments. He told this nurse I am pissing him off and why does he have to follow up with these Doctors. Patient then told this nurse my medication list I reviewed for him to take at home was false and that he got a message from Guy that he only has 2 pills that he needs to pick up driver and not 20. This nurse told patient he exaggerated that number and that this nurse went over about 6 medications that he will need to take at home.
== END 2021-05-24 11:45 | disposition home or self-care (01) | DRG 57 ==
PROVIDERS: Admitting Provider Internal Medicine; Visit Provider Internal Medicine
DX: I69.393 Ataxia following cerebral infarction (principal); I69.392 Facial weakness following cerebral infarction; I69.398 Other sequelae of cerebral infarction; H53.2 Diplopia; E66.9 Obesity, unspecified; Z68.34 Body mass index [BMI] 34.0-34.9, adult; J45.909 Unspecified asthma, uncomplicated; I10 Essential (primary) hypertension; G90.1 Familial dysautonomia [Riley-Day]; G46.3 Brain stem stroke syndrome; E78.5 Hyperlipidemia, unspecified; R06.6 Hiccough; R73.03 Prediabetes; R31.9 Hematuria, unspecified; R33.9 Retention of urine, unspecified; F41.9 Anxiety disorder, unspecified; K21.9 Gastro-esophageal reflux disease without esophagitis; Z79.899 Other long term (current) drug therapy; Z79.02 Long term (current) use of antithrombotics/antiplatelets; Z87.891 Personal history of nicotine dependence
CPT/HCPCS: 36415; 80048; 81001; 82274; 82306; 82570; 82962; 83735; 83930; 83935; 84132; 84300; 85014; 85018; 85025; 87086; 92526; 92610; 94762; 97110; 97112; 97116; 97162; 97166; 97530; 97535; 97802; J7030; A4216

== ENCOUNTER 2021-07-02 10:00 | Outpatient (RCR) | payer MEDICARE, SELFPAY ==
--- NOTE | 2021-06-08 11:34 | HP.OTEVAL ---
Patient's Visit Information LINO DRAKE is a 66 year old M, referred to Occupational Therapy by Dr. Catrina Pizano DO, with a diagnosis of s/p CVA- decline in coordination. Date of Evaluation: 06/08/21 Occupational Therapist: Suzette Whitt - Subjective Pt had stroke on May 03 2021, he was transferred to the rehab unit on 05/05 and d/c'd 05/24. Pt reports things just seem to be going slow at home. Pt reports that his balance is very off on some days- he does not believe that his vision is part of it. He is reporting that his strength and UB coordination are back to baseline- he doesn't have any concerns with strength; he reports he is ind. w/ ADLS. - ADLs Comments: Pt is ind. w/ ADLS - ROM Shoulder: BUE WFL; slight pain and end range flexion d/t arthritis Elbow: WFL Forearm: WFL Wrist: WFL ROM Comments: able to make composite fist - Strength Shoulder: R 4+/5 L5/5 Elbow: R 4+/5 L 5/5 Forearm: R 4+/5 L 5/5 Wrist: R 4+/5 L 5/5 Web Press Roll Tender: R 93# L 120# Tripod Pinch: R 20# L 13# - Sensation Sensation Comments: slight N/T in L hand but has been there fore long time - Quick DASH-Disab of Arm,Shoulder& Hand Quick DASH Score: 15.9075 - Rehabilitation General Assessment: Pt presents s/p CVA; he reports that he is completing daily tasks independently. He states his strength and FM coordination is adequate. He is most concerned with his balance. Based on objective and subjective information, pt does not demonstrate need for OT at this time. - Visit Plan General Plan: Pt does not demonstrate need for OT services at this time; OT explained role and pt agrees he would like to focus his time with Physical therapy. TEXT: Thank you for the opportunity to evaluate your patient. For Medicare and Medicare HMO plans, please review the plan of care and approve it. It will need to be FAXED BACK to us at [phone] for Medicare purposes. Please let me know if there are questions or concerns regarding this plan of care. Physician Signature: Date:
--- NOTE | 2021-07-02 09:52 | HP.PTEVAL_ITS ---
Patient's Visit Information LINO DRAKE is a 66 year old M referred to Physical Therapy by Dr. Catrina Pizano DO with a diagnosis of Stroke, decline in coordination. Date of Evaluation: 06/08/21 Physical Therapist: Santiago Lange, PT, Cert MDT, OCS - Visit Plan Frequency: 2x /Week Duration: 4 Weeks Plan: Improve pt's endurance and balance. Focus on dynamic balance with the goal of eventually ambulating without SPC. Pt able to tolerate balance ac tivities, but fatigues quickly. - Subjective Pt presents to PT with a history of a left sided stroke on 05/03/21. He was discharged from inpatient rehab on 05/24/21. Pt states his balance is off, and he fatigues quickly. Pt reports he has not had any falls, but has had many close calls. He states if he moves his head too quickly or stands up fast he will lose his balance. Pt states picking objects up off the floor will cause loss of balance. Pt is ambulating with SPC in the community, but during home ambulation will walk without cane. At home he is able to function, and states he can perform all ADL's including stairs. He does note sometimes in the morning he will experience double vision, but this has not caused any falls. Pt states he often loses his balance most when turning. Pt goals for therapy are to improve balance and endurance. - Objective STRENGTH: Right hip flexors 4+/5, IR 4+/5, ER5/5, knee flexors: 5/5, extensors 5 /5, ankle DF 5/5, PF 5/5 ; Left: hip flexors 4+/5, IR 4+/5, ER5/5, knee flexors: 5/5, extensors 5/5, ankle DF 5/5, PF 5/5. ROM: WFL. NEURO: light touch intact; reflexes patellar 2+, achilles 2+. GAIT: right foot slight eversion during stance phase, ambulation using SPC. COORDINATION: heel to dias R& L normal - Balance/Special Test Scores Functional Gait Assessment Score: 21 % Disability: 30.0000 CATSIB Score (Max score 120 seconds): 120 6 Minute Walk Test: 710ft with SPC. - Goals Goal 1:: Pt will be independent with HEP Goal Time Frame: 2-4 Weeks Goal 2:: LTG: Pt will improve 6MWT to 800ft. Goal Time Frame: 2-4 Weeks Goal 3:: LTG: Pt will improve FGA to 26/30 to indicate improved dynamic balance. Goal Time Frame: 2-4 Weeks Goal 4:: STG: Pt will be able to bend over and pick objects up off the floor without LOB to improve ability to function at home. Goal Time Frame: 2-4 Weeks Goal 5:: LTG: Pt will ambulate in the community with no assistive device. Goal Time Frame: 4-6 Weeks - Rehabilitation Potential Physical Therapy Diagnosis: imbalance, decreased endurance Rehabilitation Potential: Good - Anticipated Interventions Patient/Client Instruction: Educate patient on: Condition, Plan of Care, Benefits of Fitness Program For the Purpose of:: To improve performance and independence with ADL's, To improve ability of physical actions for home/community/work/leisure, To improve gait and locomotor functions, To improve endurance, To improve balance, To improve safety, To improve health and function, To improve ability to perform tasks related to life management Therapeutic Exercise to Include: Strength training, Endurance training, Balance training, Gait and locomotor training For the Purpose of:: To improve muscle performance and motor function, To improve ability to perform ADL's, To increase tolerance to activity/c ondition/position, To improve ability of physical actions for home/community/work/leisure, To improve gait and locomotor functions, To improve endurance, To improve balance, To improve safety with gait, To improve safety, To improve health and function, To improve ability to perform tasks related to life management Functional Training to Include: Gait training For the Purpose of:: To improve endurance, To improve balance Assistive Devices: Cane For the Purpose of:: To improve endurance, To improve balance, To improve safety with gait Thank you for the opportunity to evaluate your patient. For Medicare and Medicare HMO plans, please review the plan of care and approve it. It will need to be FAXED BACK to us at [phone] for Medicare purposes. For Medicare only, by signing this I certify the plan of care. Please let me know if there are questions or concerns regarding this plan of care. Physician Signature: Date:
== END 2021-07-02 19:00 | disposition home or self-care (01) ==
LOC: PT 10:00
PROVIDERS: Referring Provider Internal Medicine; Visit Provider Internal Medicine
DX: I69.398 Other sequelae of cerebral infarction; R27.8 Other lack of coordination
CPT/HCPCS: 97110; 97161; 97165

== ENCOUNTER 2021-08-10 12:55 | Outpatient (CLI) | payer MEDICARE, OTHER, SELFPAY ==
[2021-08-10 15:46] LABS: ALB/GLOB Ratio 0.7 RATIO (0.9-2.4); AST(SGOT) 13 U/L (15-37); Alanine Aminotransfer ALT/SGPT 27 U/L (16-61); Albumin, Serum 3.1 g/dL (3.2-5.0); Alkaline Phosphatase 139 U/L (45-117); Anion Gap 4 (5-15); BUN 12 mg/dL (7-18); BUN/Creat Ratio 10.3 RATIO (10-20); Calcium,Total 8.9 mg/dL (8.5-10.1); Chloride 105 mmol/L (98-107); Cholesterol 116 mg/dL (200); Creatinine, Serum 1.17 mg/dL (0.70-1.30); EST Glomerular Filtration Rate 66 mL/min (>60); Est Glom Filt Rate - Afr Amer 80 mL/min (>60); Globulin 4.2 g/dL (2.2-4.2); Glucose 127 mg/dL (74-106); High Density Lipoprotein 42 mg/dL; Potassium 3.9 mmol/L (3.5-5.1); Protein, Total 7.3 g/dL (6.4-8.2); Sodium Level 139 mmol/L (136-145); Triglycerides 163 mg/dL; Very Low Density Lipoprotein 33 mg/dL (5-40)
== END 2021-08-10 23:59 | disposition short-term general hospital (02) ==
LOC: MTLAB 12:58
PROVIDERS: PCP Internal Medicine; Referring Provider Internal Medicine; Visit Provider Internal Medicine
DX: I63.9 Cerebral infarction, unspecified (principal); E78.5 Hyperlipidemia, unspecified
CPT/HCPCS: 36415; 80053; 80061

== ENCOUNTER 2021-09-17 10:56 | Outpatient (CLI) | payer MEDICARE, OTHER, SELFPAY ==
--- NOTE | 2021-09-17 11:08 | ART_ITS ---
Reason For Study: absent pulses right foot Procedure A bilateral lower extremity continuous wave Doppler with analog waveform analysis and ankle brachial indexes. Left Segmental Pressures Left brachial= 157mmHg. Left posterior tibial artery = 181mmHg. Left dorsalis pedis artery = 167mmHg. The left dorsalis pedis waveforms are triphasic. The left posterior tibial artery waveforms are triphasic. Right Segmental Pressures Right brachial= 168mmHg. Right posterior tibial artery = 171mmHg. Right dorsalis pedis artery = 179mmHg. The right dorsalis pedis waveforms are triphasic. The right posterior tibial artery waveforms are triphasic. Indices The right ankle brachial index by the dorsalis pedis is 1.07. The right ankle brachial index by the posterior tibial artery is 1.02. The left ankle brachial index by the dorsalis pedis is .99. The left ankle brachial index by the posterior tibial artery is 1.08. VL/Ankle Brachial Index Interpretation Summary Normal right lower extremity PT and DP ankle-brachial index of 1.02 and 1.07 re spectively with triphasic Doppler waveforms Normal left lower extremity PT and DP ankle-brachial index of 1.08 and 0.99 res pectively with triphasic Doppler waveforms Ordering Physician: Candelario Cam Performed By: Gilles Jaquez RVShayy
== END 2021-09-17 23:59 | disposition home or self-care (01) ==
LOC: CVS 10:57
PROVIDERS: PCP Internal Medicine; Visit Provider Psychiatry & Neurology Neurology
DX: R09.89 Other specified symptoms and signs involving the circulatory and respiratory systems (principal)
CPT/HCPCS: 93922

== ENCOUNTER 2021-10-08 15:25 | Outpatient (CLI) | payer MEDICARE, OTHER, SELFPAY ==
[2021-10-08 17:04] LABS: ALB/GLOB Ratio 0.9 RATIO (0.9-2.4); AST(SGOT) 18 U/L (15-37); Alanine Aminotransfer ALT/SGPT 34 U/L (16-61); Albumin, Serum 3.4 g/dL (3.2-5.0); Alkaline Phosphatase 145 U/L (45-117); Anion Gap 2 (5-15); BUN 15 mg/dL (7-18); BUN/Creat Ratio 12.3 RATIO (10-20); CPK Total, Creatine Kinase 62 U/L (39-308); Calcium,Total 8.6 mg/dL (8.5-10.1); Chloride 107 mmol/L (98-107); Creatinine, Serum 1.22 mg/dL (0.70-1.30); EST Glomerular Filtration Rate 63 mL/min (>60); Est Glom Filt Rate - Afr Amer 77 mL/min (>60); Globulin 3.9 g/dL (2.2-4.2); Glucose 126 mg/dL (74-106); Potassium 3.9 mmol/L (3.5-5.1); Protein, Total 7.3 g/dL (6.4-8.2); Sodium Level 139 mmol/L (136-145)
== END 2021-10-08 23:59 | disposition home or self-care (01) ==
LOC: BIMLAB 15:26
PROVIDERS: PCP Internal Medicine; Referring Provider Internal Medicine; Visit Provider Internal Medicine
DX: I63.9 Cerebral infarction, unspecified (principal); M79.10 Myalgia, unspecified site
CPT/HCPCS: 36415; 80053; 82550

== ENCOUNTER → 2021-11-20 | Outpatient (CLI) | payer MEDICARE, OTHER, SELFPAY ==
--- NOTE | 2021-11-20 17:12 | STRESSREP_ITS ---
Stress Test Report Date: 11-20-2021 Procedure: Pharmacologic stress nuclear imaging study Indications: Wide-complex tachycardia/nonsustained ventricular tachycardia; CVA; hyperlipidemia; hypertension Consent: Per the patient Procedure: The patient underwent pharmacologic (Regadenoson 0.4mg ) evaluation with a peak heart rate of 86 beats per minute (55%predicted maximal heart rate) and a peak blood pressure of 168/90 mmHg. The baseline ECG demonstrated normal sinus rhythm. The peak pharmacologic ECG demonstrated no obvious ECG changes. There were no cardiac dysrhythmias pretest, during pharmacologic infusion, or recovery. There was no complaint of chest discomfort during pharmacologic infusion or recovery. The examination was discontinued secondary to completion of protocol. Impression: 1. Pharmacologic (Regadenoson) evaluation 2. Peak pharmacologic ECG with no obvious ECG changes. 3. There were no cardiac dysrhythmias pretest, during pharmacologic infusion, or recovery. 4. Nuclear images pending Myocardial perfusion imaging study: Technique: The patient was injected with 14.9 millicuries of technetium 99m Cardiolite and subsequently rest SPECT Cardiolite nuclear imaging was obtained in the horizontal long, vertical long, and short axis views. The patient underwent pharmacologic (Regadenoson) evaluation with a peak heart rate of 86 beats per minute (55% percent predicted maximal heart rate) and a peak blood pressure of 168/90 mmHg. The patient was injected with 45.0 millicuries of technetium 99m Cardiolite and subsequently stress SPECT Cardiolite nuclear imaging was obtained in the horizontal long, vertical long, and short axis views. A gated Cardiolite study at peak stress was obtained. Interpretation: Rest and stress SPECT Cardiolite nuclear imaging status post realignment, normalization, and attenuation correction demonstrate relative uniform tracer uptake and myocardial perfusion appearing within normal limits. There is end systolic thickening and brightening. The gated Cardiolite study demonstrates myocardial thickening and inward wall motion. The reported LVEF is 57%. Impression: 1. Rest and stress SPECT Cardiolite nuclear imaging demonstrate relative uniform tracer uptake and myocardial perfusion appearing within normal limits. 2. The gated Cardiolite study reports an LVEF of 57%. This note was generated with [employer]ation software. It may contain incorrect words, spelling, and punctuation that were not noted in checking the note before signing.
== END | disposition home or self-care (01) ==
LOC: CVS 06:59
PROVIDERS: PCP Internal Medicine; Referring Provider Internal Medicine Cardiovascular Disease; Visit Provider Internal Medicine Cardiovascular Disease
DX: I47.2 Ventricular tachycardia (principal); R94.31 Abnormal electrocardiogram [ECG] [EKG]
CPT/HCPCS: 78452; 93017; A9500; A4216; J2785

== ENCOUNTER → 2021-12-24 | Outpatient (CLI) | payer MEDICARE, OTHER, SELFPAY ==
[2021-12-24 15:28] LABS: Vitamin B12 308 pg/mL (211-911)
[2021-12-31 13:07] LABS: Free Kappa Light Chains 20.3 mg/L (3.3-19.4); Free Lambda Light Chains 18.1 mg/L (5.7-26.3)
[2021-12-31 18:30] LABS: Vitamin B1, Thiamine 171.6 nmol/L (66.5-200.0)
== END | disposition home or self-care (01) ==
LOC: MTLAB 13:11
PROVIDERS: PCP Internal Medicine; Referring Provider Psychiatry & Neurology Neurology; Visit Provider Psychiatry & Neurology Neurology
DX: G62.9 Polyneuropathy, unspecified (principal)
CPT/HCPCS: 36415; 82607; 82746; 83883; 84425

== ENCOUNTER → 2022-02-01 | Outpatient (CLI) | payer MEDICARE, OTHER, SELFPAY ==
[2022-02-01 14:52] LABS: Absolute Lymphocyte Count 1.87 X10^3/uL (0.83-4.51); Absolute Neutrophil Count 4.7 X10^3/uL (2.0-7.7); Basophil# 0.09 X10^3/uL; Basophil% 1.1 % (0-1); Eosinophil# 0.36 X10^3/uL; Eosinophils% 4.6 % (0-5); Hematocrit 44.6 % (40-54); Lymphocyte # 1.87 X10^3/ul (0.83-4.51); Lymphocyte % 23.8 % (19-41); Mean Corp Hgb Conc 31.4 g/dL (32-36); Mean Corpuscular Hgb 29.5 pg (27.0-32.0); Mean Corpuscular Volume 94.1 fL (80-94); Mean Platelet Vol. 10.3 fl (6.2-12.0); Monocyte# 0.81 X10^3/uL; Monocyte% 10.3 % (0-10); NRBC Flagged by Analyzer 0 % (0-5); Neutrophil # 4.66 X10^3/uL (2.7-7.7); Neutrophil % 59.4 % (47-70); Platelet Count 244 K/mm3 (150-450); RBC Distribution Width CV 13.5 % (11.6-14.6); Red Blood Count 4.74 M/mm3 (4.6-6.2); White Blood Count 7.9 K/mm3 (4.4-11.0)
[2022-02-01 15:29] LABS: PSA,Total - Annual Screen 1.88 ng/mL (0.00-4.00)
== END | disposition home or self-care (01) ==
LOC: LAB 14:28
PROVIDERS: PCP Internal Medicine; Visit Provider Urology
DX: I10 Essential (primary) hypertension (principal); Z12.5 Encounter for screening for malignant neoplasm of prostate
CPT/HCPCS: 36415; 84153; 85025; G0103

== ENCOUNTER → 2022-04-23 | Outpatient (CLI) | payer MEDICARE, OTHER, SELFPAY ==
[2022-04-23 13:04] LABS: Anion Gap 7 (5-15); BUN 10 mg/dL (7-18); BUN/Creat Ratio 8.6 RATIO (10-20); Calcium,Total 9.1 mg/dL (8.5-10.1); Chloride 104 mmol/L (98-107); Creatinine, Serum 1.16 mg/dL (0.70-1.30); EST Glomerular Filtration Rate 67 mL/min (>60); Est Glom Filt Rate - Afr Amer 81 mL/min (>60); Glucose 141 mg/dL (74-106); Potassium 4.1 mmol/L (3.5-5.1); Sodium Level 138 mmol/L (136-145)
[2022-04-23 14:40] LABS: Hemoglobin A1c 6.6 % (3.8-5.6)
== END | disposition home or self-care (01) ==
LOC: BIMLAB 09:54
PROVIDERS: PCP Internal Medicine; Referring Provider Internal Medicine; Visit Provider Internal Medicine
DX: I10 Essential (primary) hypertension (principal); R73.03 Prediabetes
CPT/HCPCS: 36415; 80048; 83036

== ENCOUNTER 2022-10-08 13:21 | Observation (INO) | payer MEDICARE, OTHER, SELFPAY ==
[2022-10-04 17:14] LABS: Hematocrit 43.7 % (40-54); Hemoglobin 13.1 g/dL (13.0-16.5); Mean Corpuscular Hgb 27.9 pg (27.0-32.0); Mean Platelet Vol. 10.3 fl (6.2-12.0); Platelet Count 266 K/mm3 (150-450); RBC Distribution Width CV 13.7 % (11.6-14.6); RBC Distribution Width SD 46.9 fl (35.1-43.9); White Blood Count 9.4 K/mm3 (4.4-11.0)
[2022-10-04 18:50] LABS: Anion Gap 3 (5-15); BUN 15 mg/dL (7-18); BUN/Creat Ratio 11.9 RATIO (10-20); Calcium,Total 8.9 mg/dL (8.5-10.1); Chloride 105 mmol/L (98-107); Creatinine, Serum 1.26 mg/dL (0.70-1.30); EST Glomerular Filtration Rate 61 mL/min (>60); Est Glom Filt Rate - Afr Amer 74 mL/min (>60); Glucose 125 mg/dL (74-106); Potassium 4.1 mmol/L (3.5-5.1); Sodium Level 138 mmol/L (136-145)
[2022-10-08] VITALS (8 sets, daily range): BP systolic 123–153; BP diastolic 68–95; PULSE 67–86; RESP 15–18; TEMP 36.1–37.3; O2SAT 92–100; BMI 38.9
--- NOTE | 2022-10-08 | PROS_PTH ---
PATIENT: LINO DRAKE LOC: MS3 U#:[id number] AGE/SX: 67/M ROOM: OH321 RE10/08/[address]: Dr. Sukumar Smallwood MD : [id number] BED: 1 DIS: 10/09/2022 SPEC #: [id number] RECD: 10/08/22 17:18 STATUS: GINA GUTIERRES #: [id number] JUAN CARLOS: 10/08/22 00:[address]: uSkumar Smallwood DEPT: SURGICAL PATHOLOGY RECD BY: Kiko Castillo ENTERED: 10/11/22 09:23 SP TYPE: TURP OTHR DR: Dr. Danny Cabrera MD Tissues: Prostate, NOS Procedures: Surgery Specimen Level IV HEADER OPERATION: Cysto, TUR prostate, Olympus PRE-OP DIAGNOSIS: BPH and obstruction TISSUE SUBMITTED: Prostate chips MICROSCOPIC DIAGNOSIS Prostate chips, transurethral resection: Benign prostatic hyperplasia, glandular and stromal type. Chronic inflammation, mild acute inflammation. JASON:aubrie 10/12/2022 MICROSCOPIC DESCRIPTION Slides are reviewed. GROSS DESCRIPTION Received is one container labeled with the patient's name and designated prostate chips. The specimen consists of multiple irregular fragments of pink-allen, rubbery, soft tissue that in aggregate weigh 32.1 gm and measure in aggregate 8.0 x 8.0 x 3.0 cm. Pet Nutrition Specialist tissue is submitted in ten cassettes. / JASON:aubrie 10/11/2022 TC:5 CPT: 61054
[2022-10-08] MEDS: Lactated Ringers 1,000 ML 15 ML IV (11:30)
--- NOTE | 2022-10-08 13:29 | HP.PCM_ITS ---
[facility] - General General Date of Service: 10/08/22 Chief Complaint: BPH with obstruction [facility] Narrative LINO DRAKE, is a 67 M who presents for transurethral resection of the prostate with BPH and obstruction and he has retention of urine with incomplete bladder emptying [facility] Medical History (Updated 10/01/22 @ 10:01 by Skyla Shetty) Allergic rhinitis Arthritis Asthma Borderline type 2 diabetes mellitus BPH (benign prostatic hyperplasia) Cancer Cardiology follow-up encounter Cerebrovascular disease CVA (cerebral vascular accident) Essential hypertension Former smoker Former tobacco use Gastric reflux GERD (gastroesophageal reflux disease) Grade I diastolic dysfunction High cholesterol History of echocardiogram History of edema History of Holter monitoring History of stress test HLD (hyperlipidemia) Hyperlipidemia Hypertension Hypertensive urgency LVH (left ventricular hypertrophy) Muscle pain Obesity Obesity (BMI 30-39.9) Occlusion of left vertebral artery Stroke, Wallenberg's syndrome Vomiting Wears glasses Home Medications aspirin 81 mg chewable tablet 81 mg PO DAILY heart health 05/05/21 [History Last Taken 09/30/22] cholecalciferol (vitamin D3) 25 mcg (1,000 unit) tablet 25 mcg PO DAILY #0 tabs 05/22/21 [Rx Last Taken Unknown] dutasteride 0.5 mg capsule 0.5 mg PO DAILY 06/02/21 [History Last Taken Unknown] atorvastatin 80 mg tablet 40 mg PO QHS Cholesterol #90 tabs 10/08/21 [Rx Last Taken Unknown] amlodipine 2.5 mg tablet 2.5 mg PO DAILY #90 tabs 04/23/22 [Rx Last Taken Unknown] epinephrine 0.125 mg/actuation aerosol inhaler (Primatene Mist) 1 puff inhalation Q6H PRN ASTHMA 10/01/22 [History Last Taken Unknown] ciprofloxacin HCl 500 mg tablet (Cipro) 500 mg PO BID #10 tabs 10/08/22 [Rx Last Taken Unknown] Allergy/AdvReac Type Severity Reaction Status Date / Time latex Allergy Rash Verified 10/01/22 09:46 Family History Mother HLD (hyperlipidemia) Hypertension Heart disease Myocardial infarction Father HLD (hyperlipidemia) Hypertension Heart disease Myocardial infarction Cancer Prostate Surgical History (Updated 10/01/22 @ 10:01 by Skyla Shetty) H/O inguinal hernia repair H/O ventral hernia repair Hx of appendectomy Hx of surgical procedure Social History household members: spouse Smoking Status: Former smoker Tobacco: How many years used: 10 Electronic Cigarette Use: not used second hand exposure: No alcohol intake: never substance use type: does not use caffeine: Yes Type: coffee Number of servings: 1 Vital Signs Vital Signs Vital Signs: 10/08/22 11:47 10/08/22 11:47 Temperature 98.5 F Temperature Source Temporal Pulse Rate 86 Respiratory Rate 16 Respiratory Pattern Normal Blood Pressure 153/95 H Blood Pressure Mean 114 Blood Pressure Source Monitor Blood Pressure Position Semi-Fowlers Blood Pressure Location Left Arm Pulse Ox 100 Oxygen Delivery Method Room Air Weight Weight: 133.9 kg Body Mass Index (BMI) 38.9 Results Lab / Micro Data Result Diagrams: 10/04/22 16:31 10/04/22 16:31
--- NOTE | 2022-10-08 13:30 | DCINST_ITS ---
Discharge Instructions Diet Discharge Diet: No restrictions, Light diet - advance as tolerated and Soft diet Activity Discharge Activity: Return to Normal Activity Dressing / Incision Call your doctor if your incision/area has: Sudden Increased Bleeding Follow Up Care Please Follow Up With: Sukumar Smallwood MD When: call for an appt in 3 weeks Test Results: Test results from this visit will be discussed in further detail at your follow- up appointment, if applicable. Discharge Plan Admission Primary Reason for Your Visit: fanta Attending Provider: Sukumar Smallwood Primary Care Provider: Danny Cabrera Instructions Patient Instructions: FANTA DAWSON Home Recovery Discharge Orders/Prescriptions Prescriptions: New ciprofloxacin HCl [Cipro] 500 mg tablet 500 mg PO BID Qty: 10 0RF Continued dutasteride 0.5 mg capsule 0.5 mg PO DAILY atorvastatin 80 mg tablet 40 mg PO QHS Qty: 90 2RF cholecalciferol (vitamin D3) 25 mcg (1,000 unit) Tablet 25 mcg PO DAILY Qty: 0 0RF Primatene Mist 0.125 mg/actuation Hfa Aerosol Inhaler 1 puff INHALATION Q6H PRN (Reason: ASTHMA) Rx Instructions: may repeat once after 1 minute amlodipine 2.5 mg tablet 2.5 mg PO DAILY Qty: 90 1RF Held aspirin 81 mg tablet,chewable 81 mg PO DAILY Hold Instructions: Resume on 10/22/22. Referrals / Follow Up: Danny Cabrera MD [Primary Care Provider] - Sukumar Smallwood MD [Med Staff - Active Staff] - Disposition Disposition (needs filled in before D/C Order can be placed): Home, Self Care
--- NOTE | 2022-10-08 15:13 | PCM.OPRPT ---
Report of Operation Date of Procedure: 10/08/22 Pre-Operative Diagnosis: BPH with obstruction chronic infections large bladder diverticulum Post-Operative Diagnosis: Same Surgery/Procedure Performed:: Transurethral resection of the prostate Description of Surgical Findings:: Indication this is a 67-year-old male with significant BPH with obstruction and significant blockage of the urinary channel he does have a large bladder tic diverticulum in the back of the bladder and today we will proceed with a transurethral resection of the prostate but its possible we may also have to repair the bladder diverticulum down the road if it still causing infections and problems. Patient was taken back to the operating room at a smooth induction of general anesthesia he was placed in dorsolithotomy position. Penis and testicles were prepped and draped in usual sterile fashion when I went into the bladder with a 26 [place]an flow continuous-flow resectoscope he had a lot of purulent thick urine look like infected urine. This was all drained out I looked inside the bladder and he had a large diverticulum in the posterior aspect of the bladder he did have also a very large prostate large median lobe and significant hypertrophy and obstruction of both sides of the prostate. I then switched over to the large resectoscope and I did a resection of the prostate we resected the median lobe resected the floor the prostate resected the right lobe of the prostate resected left lobe the prostate and then slowly very carefully resected back to to the apex of the prostate and the sphincter area and got all the tissue opened up at the end he had a sphincter was intact and he had a nice wide open channel all the way up to the prostate Ellik out all the chips obtained came good hemostasis we did a flow test he had adequate flow. And at this point a catheter was put into his bladder at first we used the silicone catheter but it kept clogging up so then went to a 22 [place]an three-way regular catheter and it was flowing very nicely. Patient anesthetic was reversed taken back to PACU in good condition explained to the family that I did a nice resection of the prostate it should be able to urinate much better the only question left is if we should do anything to his bladder diverticulum and we will see if that causes problems or if it stays stable we could always do observation of the bladder diverticulum or he may consider doing a diverticulectomy down the road if necessary. But today we finished the TURP and a nice resection Surgeon: Sukumar Smallwood Type of Anesthesia: General Drains: [address] Estimated Blood Loss (mL): 50 Admit VTE Documentation VTE Present on Admission: No VTE Mechan Device Prophylaxis: SCD's VTE Pharm Prophylaxis ordered?: No
[2022-10-08] MEDS: Ketorolac 15 MG/ML Vial IV ×2 (17:20→21:00)
[2022-10-08] MEDS: 0.9% Saline Lock 10 ML Syringe IV ×2 (17:20→21:01)
[2022-10-08] MEDS: Ciprofloxacin 400 MG/200 ML BAG 200 MG IV (20:28)
[2022-10-08] MEDS: Atorvastatin Calcium 40 MG Tablet PO (20:29)
[2022-10-08] MEDS: Docusate Sodium 100 MG Capsule 200 MG PO (20:29)
[2022-10-09 00:32] VITALS: BMI 38.9
[2022-10-09 03:00] VITALS: BP 120/62; PULSE 56; RESP 18; TEMP 37.1; O2SAT 95
[2022-10-09] MEDS: Ketorolac 15 MG/ML Vial IV ×2 (03:10→10:10)
[2022-10-09] MEDS: 0.9% Saline Lock 10 ML Syringe IV ×2 (03:10→10:10)
[2022-10-09 04:32] VITALS: BMI 38.9
--- NOTE | 2022-10-09 07:11 | PCM.PN.GU ---
Subjective Subjective Status post transurethral resection of the prostate he did have a very large prostate, he also has a large bladder diverticulum, this was not addressed during the surgery I did speak to him about it it is possible he may need to have it removed later on if it still causes problems we will see what happens, today we will remove the catheter as long as he can void okay can go home today without a catheter follow-up in the office about 3 weeks with me for checkup Objective Data Objective Data Vital Signs: Vital Signs Temp Pulse Resp BP Pulse Ox O2 Del Method O2 Flow Rate 98.7 F 56 L 18 120/62 95 Room Air 4 10/09/22 03:00 10/09/22 03:00 10/09/22 03:00 10/09/22 03:00 10/09/22 03:00 10/09/22 03:00 10/08/22 15:45 Oxygen Flow Rate (L/min) 4 Oxygen Delivery Method Room Air Weight: 133.9 kg Body Mass Index (BMI) 38.9 Intake & Output: Intake and Output for Last 24 Hours 10/07/22 10/08/22 10/09/22 23:59 23:59 23:59 Intake Total 2465 / 2465 0 / 0 Output Total 1400 / 1400 400 / 400 Balance 1065 / 1065 -400 / -400 Lab / Micro Data Result Diagrams: 10/04/22 16:31 10/04/22 16:31
[2022-10-09 07:30] VITALS: PULSE 80
[2022-10-09 07:43] VITALS: BP 127/80; PULSE 57; RESP 16; TEMP 36.6; O2SAT 95
[2022-10-09] MEDS: Docusate Sodium 100 MG Capsule 200 MG PO (07:46)
[2022-10-09] MEDS: Finasteride 5 MG Tablet PO (07:48)
[2022-10-09 10:05] VITALS: BP 121/75; PULSE 70
[2022-10-09] MEDS: amLODIPine 2.5 MG Tablet PO (10:10)
[2022-10-09] MEDS: Ciprofloxacin 400 MG/200 ML BAG 200 MG IV (10:10)
[2022-10-09 12:18] VITALS: BMI 38.9
[2022-10-09 12:30] VITALS: BP 115/65; PULSE 86; RESP 16; TEMP 37.1; O2SAT 96
== END 2022-10-09 15:33 | disposition home or self-care (01) ==
LOC: SDC 15:24 → MS3 15:24
PROVIDERS: Anesthesiology; Admitting Provider Urology; PCP Internal Medicine; Referring Provider Urology; Visit Provider Urology
PROC: (CPT 52601; principal; 2022-10-08 13:10)
DX: N40.1 Benign prostatic hyperplasia with lower urinary tract symptoms (principal); N32.3 Diverticulum of bladder; Z87.891 Personal history of nicotine dependence; N13.8 Other obstructive and reflux uropathy; Z79.82 Long term (current) use of aspirin; Z79.899 Other long term (current) drug therapy; R73.03 Prediabetes; I10 Essential (primary) hypertension; R31.9 Hematuria, unspecified; E66.9 Obesity, unspecified; E78.5 Hyperlipidemia, unspecified; R33.8 Other retention of urine; J45.909 Unspecified asthma, uncomplicated; Z68.38 Body mass index [BMI] 38.0-38.9, adult
CPT/HCPCS: 52601; 00914; 36415; 80048; 85027; 88305; 96365; 96366; 96375; 96376; 99221; J7050; J7120; A4216; G0378; J0744; J2405

== ENCOUNTER → 2022-10-25 | Outpatient (CLI) | payer MEDICARE, OTHER, SELFPAY ==
[2022-10-25 12:26] LABS: AST(SGOT) 17 U/L (15-37); Alanine Aminotransfer ALT/SGPT 23 U/L (16-61); Albumin, Serum 3.4 g/dL (3.2-5.0); Alkaline Phosphatase 140 U/L (45-117); Cholesterol 179 mg/dL (200); Globulin 3.6 g/dL (2.2-4.2); High Density Lipoprotein 45 mg/dL; Triglycerides 138 mg/dL; Very Low Density Lipoprotein 28 mg/dL (5-40)
[2022-10-25 12:38] LABS: Hemoglobin A1c 6.4 % (3.8-5.6)
== END | disposition home or self-care (01) ==
LOC: BIMLAB 10:49
PROVIDERS: PCP Internal Medicine; Visit Provider Internal Medicine
DX: R73.03 Prediabetes (principal); I63.9 Cerebral infarction, unspecified; I10 Essential (primary) hypertension
CPT/HCPCS: 36415; 80061; 80076; 83036

== ENCOUNTER → 2023-08-01 | Outpatient (CLI) | payer MEDICARE, OTHER, SELFPAY ==
[2023-08-01 17:00] LABS: Absolute Lymphocyte Count 1.72 X10^3/uL (0.83-4.51); Absolute Neutrophil Count 4.2 X10^3/uL (2.0-7.7); Basophil# 0.11 X10^3/uL; Basophil% 1.5 % (0-1); Eosinophil# 0.28 X10^3/uL; Eosinophils% 3.9 % (0-5); Hematocrit 45.1 % (40-54); Hemoglobin 13.9 g/dL (13.0-16.5); Lymphocyte # 1.72 X10^3/ul (0.83-4.51); Mean Corp Hgb Conc 30.8 g/dL (32-36); Mean Corpuscular Hgb 28.6 pg (27.0-32.0); Mean Corpuscular Volume 92.8 fL (80-94); Monocyte# 0.83 X10^3/uL; Monocyte% 11.6 % (0-10); NRBC Flagged by Analyzer 0 % (0-5); Neutrophil # 4.16 X10^3/uL (2.7-7.7); Neutrophil % 57.9 % (47-70); Platelet Count 258 K/mm3 (150-450); RBC Distribution Width CV 13.2 % (11.6-14.6); RBC Distribution Width SD 44.7 fl (35.1-43.9); Red Blood Count 4.86 M/mm3 (4.6-6.2); White Blood Count 7.2 K/mm3 (4.4-11.0)
[2023-08-01 17:08] LABS: ALB/GLOB Ratio 0.9 RATIO (0.9-2.4); AST(SGOT) 15 U/L (15-37); Alanine Aminotransfer ALT/SGPT 31 U/L (16-61); Albumin, Serum 3.6 g/dL (3.2-5.0); Alkaline Phosphatase 127 U/L (45-117); Anion Gap 4 (5-15); BUN 13 mg/dL (7-18); BUN/Creat Ratio 10.7 RATIO (10-20); Calcium,Total 9.3 mg/dL (8.5-10.1); Chloride 105 mmol/L (98-107); Cholesterol 246 mg/dL (200); Creatinine, Serum 1.21 mg/dL (0.70-1.30); EST Glomerular Filtration Rate 64 mL/min (>60); Est Glom Filt Rate - Afr Amer 77 mL/min (>60); Globulin 4.1 g/dL (2.2-4.2); Glucose 78 mg/dL (74-106); High Density Lipoprotein 40 mg/dL; Potassium 3.8 mmol/L (3.5-5.1); Protein, Total 7.7 g/dL (6.4-8.2); Sodium Level 139 mmol/L (136-145); T4 Free Direct 0.98 ng/dL (0.76-1.46); Thyroid Stim Hormone (TSH) 1.93 uIU/mL (0.358-3.74); Triglycerides 224 mg/dL; Very Low Density Lipoprotein 45 mg/dL (5-40)
== END | disposition home or self-care (01) ==
LOC: BIMLAB 14:51
PROVIDERS: PCP Internal Medicine; Referring Provider Internal Medicine; Visit Provider Internal Medicine
DX: I10 Essential (primary) hypertension (principal); I63.9 Cerebral infarction, unspecified; E11.9 Type 2 diabetes mellitus without complications
CPT/HCPCS: 36415; 80053; 80061; 84439; 84443; 85025

== ENCOUNTER → 2023-11-14 | Outpatient (CLI) | payer MEDICARE, OTHER, SELFPAY ==
--- NOTE | 2023-11-14 14:45 | MRI_ITS ---
STUDY: MRI BRAIN WITHOUT CONTRAST REASON FOR EXAM: Male, 68 years old. R sided hyperesthesia; hx of left medullary CVA TECHNIQUE: Standardized multiplanar fat and water weighted pulse sequences were obtained. MRI examination of the brain obtained with standard protocol including multiplanar multiecho noncontrast imaging. Contrast: No contrast administered. COMPARISON: MRI of 05/04/2021, CT of 05/03/2021 HEMISPHERES, CEREBELLUM AND BRAINSTEM: 1. The cerebral parenchyma, ventricular system, subarachnoid spaces have normal configuration and density. There is a normal gyral pattern. There is normal louie/white differentiation. No midline shift.. 2. Diffuse involutional change and minimal scattered chronic microvascular deep white matter changes. 3. No intraparenchymal mass, hemorrhage, or acute territorial infarct. 4. The cerebellum, brainstem, basilar and suprasellar cisterns have normal appearance. No Chiari malformation. PITUITARY: Infundibulum and pituitary have normal configuration. Midline structures appear normal. CSF SPACES: Appropriate for age. No hydrocephalus. Basal cisterns are patent. VESSELS: 1. There are normal flow voids noted in the great vessels at the skull base ORBITS AND PARANASAL SINUSES: 1. Both globes, extraocular muscles, optic nerves and retrobulbar fat appear unremarkable. 2. Diffuse ethmoid maxillary and sphenoid sinus mucosal thickening. BONY ELEMENTS: Bony elements of the cranial vault, facial skeleton and skull base have normal appearance. SCALP AND SOFT TISSUES: Normal appearance of the soft tissues of the scalp and the visualized face OTHER: None MRI/Brain without Contrast IMPRESSION: 1. Diffuse involutional change and chronic microvascular deep white matter disease. 2. No intraparenchymal mass, hemorrhage, or acute territorial infarct. 3. Significant sinus mucosal thickening Electronically Signed: Marco Oshea MD at 1:39 EDT ,
== END | disposition home or self-care (01) ==
LOC: CVS 14:11
PROVIDERS: PCP Internal Medicine; Referring Provider Psychiatry & Neurology Neurology; Visit Provider Psychiatry & Neurology Neurology
DX: R20.3 Hyperesthesia (principal); Z86.73 Personal history of transient ischemic attack (TIA), and cerebral infarction without residual deficits
CPT/HCPCS: 70551

== ENCOUNTER → 2023-11-21 | Outpatient (CLI) | payer MEDICARE, OTHER, SELFPAY ==
--- NOTE | 2023-11-21 07:34 | CDU_ITS ---
Reason For Study: Hx of Brainstem stroke, Lt Vert A Occlusion Rt. Velocities/BP Lt. Velocities/BP Prox CCA 89/20 cm/sec. Prox CCA 84/26 cm/sec. Mid CCA 83/26 cm/sec. Mid CCA 79/26 cm/sec. Dist CCA 60/18 cm/sec. Dist CCA 55/18 cm/sec. Prox ICA 44/12 cm/sec. Prox ICA 72/24 cm/sec. Mid ICA 89/24 cm/sec. Mid ICA 55/22 cm/sec. Dist ICA 81/32 cm/sec. Dist ICA 94/36 cm/sec. Rt. ICA/CCA = 1.1. Lt. ICA/CCA = 1.2. Prox ECA 66/17 cm/sec. Prox ECA 72/17 cm/sec. Rt. Vert. 42/12 cm/sec. Lt. Vert. 28/5 cm/sec. Right Extracranial There is intimal thickening but no significant atherosclerotic plaque noted in the right common carotid artery. There is heterogeneous, irregular atherosclerotic plaque noted in the right internal carotid artery. There is no significant atherosclerotic plaque noted in the right external carotid artery. Antegrade flow is noted in the right vertebral artery. Left Extracranial There is intimal thickening but no significant atherosclerotic plaque noted in the left common carotid artery. There is heterogeneous, irregular atherosclerotic plaque noted in the left internal carotid artery. There is no significant atherosclerotic plaque noted in the left external carotid artery. Antegrade flow is noted in the left vertebral artery. Procedure Carotid Duplex 24853. This is a Carotid Duplex examination using B-mode, color flow and specral Doppler. Exam performed in department. VL/Carotid Duplex Ultrasound Interpretation Summary Mild (<50%) stenosis right extracranial internal carotid. Mild (<50%) stenosis left extracranial internal carotid. The Right vertebral is patent and antegrade. Left vertebral artery patent with high resistance waveforms Ordering Physician: Candelario Cam Referring Physician: Danny Lazo Performed By: Fanta Ortiz, VIRY, RVT
== END | disposition home or self-care (01) ==
LOC: CVS 07:33
PROVIDERS: PCP Internal Medicine; Referring Provider Psychiatry & Neurology Neurology; Visit Provider Psychiatry & Neurology Neurology
DX: I65.02 Occlusion and stenosis of left vertebral artery (principal)
CPT/HCPCS: 93880

== ENCOUNTER → 2024-03-14 | Outpatient (CLI) | payer MEDICARE, OTHER, SELFPAY ==
[2024-03-14 12:17] LABS: Hematocrit 42.4 % (40-54); Hemoglobin 12.9 g/dL (13.0-16.5); Mean Corp Hgb Conc 30.4 g/dL (32-36); Mean Corpuscular Hgb 28.1 pg (27.0-32.0); Mean Corpuscular Volume 92.4 fL (80-94); Mean Platelet Vol. 10.8 fl (6.2-12.0); Platelet Count 250 K/mm3 (150-450); RBC Distribution Width CV 13.9 % (11.6-14.6); RBC Distribution Width SD 47.6 fl (35.1-43.9); Red Blood Count 4.59 M/mm3 (4.6-6.2); White Blood Count 7.8 K/mm3 (4.4-11.0)
[2024-03-14 12:42] LABS: Cholesterol 146 mg/dL (200); High Density Lipoprotein 43 mg/dL; Triglycerides 117 mg/dL; Very Low Density Lipoprotein 23 mg/dL (5-40)
[2024-03-14 12:50] LABS: Hemoglobin A1c 6.9 % (3.8-5.6)
[2024-03-14 12:56] LABS: Vitamin B12 299 pg/mL (211-911)
[2024-03-14 13:15] LABS: ALB/GLOB Ratio 0.8 RATIO (0.9-2.4); AST(SGOT) 14 U/L (15-37); Alanine Aminotransfer ALT/SGPT 28 U/L (16-61); Albumin, Serum 3.3 g/dL (3.2-5.0); Alkaline Phosphatase 144 U/L (45-117); Anion Gap 3 (5-15); BUN 13 mg/dL (7-18); BUN/Creat Ratio 12.1 RATIO (10-20); Chloride 106 mmol/L (98-107); Creatinine, Serum 1.07 mg/dL (0.70-1.30); EST Glomerular Filtration Rate 73 mL/min (>60); Est Glom Filt Rate - Afr Amer 88 mL/min (>60); Glucose 115 mg/dL (74-106); Protein, Total 7.3 g/dL (6.4-8.2); Sodium Level 141 mmol/L (136-145)
[2024-03-17 20:07] LABS: Free Kappa Light Chains 26.5 mg/L (3.3-19.4); Free Lambda Light Chains 19.9 mg/L (5.7-26.3); Vitamin B1, Thiamine 128.8 nmol/L (66.5-200.0)
== END | disposition home or self-care (01) ==
LOC: MTLAB 09:16
PROVIDERS: PCP Internal Medicine; Referring Provider Psychiatry & Neurology Neurology; Visit Provider Psychiatry & Neurology Neurology
DX: E11.9 Type 2 diabetes mellitus without complications (principal); E78.5 Hyperlipidemia, unspecified; G62.9 Polyneuropathy, unspecified; Z12.5 Encounter for screening for malignant neoplasm of prostate
CPT/HCPCS: 36415; 80053; 80061; 82607; 82746; 83036; 83883; 84153; 84425; 85027; G0103

== ENCOUNTER → 2024-03-29 | Outpatient (CLI) | payer MEDICARE, OTHER, SELFPAY ==
[2024-03-29 17:05] LABS: CPK Total, Creatine Kinase 65 U/L (39-308)
== END | disposition home or self-care (01) ==
LOC: BIMLAB 15:18
PROVIDERS: PCP Internal Medicine; Referring Provider Internal Medicine; Visit Provider Internal Medicine
DX: M62.81 Muscle weakness (generalized) (principal); I63.9 Cerebral infarction, unspecified; E78.5 Hyperlipidemia, unspecified
CPT/HCPCS: 36415; 82550

== ENCOUNTER → 2024-08-07 | Outpatient (CLI) | payer MEDICARE, OTHER, SELFPAY ==
--- NOTE | 2024-08-07 17:37 | CT_ITS ---
PROCEDURE: ABDOMEN/PELVIS W IV CONT ONLY REASON FOR EXAM: Umbilical hernia TECHNIQUE: Abdomen and pelvis CT with intravenous contrast. IV CONTRAST: Administered COMPARISON: None. FINDINGS: Lung bases: Clear small hiatal hernia. Liver: Suspect fatty infiltration of the liver, with areas of focal fatty sparing. No enhancing mass es are identified. Probable liver cyst, within the right hepatic lobe, inferiorly measuring 0.9 cm Gallbladder: Partially contracted. No calcified gallstones. Spleen: Homogeneous enhancement. Not enlarged Pancreas: Punctate calcification within the pancreatic head measures 2 mm. No enhancing masses or pe ripancreatic inflammatory changes. Adrenals: No adrenal masses are identified. Kidneys: Enhance symmetrically. Right renal cyst measures 2.3 cm. Kidneys are negative for obstruct chikis uropathy bilaterally. Bladder: Moderate distention. Bladder diverticula seen bilaterally, largest on the right projecting posteriorly measures up to 5.6 cm, and on the left measures up to 2.8 cm. Reproductive Organs: Unremarkable. Large ventral hernia, located just superior to the umbilicus measuring approximately 7.6 cm AP by 14. 7 cm transverse by 13.0 cm cc, containing portions of the small bowel loops. No proximal bowel obstruction is identified. Mode rate amounts of fecal retention. Appendix appears surgically absent. Scattered diverticula throughout the large bowel mos t prominent of the left colon without gross surrounding inflammatory changes. Lymph nodes: No suspicious lymph node enlargement. Vasculature: Atherosclerotic calcification and plaque formation within the mildly ectatic abdominal a adi. Peritoneum / Retroperitoneum: No ascites. No free air. Inguinal hernia repair bilaterally. Bones: Are intact. Mild spondylotic changes involving the lower thoracic spine and lumbosacral junct ion. CT/Abdomen/Pelvis W IV Cont ONLY IMPRESSION: 1. Large ventral hernia measuring 7.6 x 14.7 by 13.0 cm, containing mesenteric fat and portions of the small bowel loops. No proximal bowel obstruction is identified. 2. Scattered diverticulosis mostly involving the left colon, without gross surr ounding inflammatory changes. 3. Right renal cyst measures 2.3 cm. Negative for obstructive uropathy bilater ally. 4. Bladder diverticula, largest on the right projecting posteriorly measuring u p to 5.6 cm. 5. Probable liver cyst on the right measures 0.9 cm, too small to accurately ch aracterize. 6. Additional findings, as detailed above. One or more dose reduction techniques were used (e.g., Automated exposure contr ol, adjustment of the mA and/or kV according to patient size, use of iterative reconstruction technique). Reading [facility]
== END | disposition home or self-care (01) ==
LOC: CT 17:37
PROVIDERS: PCP Internal Medicine; Referring Provider Surgery; Visit Provider Surgery
DX: K42.9 Umbilical hernia without obstruction or gangrene (principal)
CPT/HCPCS: 74177; Q9967

== ENCOUNTER 2024-09-06 09:16 | Day surgery (SDC) | payer MEDICARE, OTHER, SELFPAY ==
[2024-08-30 14:06] LABS: Hematocrit 47.3 % (40-54); Hemoglobin 14.4 g/dL (13.0-16.5); Mean Corp Hgb Conc 30.4 g/dL (32-36); Mean Corpuscular Hgb 27.7 pg (27.0-32.0); Mean Platelet Vol. 10.6 fl (6.2-12.0); Platelet Count 256 K/mm3 (150-450); RBC Distribution Width CV 13.6 % (11.6-14.6); White Blood Count 7.5 K/mm3 (4.4-11.0)
[2024-08-30 14:31] LABS: Anion Gap 4 (5-15); BUN 13 mg/dL (7-18); BUN/Creat Ratio 10.5 RATIO (10-20); Calcium,Total 9.6 mg/dL (8.5-10.1); Chloride 105 mmol/L (98-107); Creatinine, Serum 1.24 mg/dL (0.70-1.30); EST Glomerular Filtration Rate 62 mL/min (>60); Est Glom Filt Rate - Afr Amer 74 mL/min (>60); Glucose 164 mg/dL (74-106); Potassium 3.8 mmol/L (3.5-5.1); Sodium Level 141 mmol/L (136-145)
--- NOTE | 2024-08-31 09:51 | PAT.ANE_ITS ---
Pre-Assessment Diagnosis/Proposed Procedure Planned Operative Procedure(s): OPEN VENTRAL HERNIA REPAIR WITH MESH Anesthesia History Anesthesia History - environmental attorney: Anesthesia History - environmental attorney Hx Hospitalization No 08/29/24 08:25 Any Problems With Anesthesia No 08/29/24 08:25 Cholinesterase deficiency No 08/29/24 08:25 You/Your Family Experience No 08/29/24 08:25 fever (hyperthermia) with Relationship Recent Exposure to Contagious No 10/08/22 11:47 Disease Does patient have nerve No 08/29/24 08:25 stimulator Patient instructed to have device shut off --Does patient have Pacemaker or ICD? When Was Last Pacemaker Check QUESTION #4 FULL TEXT: You/Your Family Experience fever (hyperthermia) with Anesthesia Last Oral Intake Last Oral intake: Last Oral Intake NPO since Meds taken in AM with sips of water? Meds patient instructed to take am of surgery PONV PONV - environmental attorney: PONV - environmental attorney Female No 08/29/24 08:25 HX of Motion Sickness No 08/29/24 08:25 HX of N/V After Surgery No 08/29/24 08:25 Non-Smoker Yes 08/29/24 08:25 Duration of Surgery greater Yes 08/29/24 08:25 than 60 minutes Number of Risk Factors 2 08/29/24 08:25 PONV Score Moderate Risk 08/29/24 08:25 Height & Weight Height & Weight: Anesthesia: Height & Weight Height 6 ft 1 in 08/23/24 12:59 Respiratory Assessment Respiratory Assessment - environmental attorney: Respiratory Tract Infection Hx - environmental attorney Hx Respiratory Tract Infection Yes: COLD WITH MILD COUGH/NO 08/29/24 08:25 FEVER STOP Sleep Apnea STOP Sleep Apnea - environmental attorney: STOP Sleep Apnea - environmental attorney Hx Hypertension Yes: CONTROLLED WITH MED 08/29/24 08:25 Hx Sleep Apnea No 08/29/24 08:25 CPAP No 10/08/22 15:25 BIPAP No 10/01/22 10:01 Do you snore loudly (louder No 08/29/24 08:25 than talking or can be heard Do you often feel tired/ Yes 08/29/24 08:25 fatigued/ sleepy during daytime? Has anyone observed you stop No 08/29/24 08:25 breathing during sleep? STOP Results Positive 02/19/25 08:25 QUESTION #5 FULL TEXT : Do you snore loudly (louder than talking or can be heard through closed doors)? Tobacco Use History Tobacco Use History - environmental attorney: Tobacco Use History - environmental attorney Tobacco Use Smoking Status Former smoker 08/29/24 08:25 Hx Tobacco Use No 08/29/24 08:25 Years Smoking Packs Smoked per Day Smoking Cessation Date was No - quit smoking greater 08/29/24 08:25 within the last 15 years than 15 years ago Hx Smoking Cessation Date 07/11/79 08/29/24 08:25 Hx Smoking Cessation No 08/29/24 08:25 Counseling Hematologic Medial History Hematologic Hx - environmental attorney: Hematologic Medical Hx - senior designer/art director Hx of Blood Transfusion No 08/29/24 08:25 Hx of Transfusion in last 3 No 08/29/24 08:25 Months Date of Last Transfusion (if within last 3 months) Ever experience any problems No 08/29/24 08:25 with transfusion(s)? Specify any problems Hx of Preganancy in last 3 N/A 08/29/24 08:25 Months Nurse Filling Out Transfusion DSCHRIBER 08/29/24 08:25 & Questions: Date: 08/29/24 08/29/24 08:25 Time: 08:27 08/29/24 08:25 Patient unable to answer at this time (ie. confused, unrespo /Reproduction History /Reproductive History - environmental attorney: /Reproductive Hx- environmental attorney Hx Now No 08/29/24 08:25 Gestational Age (in weeks): EDC: Hx Hx Para Hx Section SAB No 08/29/24 08:25 PFSH Medical History (Updated 08/29/24 @ 08:34 by Lynda Day) Diabetes Restless legs Vertigo Dietary restriction Shortness of breath on exertion Former smoker Umbilical hernia Bilateral lower extremity edema Edema of both lower extremities due to peripheral venous insufficiency Muscle weakness (generalized) Type 2 diabetes mellitus Health care maintenance Wears glasses Cancer Arthritis High cholesterol History of edema History of echocardiogram History of stress test Cardiology follow-up encounter History of Holter monitoring Obesity (BMI 30-39.9) Borderline type 2 diabetes mellitus Cerebrovascular disease Essential hypertension Muscle pain Hypertension BPH (benign prostatic hyperplasia) Hyperlipidemia Stroke, Wallenberg's syndrome Occlusion of left vertebral artery Grade I diastolic dysfunction LVH (left ventricular hypertrophy) CVA (cerebral vascular accident) Obesity Allergic rhinitis Hypertensive urgency Vomiting Asthma Home Medications ?Medication ?Instructions ?Recorded ?Last Taken ?Type aspirin 81 mg chewable tablet 81 mg PO DAILY heart hea lth 05/05/21 09/30/22 History cholecalciferol (vitamin D3) 25 25 mcg PO DAILY #0 tab s 05/22/21 Unknown Rx mcg (1,000 unit) tablet epinephrine 0.125 mg/actuation 1 puff inhalation Q6H P RN ASTHMA 10/01/22 Unknown History aerosol inhaler (Primatene Mist) metformin 500 mg tablet,extended 500 mg PO BID #180 ta bs 05/11/24 Unknown Rx release 24 hr gabapentin 100 mg capsule 200 mg (2 x 100 mg) PO TID # 180 07/16/24 Unknown Rx caps amlodipine 2.5 mg tablet 2.5 mg PO DAILY #90 tabs Unknown Rx Allergy/AdvReac Type Severity Reaction Status Date / Time latex Allergy Rash Verified 08/29/24 08:23 atorvastatin AdvReac Intermediate rash Verified 08/29/24 08:23 Family History Mother HLD (hyperlipidemia) Hypertension Heart disease Myocardial infarction Father HLD (hyperlipidemia) Hypertension Heart disease Myocardial infarction Cancer Prostate Surgical History (Updated 08/29/24 @ 08:34 by Lynda Day) Hx of transurethral resection of prostate Hx of appendectomy Hx of surgical procedure H/O inguinal hernia repair Social History household members: spouse Smoking Status: Former smoker Tobacco: How many years used: 10 Electronic Cigarette Use: not used second hand exposure: No alcohol intake: never substance use type: does not use caffeine: Yes Type: coffee Number of servings: 1 Audit: Pertinent Findings Pertinent Findings EKG Perinent findings: 08/30/24: Normal sinus rhythm Left axis deviation Right bundle branch block Inferior infarct (cited on or before 03-May-2021) Stress test pertinent findings: 1. Rest and stress SPECT Cardiolite nuclear imaging demonstrate relative uniform tracer uptake and myocardial perfusion appearing within normal limits. 2. The gated Cardiolite study reports an LVEF of 57%. Echo (EF%) pertinent findings: Unremarkable with EF of 60% Additional pertinent findings: Telemetry predates Stress test and current ECG Recommendation Anesthesia Recommendation Anesthesia recommendation: OPTIMIZED for anesthesia
[2024-09-06] VITALS (11 sets, daily range): BP systolic 133–166; BP diastolic 81–98; PULSE 67–77; RESP 12–16; TEMP 36.2–36.8; O2SAT 92–100; BMI 39.6
[2024-09-06 10:05] LABS: Bedside Glucose 113 mg/dL (74-106)
[2024-09-06] MEDS: 0.9% Normal Saline (1000mL) 1,000 ML 15 ML IV (10:17)
--- NOTE | 2024-09-06 10:31 | PCM.PRE.AN2 ---
ASA Classification* ASA Classification ASA Classification: 3 Assessment & Plan Anesthesia* Anesthesia Assessment Anesthesia Assessment: Discussed sedation and/or anesthesia options, risks, benefits, and alternatives with patient/parents/legal guardian/POA. Questions invited. The patient/parents/legal guardian/POA seems to understand and agrees to proceed with anesthesia plan. Reviewed the physical assessment, medical history, allergy history and patient home medications list prior to surgery/procedure/anesthetic and documented any changes. Performed airway and anesthesia risk assessments. Anesthesia Type Anesthesia Type: General (Consider GlideScope for intubation.) History Source History Obtained from:: Patient and Chart Anesthesia Focused Assessment* Temperature: 97.1 F Pulse Rate: 72 Blood Pressure: 157/95 Respiratory Rate: 16 Pulse Ox: 97 Oxygen Delivery Method: Room Air Airway Assessment Mouth opens: >3 cm Mallampati Score: IV Teeth Condition: Chipped/Broken (Tooth #7 is broken.) and Missing (Patient has several missing teeth. Remainder of teeth are tight.) Neck Range of motion (ROM): Limited ROM (Slight decrease in extension) Focused Labs Anesthesia Preop lab: CBC WBC 7.5 K/mm3 (4.4-11.0) 08/30/24 13:08/30/24 RBC 5.20 M/mm3 (4.6-6.2) 08/30/24 13:08/30/24 Hgb 14.4 g/dL (13.0-16.5) 08/30/24 13:08/30/24 Hct 47.3 % (40-54) 08/30/24 13:08/30/24 Plt Count 256 K/mm3 (150-450) 08/30/24 13:08/30/24 CHEMISTRY Potassium 3.8 mmol/L (3.5-5.1) 08/30/24 13:08/30/24 Sodium 141 mmol/L (136-145) 08/30/24 13:08/30/24 Magnesium 2.2 mg/dL (1.6-2.6) 05/12/21 05:32 05/12/21 BUN 13 mg/dL (7-18) 08/30/24 13:08/30/24 Creatinine 1.24 mg/dL (0.70-1.30) 08/30/24 13:09 08/30/24 Glucose 164 mg/dL (74-106) H 08/30/24 13:09 08/30/24 POC Glucose 113 mg/dL (74-106) H 09/06/24 09:46 09/06/24 TSH 1.93 uIU/mL (0.358-3.74) 08/01/23 14:52 08/01/23 COAG PT 12.9 SECONDS (11.7-14.9) 05/03/21 18:40 05/03/21 Pre-Assessment Diagnosis/Proposed Procedure Planned Operative Procedure(s): OPEN VENTRAL HERNIA REPAIR WITH MESH Anesthesia History Anesthesia History - economic development coordinator: Anesthesia History - economic development coordinator Hx Hospitalization No 08/29/24 08:25 Any Problems With Anesthesia No 08/29/24 08:25 Cholinesterase deficiency No 08/29/24 08:25 You/Your Family Experience No 08/29/24 08:25 fever (hyperthermia) with Relationship Recent Exposure to Contagious No 09/06/24 09:53 Disease Does patient have nerve No 08/29/24 08:25 stimulator Patient instructed to have device shut off --Does patient have Pacemaker No 09/06/24 09:53 or ICD? When Was Last Pacemaker Check QUESTION #4 FULL TEXT: You/Your Family Experience fever (hyperthermia) with Anesthesia Last Oral Intake Last Oral intake: Last Oral Intake NPO since 08:00 09/06/24 09:53 Meds taken in AM with sips of water? Meds patient instructed to take am of surgery Any additional information?: Yes NPO since: 08:00 (Patient black coffee at 8 AM.) PONV PONV - economic development coordinator: PONV - economic development coordinator Female No 08/29/24 08:25 HX of Motion Sickness No 08/29/24 08:25 HX of N/V After Surgery No 08/29/24 08:25 Non-Smoker Yes 08/29/24 08:25 Duration of Surgery greater Yes 08/29/24 08:25 than 60 minutes Number of Risk Factors 2 08/29/24 08:25 PONV Score Moderate Risk 08/29/24 08:25 Height & Weight Height & Weight: Anesthesia: Height & Weight Height 6 ft 1 in 09/06/24 09:53 Weight: 136.4 kg 09/06/24 09:53 Body Mass Index (BMI) 39.6 09/06/24 09:53 Respiratory Assessment Respiratory Assessment - economic development coordinator: Respiratory Tract Infection Hx - economic development coordinator Hx Respiratory Tract Infection Yes: COLD WITH MILD COUGH/NO 08/29/24 08:25 FEVER Any additional information?: Yes Hx Respiratory Tract Infection: Yes (Patient has had some sinus drainage. no colds symptoms in 2 weeks) STOP Sleep Apnea STOP Sleep Apnea - economic development coordinator: STOP Sleep Apnea - economic development coordinator Hx Hypertension Yes: CONTROLLED WITH MED 08/29/24 08:25 Hx Sleep Apnea No 08/29/24 08:25 CPAP No 10/08/22 15:25 BIPAP No 10/01/22 10:01 Do you snore loudly (louder No 08/29/24 08:25 than talking or can be heard Do you often feel tired/ Yes 08/29/24 08:25 fatigued/ sleepy during daytime? Has anyone observed you stop No 08/29/24 08:25 breathing during sleep? STOP Results Positive 08/29/24 08:25 QUESTION #5 FULL TEXT : Do you snore loudly (louder than talking or can be heard through closed doors)? Tobacco Use History Tobacco Use History - economic development coordinator: Tobacco Use History - economic development coordinator Tobacco Use Smoking Status Former smoker 08/29/24 08:25 Hx Tobacco Use No 08/29/24 08:25 Years Smoking Packs Smoked per Day Smoking Cessation Date was No - quit smoking greater 08/29/24 08:25 within the last 15 years than 15 years ago Hx Smoking Cessation Date 07/11/79 08/29/24 08:25 Hx Smoking Cessation No 08/29/24 08:25 Counseling Hematologic Medial History Hematologic Hx - economic development coordinator: Hematologic Medical Hx - management trainer Hx of Blood Transfusion No 08/29/24 08:25 Hx of Transfusion in last 3 No 08/29/24 08:25 Months Date of Last Transfusion (if within last 3 months) Ever experience any problems No 08/29/24 08:25 with transfusion(s)? Specify any problems Hx of Preganancy in last 3 N/A 08/29/24 08:25 Months Nurse Filling Out Transfusion DSCHRIBER 08/29/24 08:25 & Questions: Date: 08/29/24 08/29/24 08:25 Time: 08:08/29/24 08:25 Patient unable to answer at this time (ie. confused, unrespo /Reproduction History /Reproductive History - economic development coordinator: /Reproductive Hx- economic development coordinator Hx Now No 08/29/24 08:25 Gestational Age (in weeks): EDC: Hx Hx Para Hx Section SAB No 08/29/24 08:25 Active Medications Active Medications: Current Medications Generic Name Dose Route Start Last Admin Trade Name Freq PRN Reason Stop Dose Admin Cefazolin Sodium 3 gm/ N/A 30 mls @ 600 mls/hr 09/06/24 11:00 IV 09/06/24 11:02 PREOP ONE Sodium Chloride 1,000 mls @ 15 mls/hr 09/06/24 09:25 09/06/24 10:17 IV 09/11/24 22:44 15 mls/hr .Q48H ERYN Administration Protocol [facility] Medical History (Updated 09/06/24 @ 10:[address] Bayron Lauren MD) Diabetes Restless legs Vertigo Dietary restriction Shortness of breath on exertion Former smoker Umbilical hernia Bilateral lower extremity edema Edema of both lower extremities due to peripheral venous insufficiency Muscle weakness (generalized) Type 2 diabetes mellitus Health care maintenance Wears glasses Cancer Arthritis High cholesterol History of edema History of echocardiogram History of stress test Cardiology follow-up encounter History of Holter monitoring Obesity (BMI 30-39.9) Borderline type 2 diabetes mellitus Cerebrovascular disease Essential hypertension Muscle pain Hypertension BPH (benign prostatic hyperplasia) Hyperlipidemia Stroke, Wallenberg's syndrome Occlusion of left vertebral artery Grade I diastolic dysfunction LVH (left ventricular hypertrophy) CVA (cerebral vascular accident) Obesity Allergic rhinitis Hypertensive urgency Vomiting Asthma Home Medications ?Medication ?Instructions ?Recorded ?Last Taken ?Type aspirin 81 mg chewable tablet 81 mg PO DAILY heart health 05/05/21 09/05/24 17:00 History cholecalciferol (vitamin D3) 25 25 mcg PO DAILY #0 tabs 05/22/21 09/05/24 Rx mcg (1,000 unit) tablet epinephrine 0.125 mg/actuation 1 puff inhalation Q6H PRN ASTHMA 10/01/22 Unknown History aerosol inhaler (Primatene Mist) gabapentin 100 mg capsule 200 mg (2 x 100 mg) PO TID #180 01/06/25 02/26/25 Rx caps amlodipine 2.5 mg tablet 2.5 mg PO DAILY #90 tabs 08/23/24 09/05/24 Rx Allergy/AdvReac Type Severity Reaction Status Date / Time latex Allergy Rash Verified 09/06/24 09:52 atorvastatin AdvReac Intermediate rash Verified 09/06/24 09:52 Family History Mother HLD (hyperlipidemia) Hypertension Heart disease Myocardial infarction Father HLD (hyperlipidemia) Hypertension Heart disease Myocardial infarction Cancer Prostate Surgical History Hx of transurethral resection of prostate Hx of appendectomy Hx of surgical procedure H/O inguinal hernia repair Social History household members: spouse Smoking Status: Former smoker Tobacco: How many years used: 10 Electronic Cigarette Use: not used second hand exposure: No alcohol intake: never substance use type: does not use caffeine: Yes Type: coffee Number of servings: 1 Review of Systems (Anesthesia) ROS Narrative System reviewed and no additional complaints, except as documented.
--- NOTE | 2024-09-06 10:47 | PCM.HP.STD ---
HPI - General General Date of Admission: 09/06/24 Date of Service: 09/06/24 Chief Complaint: Ventral hernia HPI Narrative LINO DRAKE, is a 69 M who presents with a ventral hernia. He was seen in the office recently. I offered him surgical repair with mesh. We discussed the details of the planned procedure and he wishes to proceed. He presents today for this repair [facility] Medical History (Updated 09/06/24 @ 10:[address] Wilbert Mantilla MD) Ventral hernia Diabetes Restless legs Vertigo Dietary restriction Shortness of breath on exertion Former smoker Umbilical hernia Bilateral lower extremity edema Edema of both lower extremities due to peripheral venous insufficiency Muscle weakness (generalized) Type 2 diabetes mellitus Health care maintenance Wears glasses Cancer Arthritis High cholesterol History of edema History of echocardiogram History of stress test Cardiology follow-up encounter History of Holter monitoring Obesity (BMI 30-39.9) Borderline type 2 diabetes mellitus Cerebrovascular disease Essential hypertension Muscle pain Hypertension BPH (benign prostatic hyperplasia) Hyperlipidemia Stroke, Wallenberg's syndrome Occlusion of left vertebral artery Grade I diastolic dysfunction LVH (left ventricular hypertrophy) CVA (cerebral vascular accident) Obesity Allergic rhinitis Hypertensive urgency Vomiting Asthma Home Medications ?Medication ?Instructions ?Recorded ?Last Taken ?Type aspirin 81 mg chewable tablet 81 mg PO DAILY heart health 05/05/21 09/05/24 17:00 History cholecalciferol (vitamin D3) 25 25 mcg PO DAILY #0 tabs 05/22/21 09/05/24 Rx mcg (1,000 unit) tablet epinephrine 0.125 mg/actuation 1 puff inhalation Q6H PRN ASTHMA 10/01/22 Unknown History aerosol inhaler (Primatene Mist) gabapentin 100 mg capsule 200 mg (2 x 100 mg) PO TID #180 07/16/24 09/05/24 Rx caps amlodipine 2.5 mg tablet 2.5 mg PO DAILY #90 tabs 08/23/24 09/05/24 Rx Allergy/AdvReac Type Severity Reaction Status Date / Time latex Allergy Rash Verified 09/06/24 09:52 atorvastatin AdvReac Intermediate rash Verified 09/06/24 09:52 Family History Mother HLD (hyperlipidemia) Hypertension Heart disease Myocardial infarction Father HLD (hyperlipidemia) Hypertension Heart disease Myocardial infarction Cancer Prostate Surgical History Hx of transurethral resection of prostate Hx of appendectomy Hx of surgical procedure H/O inguinal hernia repair Social History household members: spouse Smoking Status: Former smoker Tobacco: How many years used: 10 Electronic Cigarette Use: not used second hand exposure: No alcohol intake: never substance use type: does not use caffeine: Yes Type: coffee Number of servings: 1 Vital Signs Vital Signs Vital Signs: 09/06/24 09:53 09/06/24 09:53 09/06/24 10:46 Temperature 97.1 F L 97.1 F L Temperature Source Temporal Pulse Rate 72 72 Respiratory Rate 16 16 Respiratory Pattern Normal Blood Pressure 157/95 H 157/95 H Blood Pressure Mean 115 Blood Pressure Source Monitor Blood Pressure Position Semi-Fowlers Blood Pressure Location Right Arm Pulse Ox 97 97 Oxygen Delivery Method Room Air Room Air Weight Weight: 300 lb 11.368 oz Body Mass Index (BMI) 39.6 Physical Exam Const alert, oriented x3 and no apparent distress Results Lab / Micro Data 08/30/24 13:09 08/30/24 13:09 Labs: Laboratory Results - last 24 hr 09/06/24 09:46: POC Glucose 113 H Assessment & Plan Assessment/Plan (1) Ventral hernia: PLAN: Plan The patient is a 69-year-old male with a ventral hernia. I have offered him an open repair with mesh. We discussed the details of the planned procedure and he wishes to proceed. Surgery will begin shortly
--- NOTE | 2024-09-06 11:00 | HERN_PTH ---
PATIENT: LINO DRAKE [place] [facility] [id number] AGE/SX: 69/M ROOM: RE09/06/[address]: Dr. Wilbert Mantilla MD : [id number] BED: DIS: 09/06/2024 SPEC #: [id number] RECD: 09/07/24 08:50 STATUS: GINA GUTIERRES #: [id number] JUAN CARLOS: 09/06/24 11:[address]: Wilbert Mantilla DEPT: SURGICAL PATHOLOGY RECD BY: Анна Manriquez ENTERED: 09/07/24 10:13 SP TYPE: Hernia OTHR DR: Dr. Danny Cabrera MD Tissues: HERNIA Procedures: Surgery Specimen Level II HEADER OPERATION: Hernia, open ventral repair with mesh PRE-OP DIAGNOSIS: Ventral hernia TISSUE SUBMITTED: Hernia sac MICROSCOPIC DIAGNOSIS Hernia sac, excision: * Fibroadippose tissue partially covered by mesothelium, consistent with hernia sac. MICROSCOPIC DESCRIPTION Slides are reviewed. GROSS DESCRIPTION Received in fixative is one container labeled with the patient's name and designated Hernia sac. The specimen consists of two pieces of soft tissue measuring in aggregate 9 x 9 x 2 cm. Sections do not reveal any mass lesions. Supply Analyst sections are submitted in one cassette. 09/07/2024 TC: [id number]
[2024-09-06] MEDS: Cefazolin 3 GM in Syringe 1 EACH IV (11:15)
[2024-09-06] MEDS: Gentamicin 80 MG/2 ML Vial (11:45)
[2024-09-06] MEDS: Bupivacaine Mpf 0.5% 30 ML VIAL (13:46)
[2024-09-06] MEDS: Bupiv/Epi 0.25% 30 ML Vial (13:48)
--- NOTE | 2024-09-06 14:16 | DCINST_ITS ---
Discharge Instructions Diet Discharge Diet: Light diet - advance as tolerated Activity Discharge Activity: Return to Normal Activity and May Shower May shower in (days): 1 Ice area for (Minutes): 30 Lifting Restrictions: Keep lifting under 20 pounds for 6 weeks Additional Activity Instructions:: Wear abdominal binder for comfort and support Dressing / Incision Call your doctor if your incision/area has: Continuous Slow Oozing, Sudden Increased Bleeding, Increased Pain/ Swelling, Increased Redness, Foul Smelling Discharge and Swelling at the incision site Call your doctor if you observe: Fever of 101 or Higher Remove Dressing in: 3 days Cleanse incision/area with: Soap & Water Additional Dressing/Incision Instructions:: Empty and record SONY drain amounts daily Follow Up Care Please Follow Up With: Wilbert Mantilla MD When: 5-7 days-please call to schedule appointment Test Results: Test results from this visit will be discussed in further detail at your follow- up appointment, if applicable. Discharge Plan Admission Primary Reason for Your Visit: Open ventral hernia repair with mesh Attending Provider: Wilbert Mantilla Primary Care Provider: Danny Cabrera Instructions Print Language: Indonesian Discharge Orders/Prescriptions Prescriptions: New oxycodone-acetaminophen [Percocet] 5-325 mg tablet 1 tab PO Q8H PRN (Reason: pain) 5 Days Qty: 14 0RF Continued aspirin 81 mg tablet,chewable 81 mg PO DAILY cholecalciferol (vitamin D3) 25 mcg (1,000 unit) Tablet 25 mcg PO DAILY Qty: 0 0RF Primatene Mist 0.125 mg/actuation Hfa Aerosol Inhaler 1 puff INHALATION Q6H PRN (Reason: ASTHMA) Rx Instructions: may repeat once after 1 minute gabapentin 100 mg capsule 200 mg PO TID Qty: 180 3RF amlodipine 2.5 mg tablet 2.5 mg PO DAILY Qty: 90 0RF Referrals / Follow Up: Danny Cabrera MD [Primary Care Provider] - Disposition Disposition (needs filled in before D/C Order can be placed): Home, Self Care
--- NOTE | 2024-09-06 14:17 | PCM.POST.ANE ---
Anesthesia: Postop Eval I Current Vital Signs Temperature: 97.1 F Pulse Rate: 77 Blood Pressure: 166/87 Respiratory Rate: 12 Pulse Ox: 94 Oxygen Delivery Method: Nasal Cannula Oxygen Flow Rate (L/min): 4 Assessment Airway patent: Yes Spontaneous unlabored respirations: Yes Mental status: Awake and Calm nausea: No Vomiting: No Anesthesia Complication: No Fluid Hydration Crystalloid volume administer (ml): 1,500 Total IV fluid infused: 1,500 Progress Note Anesthesia document: Postop Eval 1 completed: Yes
--- NOTE | 2024-09-06 14:30 | PCM.OPRPT ---
Problems Associated Problem List Diagnoses (1) Ventral hernia: Procedures Digestive 40xxx-49xxx: 67620 RPR AA HRN RCR > 10 [facility] Operative Report (Standard) Operative Information Date of Procedure: 09/06/24 Pre-Operative Diagnosis: Ventral hernia Post-Operative Diagnosis: Ventral hernia Surgery/Procedure Performed: Open ventral hernia repair with mesh carton forming machine adjuster: Yes Through Operator: Manpreet Bolaños Tasks completed by legal document assistant: Closing and Retracting Additional assistant director of financial aid?: No Type of Anesthesia: General and Local RN Documented Start/Stop Times: Operation Date: 09/06/24 11:00 Case Time Into Pre-Op 09/06/24 09:19 Out of Pre-Op 09/06/24 11:06 Anesthesia Start 09/06/24 11:08 Into Room 09/06/24 11:08 Procedure Start 09/06/24 11:31 Procedure End 09/06/24 14:08 Anesthesia End 09/06/24 14:12 Out of Room 09/06/24 14:12 Into Recovery 09/06/24 14:13 Procedure Start Time: 11:31 Procedure Stop Time: 14:12 Select all DRAINS/GRAFTS/IMPLANTS that apply: Drains Drain details: 15 Micronesian round SONY drain x 2 Special Medications: Preoperative Ancef Estimated Blood Loss: 40 mL Specimen collected: Yes Description of specimen(s) removed: Hernia sac Description of surgery: The patient is a 69-year-old male who presents today for elective ventral hernia repair with mesh. Patient claims that he has had some recent coughing and developed a hernia. This was a fairly sizable hernia however the hernia defect seemed less than [address] scan. We discussed the details of the planned procedure and he wished to proceed. He was brought to the operating room today following informed consent. Preoperative antibiotics were given and a timeout was performed. He was placed supine the operative table with arms outstretched on arm boards. General endotracheal anesthesia was induced. Once adequately sedated the abdomen is then prepped and draped in the usual sterile manner. A midline incision was made using a #10 blade overlying the hernia. This was carried out to just below the umbilicus. Bovie electrocautery was then used dissect down through subcutaneous tissue. The hernia was clearly visible. This was bluntly dissected out. The overall size of the hernia was probably 16 to 18 cm in greatest dimension. All of the subcutaneous tissue was cleared away such that the base of the hernia sac was cleared. Once this was performed of the hernia sac was incised in a vertical manner. The hernia contents were then dissected free from the hernia sac. This contained mostly omentum. This was then reduced back into the abdomen. The hernia sac was then excised and sent to pathology. The fascial defect was about 4 x 6 cm. Sabino's were placed on the edges of the fascia and then a retrorectus dissection was performed in all directions from the edge of the fascial defect. It was noted as we dissected down inferiorly towards the umbilicus that there appeared to be evidence of previous umbilical hernia repair surgery. I suspect that this also included mesh. As a result I really could not dissect down more than about 4 cm from the inferior most edge of the fascial defect. Otherwise I was able to clear at least 10 cm around the fascial edges in all directions otherwise. Once this plane was developed the posterior rectus sheath was then closed using 0 Vicryl in a running manner. Once this was closed I selected a Ventralight ST mesh that was 15 x 10 cm. This was laid in the retrorectus space. A SNOY drain was also inserted on top of the mesh and was brought out through the left lower quadrant. The fascia was then closed using no Ethibond in an interrupted [id number] manner several sutures were placed until the fascia was nicely closed. Another SONY drain was placed in the subcutaneous space as there was a fairly sizable tissue void which was previously taken up by the hernia. The subdermal layer was then closed using 3-0 Vicryl. 4-0 Vicryl was then used to close skin. Skin glue was applied as dressing. The subcutaneous drain was brought out through the right lower quadrant. 4 x 4 and ABD dressing was applied. An abdominal binder was also placed on the abdomen. Local anesthetic was injected at the level of the skin as well as at the fascia. He was awakened from anesthesia and taken to recovery in good condition. A DEE was utilized as a coding assistant. Her role included assistance with retraction and skin closure Surgical Findings: 4 x 6 cm fascial defect Complications Complications: No Admit VTE Documentation VTE Present on Admission: No VTE Mechan Device Prophylaxis: SCD's VTE Pharm Prophylaxis ordered?: No Reason prophylaxis not ordered: Treatment Not Indicated
[2024-09-06] MEDS: HYDROcodone Bitartrate/Apap 5/325 Tablet PO (16:11)
--- NOTE | 2024-09-06 21:30 | POSTOPAN2_ITS ---
Anesthesia Postop Eval I Sum Postop Eval Completion status Anesthesia document: Postop Eval 1 completed: Yes Anesthesia Postop Eval I Summary Anesthesia Postop Eval I Summary: Anesthesia Postop Eval I: Assessment Summary Airway patent Yes 09/06/24 14:17 SUPERVISOR ADVERTISING [employer]PATCH [email or web address] Spontaneous unlabored Yes 09/06/24 14:17 SUPERVISOR ADVERTISING [employer]ERKS.MDOT respirations Mental status Awake,Calm 09/06/24 14:17 SUPERVISOR ADVERTISING [employer]ERKS.MDOT nausea No 09/06/24 14:17 SUPERVISOR ADVERTISING [employer]PATCH CLERKS.[email or web address] Vomiting No 09/06/24 14:17 SUPERVISOR ADVERTISING DISPATCH CLERKS.[email or web address] Anesthesia Postop Eval I: Fluid Summary Crystalloid volume administer 1,500 09/06/24 14:17 SUPERVISOR ADVERTISING [employer]PATCH CLERKS.MDOT (ml) Colloids volume administered ( ml) Blood Product volume administered (ml) Total IV fluid infused 1,500 09/06/24 14:17 SUPERVISOR ADVERTISING [employer]PATCH [email or web address].[email or web address] Anesthesia Postop Eval I: Summary Notes Anesthesia Complication No 09/06/24 14:17 SUPERVISOR ADVERTISING [employer]PATCH [email or web address].[email or web address] Anesthesia Complication Comment: Post-operative progress note Anesthesia: Postop Eval II Evaluation Mental status: Awake and Calm Pain Level: 1 nausea: No Vomiting: No Complications Anesthesia Complication: No
--- NOTE | 2024-09-06 21:30 | PCM.POSTANE2 ---
Anesthesia Postop Eval I Sum Postop Eval Completion status Anesthesia document: Postop Eval 1 completed: Yes Anesthesia Postop Eval I Summary Anesthesia Postop Eval I Summary: Anesthesia Postop Eval I: Assessment Summary Airway patent Yes 09/06/24 14:17 TRAVEL [email or web address] Spontaneous unlabored Yes 09/06/24 14:17 TRAVEL COORDINATOR.MDOT respirations Mental status Awake,Calm 09/06/24 14:17 TRAVEL COORDINATOR.MDOT nausea No 09/06/24 14:17 TRAVEL COORDINATOR.[email or web address] Vomiting No 09/06/24 14:17 TRAVEL COORDINATOR.[email or web address] Anesthesia Postop Eval I: Fluid Summary Crystalloid volume administer 1,500 09/06/24 14:17 TRAVEL COORDINATOR.MDOT (ml) Colloids volume administered ( ml) Blood Product volume administered (ml) Total IV fluid infused 1,500 09/06/24 14:17 TRAVEL COORDINATOR.MDOT Anesthesia Postop Eval I: Summary Notes Anesthesia Complication No 09/06/24 14:17 TRAVEL COORDINATOR.MDOT Anesthesia Complication Comment: Post-operative progress note Anesthesia: Postop Eval II Evaluation Mental status: Awake and Calm Pain Level: 1 nausea: No Vomiting: No Complications Anesthesia Complication: No
== END 2024-09-06 18:20 | disposition home or self-care (01) ==
LOC: SDC 09:17 → AC 09:17
PROVIDERS: Anesthesiology; PCP Internal Medicine; Referring Provider Surgery; Visit Provider Surgery
PROC: (CPT 49595; principal; 2024-09-06 10:45)
DX: K43.9 Ventral hernia without obstruction or gangrene (principal); I10 Essential (primary) hypertension; Z79.899 Other long term (current) drug therapy; Z87.891 Personal history of nicotine dependence
CPT/HCPCS: 49595; 00832; 36415; 80048; 82962; 85027; 88302; 93005; C1781; J2405

== ENCOUNTER → 2025-04-18 | Outpatient (CLI) | payer MEDICARE, OTHER, SELFPAY ==
[2025-04-23 15:08] LABS: Albumin 3.5 g/dL (2.9-4.4); Gamma Globulin 0.9 g/dL (0.4-1.8); Immunoglobulin A 427 mg/dL (61-437); Immunoglobulin G 1150 mg/dL (603-1613); Immunoglobulin M 66 mg/dL (20-172); PROEL- TOTAL PROTEIN 7.0 g/dL (6.0-8.5)
== END | disposition home or self-care (01) ==
LOC: MTLAB 13:49
PROVIDERS: PCP Internal Medicine; Referring Provider Psychiatry & Neurology Neurology; Visit Provider Psychiatry & Neurology Neurology
DX: G62.9 Polyneuropathy, unspecified (principal)
CPT/HCPCS: 36415; 82784; 84165; 86334; 86335